=== PATIENT | male | born 1955 | race Hispanic/Latino ===

== ENCOUNTER 2017-10-16 14:25 | Emergency (ER) | payer OTHER ==
--- OUTSIDE RECORDS SUMMARY | 2017-10-16 14:27 | XMS REPORT | Clinical Summary ---
:1955 Author Organization [facility] Address [address] [place] [address] Care Team Providers Name Role Phone Jose Alfredo Prieto MD Primary Care Provider Allergies No Known Allergies Current Medications Prescription Sig. Disp. Refills Start Date End Date Status gabapentin (NEURONTIN) 400 Take 400 mg by 3 12/09/2015 Active MG capsule mouth 2 (two) times a day. METOPROLOL SUCCINATE ORAL Take by mouth. Active ASPIRIN ORAL Take by mouth. Active Active Problems Problem Noted Date Delusional disorder 02/29/2016 Sepsis 02/24/2016 Diabetes mellitus 02/24/2016 Essential hypertension 02/24/2016 Family History Medical History Relation Name Comments Diabetes Mother Diabetes Sister Relation Name Status Comments Mother Sister Social History Tobacco Use Types Packs/Day Years Used Date Never Smoker Alcohol Use Drinks/Week oz/Week Comments Yes occasional Sex Assigned at Date Recorded Not on file Last Filed Vital Signs Not on file Plan of Treatment Health Maintenance Due Date Last Done Comments FOOT EXAM 1963 OPHTHALMOLOGY EXAM 1965 URINE MICROALBUMIN 1963 COLONOSCOPY 2003 SHINGRIX VACCINE (#1) 2003 ZOSTER VACCINE 2013 INFLUENZA VACCINE 01/16/2018 Results Not on fileafter 10/15/2016 Insurance Payer Benefit Plan / Group Subscriber ID Type Phone Address AETNA MEDICARE AETNA MEDICARE HMO/PPO [facility] xxxxxxxx HMO Work: [address] [phone] [place], [place] [address] Home:
--- NOTE | 2017-10-16 15:43 | ER ---
Nurse's Notes [facility] Name: Jose Hoyt Age: 62 yrs Sex: Male : 1955 Arrival Date: 10/16/2017 Time: 14:29 Bed 12 Private MD: David Alfred Diagnosis: Rash and other nonspecific skin eruption Presentation: 10/16 14:44 Presenting complaint: Patient states: I did yard work and I think i got in poison sy. I cant get a hold of Dr. Alfred so I came here. Transition of care: patient was not received from another setting of care. Onset of symptoms was October 11, 2017. Initial Sepsis Screen: Does the patient meet any 2 criteria? No. Patient's initial sepsis screen is negative. Does the patient have a suspected source of infection? No. Patient's initial sepsis screen is negative. Care prior to arrival: None. 14:44 Method Of Arrival: Ambulatory 14:44 Acuity: SANDY 5 Triage Assessment: 14:48 General: Appears in no apparent distress. uncomfortable, Behavior is calm, cooperative, appropriate for age. Pain: Complains of pain in right arm Pain currently is 2 out of 10 on a pain scale. Historical: - Allergies: 14:48 steroids; 14:48 Sulfa (Sulfonamide Antibiotics); - Home Meds: 14:48 aspirin 81 mg Oral TbEC 1 tab once daily [Active]; Vitamin C 1,000 mg Oral tab [Active]; gabapentin 400 mg Oral cap 1 cap 3 times per day [Active]; hydroxychloroquine 200 mg Oral tab 1 tab once daily [Active]; losartan-hydrochlorothiazide 100-25 mg Oral tab 1 tab once daily [Active]; triamterene-hydrochlorothiazid 37.5-25 mg Oral cap 1 cap once daily [Active]; blood pressure medicaiton unknown [Active]; - PMHx: 14:48 Anxiety; Hypertension; - PSHx: 14:48 None; - Immunization history:: Adult Immunizations up to date. - Social history:: Smoking status: Patient/guardian denies using tobacco, Patient/guardian denies using alcohol, street drugs, The patient lives with spouse. - Family history:: not pertinent. Screenin:21 Abuse screen: Denies threats or abuse. Denies injuries from another. Nutritional aj screening: No deficits noted. Tuberculosis screening: No symptoms or risk factors identified. Fall Risk None identified. Assessment: 15:21 General: Appears in no apparent distress. comfortable, Behavior is calm, cooperative, aj appropriate for age. Pain: Denies pain. Neuro: Level of Consciousness is awake, alert, obeys commands, Oriented to person, place, time, situation, Appropriate for age. Respiratory: Airway is patent Respiratory effort is even, unlabored, Respiratory pattern is regular, symmetrical. GI: No signs and/or symptoms were reported involving the gastrointestinal system. Derm: Rash noted that is draining clear fluid, itchy, on right lateral anterior chest, right lateral posterior chest, right antecubital area, dorsal aspect of right forearm and left arm Reports itching. Vital Signs: 14:48 BP 154 / 84; Pulse 76; Resp 15; Temp 98.6(O); Pulse Ox 97% on R/A; Weight 106.59 kg; ch Height 5 ft. 3 in. (160.02 cm); Pain 2/10; 14:48 Body Mass Index 41.63 (106.59 kg, 160.02 cm) ED Course: 14:29 Patient arrived in ED. mr 14:30 Tima David is Private Physician. mr 14:45 Triage completed. 14:48 Arm band placed on left wrist. Patient placed in waiting room. 15:06 Dilcia Mclean MD is Attending Physician. ma2 15:21 Alee Lincoln RN is Primary Nurse. 15:21 Patient has correct armband on for positive identification. aj 15:57 No provider procedures requiring assistance completed. Patient did not have IV access during this emergency room visit. Administered Medications: No medications were administered Outcome: 15:42 Discharge ordered by . ma2 15:57 Discharged to home ambulatory, with family. aj 15:57 Condition: good 15:57 Discharge instructions given to patient, family, Instructed on discharge instructions, follow up and referral plans. medication usage, Demonstrated understanding of instructions, follow-up care, medications, wound care, Prescriptions given X 4. 15:58 Patient left the ED. Signatures: Elizabeth Reyna RN RN ch Myers, Amanda, RN RN aj Rivera, Maria Dilcia Mclean MD MD [facility]
--- NOTE | 2017-10-16 15:43 | EDPHYS ---
Physician Documentation [facility] Name: Jose Hoyt Age: 62 yrs Sex: Male : 1955 Arrival Date: 10/16/2017 Time: 14:29 Bed 12 Private MD: David Alfred ED Physician Dilcia Mclean HPI: 10/16 15:39 This 62 yrs old Male presents to ER via Ambulatory with complaints of Poison ma2 meli. 15:39 The patient's rash thought to be caused by an unknown cause. The rash is located on the ma2 abdomen and right arm. The rash can be described as urticarial, vesicular. Onset: The symptoms/episode began/occurred gradually, 5 day(s) ago. Associated signs and symptoms: Pertinent negatives: None. difficulty breathing, itching, swelling of lips. Severity of symptoms: At their worst the symptoms were moderate. The patient has not experienced similar symptoms in the past. Historical: - Allergies: 14:48 steroids; ch 14:48 Sulfa (Sulfonamide Antibiotics); ch - Home Meds: 14:48 aspirin 81 mg Oral TbEC 1 tab once daily [Active]; Vitamin C 1,000 mg Oral tab ch [Active]; gabapentin 400 mg Oral cap 1 cap 3 times per day [Active]; hydroxychloroquine 200 mg Oral tab 1 tab once daily [Active]; losartan-hydrochlorothiazide 100-25 mg Oral tab 1 tab once daily [Active]; triamterene-hydrochlorothiazid 37.5-25 mg Oral cap 1 cap once daily [Active]; blood pressure medicaiton unknown [Active]; - PMHx: 14:48 Anxiety; Hypertension; ch - PSHx: 14:48 None; ch - Immunization history:: Adult Immunizations up to date. - Social history:: Smoking status: Patient/guardian denies using tobacco, Patient/guardian denies using alcohol, street drugs, The patient lives with spouse. - Family history:: not pertinent. ROS: 15:39 Skin: Positive for rash. ma2 15:39 All other systems are negative. 15:45 Eyes: Negative for injury, pain, redness, and discharge. ma2 Exam: 15:39 Constitutional: This is a well developed, well nourished patient who is awake, alert, ma2 and in no acute distress. Head/Face: Normocephalic, atraumatic. Neck: Trachea midline, no thyromegaly or masses palpated, and no cervical lymphadenopathy. Supple, full range of motion without nuchal rigidity, or vertebral point tenderness. No Meningismus. Chest/axilla: Normal chest wall appearance and motion. Nontender with no deformity. No lesions are appreciated. Cardiovascular: Regular rate and rhythm with a normal S1 and S2. No gallops, murmurs, or rubs. Normal PMI, no JVD. No pulse deficits. Respiratory: Lungs have equal breath sounds bilaterally, clear to auscultation and percussion. No rales, rhonchi or wheezes noted. No increased work of breathing, no retractions or nasal flaring. Abdomen/GI: Soft, non-tender, with normal bowel sounds. No distension or tympany. No guarding or rebound. No evidence of tenderness throughout. 15:39 Skin: rash can be described as bullous, pustular, raised, urticarial, vesicular, on the abdomen and right arm. Vital Signs: 14:48 BP 154 / 84; Pulse 76; Resp 15; Temp 98.6(O); Pulse Ox 97% on R/A; Weight 106.59 kg; ch Height 5 ft. 3 in. (160.02 cm); Pain 2/10; 14:48 Body Mass Index 41.63 (106.59 kg, 160.02 cm) ch MDM: 15:06 Patient medically screened. ma2 15:39 Differential diagnosis: impetigo, varicella, allergic reaction, poison meli. Data ma2 reviewed: vital signs, nurses notes. Test interpretation: by ED physician or midlevel provider:. Counseling: I had a detailed discussion with the patient and/or guardian regarding: the historical points, exam findings, and any diagnostic results supporting the discharge/admit diagnosis, the presence of at least one elevated blood pressure reading (>120/80) during this emergency department visit, the need for outpatient follow up. Administered Medications: No medications were administered Disposition: 10/16/17 15:42 Discharged to Home. Impression: Rash and other nonspecific skin eruption. - Condition is Stable. - Discharge Instructions: Poison Meli, [id number]. - Prescriptions for Benadryl 25 mg Oral Capsule - take 1 capsule by ORAL route every 6 hours As needed; 30 tablet. Clindamycin HCl 300 mg Oral Capsule - take 1 capsule by ORAL route every 6 hours for 10 days; 40 capsule. Tylenol- Codeine #3 300-30 mg Oral Tablet - take 2 tablet by ORAL route every 6 hours As needed; 30 tablet. Hydrocortisone 0.5 % Topical Cream - apply 1 application by TOPICAL route every 12 hours As needed; 30 gram. - Medication Reconciliation Form, Thank You Letter, Antibiotic Education, Prescription Opioid Use form. - Follow up: Private Physician; When: Tomorrow; Reason: Continuance of care. - Problem is new. - Symptoms are unchanged. Signatures: Elizabeth Reyna, RN Alee Dinero ch, RN RN aj Alzahri, Mohammad, MD MD ma2
[2017-10-16 16:51] VITALS: BP 154/84; TEMP 98.6; O2SAT 97
== END 2017-10-16 15:58 | disposition home or self-care (01) ==
LOC: ER 14:25
DX: L23.7 Allergic contact dermatitis due to plants, except food (principal); I10 Essential (primary) hypertension; F41.9 Anxiety disorder, unspecified
CPT/HCPCS: 99282

== ENCOUNTER 2018-05-22 06:18 | Day surgery (SDC) | payer OTHER ==
--- NOTE | 2018-05-21 18:04 | RAD REPORT ---
EXAM DESCRIPTION: Eneida Bean (2 Views)05/21/2018 5:58 pm CLINICAL HISTORY: Preop/hypertension COMPARISON: 2016 FINDINGS: The lungs appear clear of acute infiltrate. The heart is normal size IMPRESSION: No acute abnormalities displayed
[2018-05-21 18:36] LABS: Potassium 3.5 mmol/L (3.5-5.1)
[2018-05-21 18:37] LABS: Absolute Lymphocytes (CBC) 1.6 K/uL (0.7-4.9); Absolute Monocytes 0.5 K/uL (0.1-1.3); Absolute Neutrophil 5.2 K/uL (1.8-8.0); Basophils % 0.5 % (0-1.3); Eosinophils % 1.9 % (0-4.4); Hematocrit 42.6 % (39.6-49.0); Lymphocytes % 21.3 % (15.3-44.8); MCH 30.4 pg (27.0-35.0); MCV 87.7 fL (80-100); MPV 7.9 fL (7.6-11.3); RBC Red Blood Cell Count 4.86 M/uL (4.33-5.43)
--- NOTE | 2018-05-21 22:37 | EKG ---
Test Date: 2018-05-21 Test Time: 17:51:58 Casino Supervisor: SEEMA MEASUREMENT RESULTS: Intervals: Rate: 60 MD: 120 QRSD: 96 QT: 444 QTc: 444 [place]: P: 23 MD: 120 QRS: 23 T: 19 INTERPRETIVE STATEMENTS: Normal sinus rhythm Normal ECG Compared to ECG 05/30/2016 22:19:26 No significant changes Electronically Signed On 05-21-18 22:36:41 W[employer]ATMENT [employer]ANT OPERATOR by Ryan Long
--- OUTSIDE RECORDS SUMMARY | 2018-05-22 06:26 | XMS REPORT | Clinical Summary ---
:1955 Author Organization [facility] Address [address] [place] [address] Care Team Providers Name Role Phone Jose Alfredo Prieto MD Primary Care Provider Allergies No Known Allergies Medications Medication Sig Dispensed Refills Start Date End Date Status gabapentin (NEURONTIN) Take 400 mg by 3 12/09/2015 Active 400 MG capsule mouth 2 (two) times a day. METOPROLOL SUCCINATE Take by mouth. 0 Active ORAL ASPIRIN ORAL Take by mouth. 0 Active Active Problems Problem Noted Date Delusional disorder 02/29/2016 Sepsis 02/24/2016 Diabetes mellitus 02/24/2016 Essential hypertension 02/24/2016 Family History Medical History Relation Name Comments Diabetes Mother Diabetes Sister Relation Name Status Comments Mother Sister Social History Tobacco Use Types Packs/Day Years Used Date Never Smoker Alcohol Use Drinks/Week oz/Week Comments Yes occasional Sex Assigned at Date Recorded Not on file Job Start Date Occupation Industry Not on file Not on file Not on file Travel History Travel Start Travel End No recent travel history available. Last Filed Vital Signs Not on file Plan of Treatment Health Maintenance Due Date Last Done Comments DIABETIC RETINAL EYE EXAM 1955 DIABETIC FOOT EXAM 1963 URINE MICROALBUMIN 1963 COLON CANCER SCREENING 2003 SHINGRIX VACCINE (1 of 2) 2003 ZOSTER VACCINE 2013 PNEUMOCOCCAL POLYSACCHARIDE VACCINE AGE 65 AND OVER 2018 PNEUMOCOCCAL-13 2018 INFLUENZA VACCINE 01/16/2018 Results Not on fileafter 05/21/2017 Insurance Payer Benefit Plan / Group Subscriber ID Type Phone Address AETNA MEDICARE AETNA MEDICARE HMO/PPO [facility] xxxxxxxx HMO [phone] (Work) Advance Directives Patient has advance care planning documents, and code status on file. For more information, please contact:Andi Urbina[address] [place] [id number] Code Status Date Activated Date Inactivated Comments Full Code 02/29/2016 10:08 AM 03/07/2016 6:11 PM Code Status decision reached by: Patient
[2018-05-22] MEDS ORDERED: CEFAZOLIN 1GM (PREMIX IV) 1 GM/50 ML BAG ONE (06:51)
[2018-05-22] MEDS ORDERED: Ringers Lactate 1,000 ML IV ONE (06:51)
[2018-05-22] MEDS ORDERED: PROPOFOL 200 MG/20 ML VIAL IV ONE (07:13)
[2018-05-22] MEDS ORDERED: MIDAZOLAM HCL 2 MG/2 ML INJ ONE (07:14)
[2018-05-22] MEDS ORDERED: LIDOCAINE 1% MPF 5 ML VIAL ONE ×3 (07:14→07:15)
[2018-05-22] MEDS ORDERED: FENTANYL CITR 100 MCG/2 ML ONE (07:14)
[2018-05-22] MEDS ORDERED: ONDANSETRON HCL 40 MG/20 ML VIAL ONE (08:42)
[2018-05-22] MEDS ORDERED: KETOROLAC 30 MG/ML INJ ONE (08:42)
--- NOTE | 2018-05-22 08:50 | P.BOP ---
Preoperative diagnosis: infected back large subcutaneous mass with abscess Postoperative diagnosis: same Primary procedure: Excision infected back large subcutaneous mass 8x8 cm Secondary procedure: with abscess drainage Estimated blood loss: <10cc Specimen: mass and abscess Findings: as above Anesthesia: General Complications: None Transferred to: Recovery Room Condition: Good
[2018-05-22] MEDS: MEPERIDINE HCL 25 MG/0.5 ML ONE ×2 (09:14→09:19)
[2018-05-22] MEDS ORDERED: MEPERIDINE HCL 25 MG/0.5 ML ONE (09:36)
[2018-05-22 10:26] VITALS: TEMP 97
[2018-05-22] MEDS ORDERED: CODEINE 30MG/APAP 300MG TAB ONE (10:29)
[2018-05-22 12:02] VITALS: BP 130/68; O2SAT 98
--- NOTE | 2018-05-22 19:38 | OP ---
Date of Procedure: 05/22/2018 Surgeon: Chico Astorga MD Postoperative Diagnosis: Infected back subcutaneous mass with cellulitis and abscess. Postoperative Diagnosis: Infected back subcutaneous mass with cellulitis and abscess. Procedure: Excision of infected back large deep subcutaneous mass with drainage of an abscess, 8 x 8 cm. Specimens: Masses with pus culture. Anesthesia: General plus local. Indications: This is a case of a 63-year-old patient with a large mass in the back in the last few d ays. It is red, warm, and it is just secreting purulent discharge. The patient came to the office i n the last few hours and needs to be urgently scheduled in surgery for wide excision of the area with drainage of an abscess with benefits, alternatives, and risks, which include, but are not limited to infection, bleeding, damage to adjacent structures, anesthesia complication, nonhealing wound, MN, a nd even . He also understands this may not relieve any symptoms. He might need more than one s urgical intervention. He understood, signed a consent. Description Of Procedure: The patient was brought to operative room placed supine position. Anesthe good was done without complication. The area of concern was marked by me and the patient in the [facility] ng room. When the patient was placed in lateral decubitus position, a time-out was called. The area was prepped and draped in a sterile fashion. The patient has a large cavity coming from the mass itself when going to an abscess. We proceeded to delineate the area and then we did a wide excision over that region that led us into a mass in the deep subcutanous tissue and a deep subcutane ous abscess. So, the mass was excised. The abscess was drained. Cultures were obtained. Hemostasi s was obtained. Then, the area was packed with wet-to-dry dressing. The patient tolerated the proce dure well. The patient was sent to recovery room in stable condition. Disposition: Home. Activity: As tolerated. No heavy lifting. The patient has already home health agency that is going to go to his home to do wet-to-dry dressing daily with saline. Medication include Tylenol No. 3 q.4 hours p.r.n. pain. He is tolerating antibio tics. We are going to do wet-to-dry dressing with saline. JULIÁN/NAVNEET Voice ID: [id number] Report ID: [id number]
== END 2018-05-22 11:15 | disposition home or self-care (01) ==
LOC: OR 06:18
PROVIDERS: ATTEND Surgery
PROC: 0JB70ZZ Excision of Back Subcutaneous Tissue and Fascia, Open Approach (ICD-10-PCS; 2018-05-22)
PROC: 0J970ZZ Drainage of Back Subcutaneous Tissue and Fascia, Open Approach (ICD-10-PCS; principal; 2018-05-22 07:30)
DX: L72.0 Epidermal cyst (principal); L02.212 Cutaneous abscess of back [any part, except buttock and flank]; L03.312 Cellulitis of back [any part except buttock and flank]; I10 Essential (primary) hypertension; Z88.2 Allergy status to sulfonamides; Z88.8 Allergy status to other drugs, medicaments and biological substances; Z80.0 Family history of malignant neoplasm of digestive organs; Z82.49 Family history of ischemic heart disease and other diseases of the circulatory system; Z83.3 Family history of diabetes mellitus
CPT/HCPCS: 10060; 11406; 36415; 71046; 80048; 82962 ×2; 85025; 87070; 87075; 87205; 88304; 93005; J0690; J2175 ×2; J2405; J2704; J3010; J2250

== ENCOUNTER 2018-07-13 00:49 | Observation (INO) | payer OTHER ==
--- OUTSIDE RECORDS SUMMARY | 2018-07-13 00:50 | XMS REPORT | Clinical Summary ---
:1955 Author Organization [facility] Address [address] [place] [address] Care Team Providers Name Role Phone Jose [...] URINE MICROALBUMIN 1963 COLON CANCER SCREENING 2003 SHINGLES VACCINES (1 of 2) 2003 PNEUMOCOCCAL POLYSACCHARIDE VACCINE AGE 65 AND OVER 2018 PNEUMOCOCCAL-13 2018 INFLUENZA VACCINE 01/16/2018 Results Not on fileafter 07/12/2017 Insurance Payer Benefit Plan / Group Subscriber ID Type Phone Address AETNA MEDICARE AETNA MEDICARE HMO/PPO [facility] xxxxxxxx HMO [phone] (Work) Advance Directives Patient has advance care planning documents, and code status on file. For more information, please contact:Andi Jama[address] [place] [address] Code Status Date Activated Date Inactivated Comments Full Code 02/29/2016 10:08 AM 03/07/2016 6:11 PM Code Status decision reached by: Patient
[2018-07-13] MEDS ORDERED: ASPIRIN 81 MG CHEWABLE TABLET ONE (01:23)
[2018-07-13] MEDS ORDERED: NITROGLYCERIN 0.4 MG/TAB SL ONE (01:24)
[2018-07-13] MEDS ORDERED: NA CHLORIDE 0.9% 1,000 ML ONE (01:24)
[2018-07-13 01:39] LABS: Absolute Monocytes 0.6 K/uL (0.1-1.3); Absolute Neutrophil 6.4 K/uL (1.8-8.0); Basophils % 0.7 % (0-1.3); Eosinophils % 1.7 % (0-4.4); Hematocrit 44.2 % (39.6-49.0); MPV 8.2 fL (7.6-11.3); Monocytes % 6.6 % (3.3-12.3); RBC Red Blood Cell Count 5.08 M/uL (4.33-5.43)
[2018-07-13 01:40] LABS: Protime INR 1.01
[2018-07-13 02:14] LABS: Albumin 3.5 g/dL (3.4-5.0); Bilirubin Direct 0.2 mg/dL (0-0.2); Bilirubin Total 0.5 mg/dL (0.2-1.0); Potassium 3.3 mmol/L (3.5-5.1); Troponin (Emerg Dept Use Only) 0.02 ng/mL (0.0-0.045)
--- NOTE | 2018-07-13 02:25 | EDPHYS ---
Physician Documentation [facility] Name: Jose Hoyt Age: 63 yrs Sex: Male : 1955 Arrival Date: 07/13/2018 Time: 00:52 Bed 14 Private MD: David Alfred ED Physician Dangelo Vallejo HPI: 07/13 01:06 This 63 yrs old Male presents to ER via Unassigned with complaints of Chest cp Pain. Historical: - Allergies: 01:00 steroids; cc3 01:00 Sulfa (Sulfonamide Antibiotics); cc3 - Home Meds: 01:00 aspirin 81 mg Oral TbEC 1 tab once daily [Active]; blood pressure medicaiton unknown cc3 [Active]; gabapentin 400 mg Oral cap 1 cap 3 times per day [Active]; hydroxychloroquine 200 mg Oral tab 1 tab once daily [Active]; losartan-hydrochlorothiazide 100-25 mg Oral tab 1 tab once daily [Active]; metformin 500 mg Oral Tb24 1 tab once daily [Active]; metoprolol tartrate 50 mg Oral tab 1 tab 2 times per day [Active]; triamterene-hydrochlorothiazid 37.5-25 mg Oral cap 1 cap once daily [Active]; Vitamin B-6 100 mg Oral tab [Active]; Vitamin C 1,000 mg Oral tab [Active]; Vitamin D Oral 1000 unit daily [Active]; - PMHx: 01:00 Anxiety; Diabetes - NIDDM; Hypertension; neuropathy; cc3 - Immunization history:: Adult Immunizations not up to date. - Social history:: Smoking status: Patient/guardian denies using tobacco, never smoked. - Ebola Screening: : No symptoms or risks identified at this time. ROS: 01:06 Eyes: Negative for injury, pain, redness, and discharge. cp 01:06 Constitutional: Negative for body aches, chills, fever, poor PO intake. 01:06 ENT: Negative for drainage from ear(s), ear pain, sore throat, difficulty swallowing, difficulty handling secretions. 01:06 Cardiovascular: Positive for chest pain, Negative for edema, palpitations. 01:06 Respiratory: Negative for cough, shortness of breath, wheezing. 01:06 Abdomen/GI: Negative for abdominal pain, nausea, vomiting, and diarrhea, constipation. 01:06 Back: Negative for radiated pain. 01:06 : Negative for urinary symptoms. 01:06 Skin: Negative for cellulitis, rash. 01:06 Neuro: Positive for headache, Negative for altered mental status, weakness. 01:06 All other systems are negative. Exam: 01:07 Head/Face: Normocephalic, atraumatic. Eyes: Pupils equal round and reactive to light, cp extra-ocular motions intact. Lids and lashes normal. Conjunctiva and sclera are non-icteric and not injected. Cornea within normal limits. Periorbital areas with no swelling, redness, or edema. ENT: Nares patent. No nasal discharge, no septal abnormalities noted. Tympanic membranes are normal and external auditory canals are clear. Oropharynx with no redness, swelling, or masses, exudates, or evidence of obstruction, uvula midline. Mucous membranes moist. Neck: Trachea midline, no thyromegaly or masses palpated, and no cervical lymphadenopathy. Supple, full range of motion without nuchal rigidity, or vertebral point tenderness. No Meningismus. Chest/axilla: Normal chest wall appearance and motion. Nontender with no deformity. No lesions are appreciated. 01:07 Constitutional: The patient appears in no acute distress, alert, awake, non-diaphoretic, non-toxic, well developed, well nourished, obese. 01:07 Cardiovascular: Rate: normal, Rhythm: regular, Heart sounds: murmur, not appreciated, rub, not appreciated, gallop, not appreciated, Edema: is not appreciated, JVD: is not appreciated. 01:07 Respiratory: the patient does not display signs of respiratory distress, Respirations: normal, no use of accessory muscles, no retractions, no splinting, no tachypnea, labored breathing, is not present, Breath sounds: are clear throughout, no decreased breath sounds, no stridor, no wheezing. 01:07 Abdomen/GI: Inspection: obese Bowel sounds: active, all quadrants, Palpation: abdomen is soft and non-tender, in all quadrants, rebound tenderness, is not appreciated, voluntary guarding, is not appreciated, involuntary guarding, is not appreciated. 01:07 Back: ROM is normal. 01:07 Skin: cellulitis, is not appreciated, no rash present. 01:07 Neuro: Orientation: to person, place \T\ time. Mentation: is normal, Cerebellar function: is grossly normal, Motor: moves all fours, strength is normal, Sensation: is normal. Vital Signs: 01:00 BP 136 / 77 LA; Pulse 75; Resp 20 S; Temp 98.8(O); Pulse Ox 97% on R/A; Weight 111.13 cc3 kg (R); Height 5 ft. 3 in. (160.02 cm) (R); Pain 5/10; 01:30 BP 127 / 66 RA; Pulse 75; Resp 18 S; Pulse Ox 95% on R/A; cc3 01:35 BP 118 / 72 LA; Pulse 67; Resp 18 S; Pulse Ox 95% on R/A; cc3 02:15 BP 118 / 72 RA; Pulse 57; Resp 18 S; Pulse Ox 95% on R/A; cc3 03:06 BP 130 / 64; Pulse 50; Resp 16 S; Pulse Ox 96% on R/A; ds4 04:15 BP 141 / 73; Pulse 53; Resp 16; Pulse Ox 99% on 2 lpm NC; jb4 05:00 BP 116 / 75; Pulse 50; Resp 16; Pulse Ox 98% on 2 lpm NC; jb4 01:00 Body Mass Index 43.40 (111.13 kg, 160.02 cm) cc3 MDM: 00:53 Patient medically screened. cp 01:09 Differential diagnosis: abnormal EKG, acute myocardial infarction, acute pericarditis, cp chest wall pain, cholecystitis, Cholelithiasis costochondritis, esophagitis, gastritis, pulmonary embolus, stable angina, thoracic aortic disection, unstable angina. The patient was given aspirin in the Emergency Department. 02:23 Data reviewed: vital signs, nurses notes, lab test result(s), EKG, radiologic studies, cp plain films. Test interpretation: by ED physician or midlevel provider: ECG, plain radiologic studies. Physician consultation: Charles Mishra MD was called at 02:23, was contacted at 02:23, regarding admission, to the telemetry unit. patient's condition. 07/13 01:05 Order name: Basic Metabolic Panel; Complete Time: 02:21 cp 07/13 02:21 Interpretation: Normal except: K 3.3; GLUC 167; BUN 21; GFR 62. cp 07/13 01:05 Order name: CBC with Diff; Complete Time: 02:11 cp 07/13 02:11 Interpretation: Reviewed. cp 07/13 01:05 Order name: LFT's; Complete Time: 02:21 cp 07/13 02:21 Interpretation: Normal except: ALK 122; A/G 1.0. cp 07/13 01:05 Order name: Magnesium; Complete Time: 02:21 cp 07/13 01:05 Order name: NT PRO-BNP; Complete Time: 02:21 cp 07/13 01:05 Order name: PT-INR; Complete Time: 02:11 cp 07/13 01:05 Order name: Troponin (emerg Dept Use Only); Complete Time: 02:21 cp 07/13 02:22 Interpretation: Within normal limits: TROPED 0.02. cp 07/13 01:05 Order name: XRAY Chest (1 view) cp 07/13 01:05 Order name: EKG; Complete Time: 01:06 cp 07/13 01:05 Order name: Cardiac monitoring; Complete Time: 01:09 cp 07/13 01:05 Order name: EKG - Nurse/Tech; Complete Time: 01:09 cp 07/13 01:05 Order name: IV Saline Lock; Complete Time: 01:39 cp 07/13 01:05 Order name: Labs collected and sent; Complete Time: 01:39 cp 07/13 01:05 Order name: O2 Per Protocol; Complete Time: 01:10 cp 07/13 01:05 Order name: O2 Sat Monitoring; Complete Time: 01:10 cp 07/13 01:10 Order name: Blood Pressure Recheck: bilateral upper extremity; Complete Time: 01:39 cp Administered Medications: 01:15 Drug: Aspirin Chewable Tablet 324 mg Route: PO; cc3 01:54 Follow up: Response: No adverse reaction cc3 01:15 Drug: Nitroglycerin 0.4 mg Route: Sublingual; cc3 01:53 Follow up: Response: No adverse reaction cc3 01:30 Drug: NS 0.9% 500 ml Route: IV; Rate: bolus; Site: left antecubital; cc3 02:00 Follow up: Response: No adverse reaction; IV Status: Completed infusion; IV Intake: cc3 500ml 02:00 Drug: NS 0.9% 1000 ml Route: IV; Rate: 100 ml/hr; Site: left antecubital; cc3 05:06 Follow up: Response: No adverse reaction; IV Status: Infusion continued upon admission jb4 02:27 CANCELLED (Physician Discretion): fentaNYL (PF) 25 mcg IVP once cp Disposition: 03:31 Co-signature as Attending Physician, Dangelo Vallejo MD I agree with the assessment and plan of care. Disposition: 07/13/18 02:24 Hospitalization ordered by Charles Mishra for Observation. Preliminary diagnosis is Chest pain, unspecified. - Bed requested for Telemetry/MedSurg (observation). - Status is Observation. jb4 - Condition is Stable. - Problem is new. - Symptoms have improved. UTI on Admission? No Signatures: Dispatcher [employer] EDMS Sarah Crowe RN RN Gigi Jacob PA PA cp Bryson, James, RN RN jb4 Dagnelo Vallejo MD MD gs Cordel, Charlene cc3 Corrections: (The following items were deleted from the chart) 02:27 02:27 fentaNYL (PF) 25 mcg IVP once ordered. cp cp 04:46 02:24 Hospitalization Ordered by Charles Mishra MD for Observation. Preliminary kl diagnosis is Chest pain, unspecified. Bed requested for Telemetry/MedSurg (observation). Status is Observation. Condition is Stable. Problem is new. Symptoms have improved. UTI on Admission? No. cp 05:27 04:46 07/13/2018 02:24 Hospitalization Ordered by Charles Mishra MD for Observation. jb4 Preliminary diagnosis is Chest pain, unspecified. Bed requested for Telemetry/MedSurg (observation). Status is Observation. Condition is Stable. Problem is new. Symptoms have improved. UTI on Admission? No. kl
--- NOTE | 2018-07-13 02:25 | ER ---
Nurse's Notes [facility] Name: Jose Hoyt Age: 63 yrs Sex: Male : 1955 Arrival Date: 07/13/2018 Time: 00:52 Bed 14 Private MD: David Alfred Diagnosis: Chest pain, unspecified Presentation: 07/13 01:00 Presenting complaint: Patient states: non radiating right sided chest pain that started cc3 at around 2340H tonight. Transition of care: patient was not received from another setting of care. Onset of symptoms was July 12, 2018. Risk Assessment: Do you want to hurt yourself or someone else? Patient reports no desire to harm self or others. Initial Sepsis Screen: Does the patient meet any 2 criteria? No. Patient's initial sepsis screen is negative. Does the patient have a suspected source of infection? No. Patient's initial sepsis screen is negative. Care prior to arrival: None. 01:00 Method Of Arrival: Wheelchair cc3 01:00 Acuity: SANDY 3 cc3 Triage Assessment: 01:00 General: Appears in no apparent distress. uncomfortable, Behavior is calm, cooperative, cc3 appropriate for age. Pain: Complains of pain in right side chest pain Pain currently is 5 out of 10 on a pain scale. Quality of pain is described as aching. EENT: No signs and/or symptoms were reported regarding the EENT system. Neuro: Level of Consciousness is awake, alert, obeys commands, Oriented to person, place, time, situation, Appropriate for age. Cardiovascular: Reports chest pain, since 2340H tonight. Respiratory: Airway is patent Respiratory effort is even, unlabored, Respiratory pattern is regular, symmetrical. GI: Abdomen is round obese. : No signs and/or symptoms were reported regarding the genitourinary system. Derm: No signs and/or symptoms reported regarding the dermatologic system. Musculoskeletal: Circulation, motion, and sensation intact. Range of motion:. Historical: - Allergies: 01:00 steroids; cc3 01:00 Sulfa (Sulfonamide Antibiotics); cc3 - Home Meds: 01:00 aspirin 81 mg Oral TbEC 1 tab once daily [Active]; blood pressure medicaiton unknown cc3 [Active]; gabapentin 400 mg Oral cap 1 cap 3 times per day [Active]; hydroxychloroquine 200 mg Oral tab 1 tab once daily [Active]; losartan-hydrochlorothiazide 100-25 mg Oral tab 1 tab once daily [Active]; metformin 500 mg Oral Tb24 1 tab once daily [Active]; metoprolol tartrate 50 mg Oral tab 1 tab 2 times per day [Active]; triamterene-hydrochlorothiazid 37.5-25 mg Oral cap 1 cap once daily [Active]; Vitamin B-6 100 mg Oral tab [Active]; Vitamin C 1,000 mg Oral tab [Active]; Vitamin D Oral 1000 unit daily [Active]; - PMHx: 01:00 Anxiety; Diabetes - NIDDM; Hypertension; neuropathy; cc3 - Immunization history:: Adult Immunizations not up to date. - Social history:: Smoking status: Patient/guardian denies using tobacco, never smoked. - Ebola Screening: : No symptoms or risks identified at this time. Screenin:00 Abuse screen: Denies threats or abuse. Denies injuries from another. Nutritional cc3 screening: No deficits noted. Tuberculosis screening: No symptoms or risk factors identified. Fall Risk Ambulatory Aid- None/Bed Rest/Nurse Assist (0 pts). Gait- Normal/Bed Rest/Wheelchair (0 pts) Mental Status- Oriented to own ability (0 pts). Assessment: 01:00 Pain: Pain does not radiate. Pain began 2 hours ago. cc3 02:21 Reassessment: Patient appears in no apparent distress at this time. Patient and/or cc3 family updated on plan of care and expected duration. Pain level reassessed. Patient is alert, oriented x 3, equal unlabored respirations, skin warm/dry/pink. 03:25 Reassessment: Patient appears in no apparent distress at this time. Patient and/or jb4 family updated on plan of care and expected duration. Pain level reassessed. Patient is alert, oriented x 3, equal unlabored respirations, skin warm/dry/pink. 03:49 Reassessment: Patient appears in no apparent distress at this time. Patient and/or jb4 family updated on plan of care and expected duration. Pain level reassessed. Pt is resting in bed with eyes closed, is at the bedside. Respirations are even and unlabored. Pt desats while asleep, O2 dropped to 66% on room air. Pt placed on 2L per nasal canula. O% saturations currently 99% on 2L NC. 04:27 Reassessment: Patient appears in no apparent distress at this time. No changes from jb4 previously documented assessment. Patient and/or family updated on plan of care and expected duration. Pain level reassessed. 05:00 Reassessment: Patient appears in no apparent distress at this time. No changes from jb4 previously documented assessment. Patient and/or family updated on plan of care and expected duration. Pain level reassessed. Vital Signs: 01:00 BP 136 / 77 LA; Pulse 75; Resp 20 S; Temp 98.8(O); Pulse Ox 97% on R/A; Weight 111.13 cc3 kg (R); Height 5 ft. 3 in. (160.02 cm) (R); Pain 5/10; 01:30 BP 127 / 66 RA; Pulse 75; Resp 18 S; Pulse Ox 95% on R/A; cc3 01:35 BP 118 / 72 LA; Pulse 67; Resp 18 S; Pulse Ox 95% on R/A; cc3 02:15 BP 118 / 72 RA; Pulse 57; Resp 18 S; Pulse Ox 95% on R/A; cc3 03:06 BP 130 / 64; Pulse 50; Resp 16 S; Pulse Ox 96% on R/A; ds4 04:15 BP 141 / 73; Pulse 53; Resp 16; Pulse Ox 99% on 2 lpm NC; jb4 05:00 BP 116 / 75; Pulse 50; Resp 16; Pulse Ox 98% on 2 lpm NC; jb4 01:00 Body Mass Index 43.40 (111.13 kg, 160.02 cm) cc3 ED Course: 00:52 Patient arrived in ED. es 00:52 David Alfred is Private Physician. es 00:53 [facility] cp 00:53 Dangelo Vallejo MD is Attending Physician. cp 01:00 Patient maintains SpO2 saturation greater than 95% on room air. cc3 01:00 Arm band placed on right wrist. Patient notified of wait time. EKG completed in triage. cc3 Results shown to MD. 01:00 Patient has correct armband on for positive identification. Placed in gown. Bed in low cc3 position. Call light in reach. Side rails up X 1. bus driver/monitor on. Pulse ox on. NIBP on. 01:09 Evangelina Griffin is Primary Nurse. cc3 01:15 Inserted saline lock: 20 gauge in left antecubital area, using aseptic technique. Blood cc3 collected. 01:20 X-ray completed. Portable x-ray completed in exam room. Patient tolerated procedure sg4 well. 01:22 XRAY Chest (1 view) In Process Unspecified. EDMS 01:41 Triage completed. cc3 02:24 Charles Mishra MD is Hospitalizing Provider. cp 02:38 Report given to RADHA Kidd. cc3 05:05 No provider procedures requiring assistance completed. Patient admitted, IV remains in jb4 place. Administered Medications: 01:15 Drug: Aspirin Chewable Tablet 324 mg Route: PO; cc3 01:54 Follow up: Response: No adverse reaction cc3 01:15 Drug: Nitroglycerin 0.4 mg Route: Sublingual; cc3 01:53 Follow up: Response: No adverse reaction cc3 01:30 Drug: NS 0.9% 500 ml Route: IV; Rate: bolus; Site: left antecubital; cc3 02:00 Follow up: Response: No adverse reaction; IV Status: Completed infusion; IV Intake: cc3 500ml 02:00 Drug: NS 0.9% 1000 ml Route: IV; Rate: 100 ml/hr; Site: left antecubital; cc3 05:06 Follow up: Response: No adverse reaction; IV Status: Infusion continued upon admission jb4 02:27 CANCELLED (Physician Discretion): fentaNYL (PF) 25 mcg IVP once cp Intake: 02:00 IV: 500ml; Total: 500ml. cc3 Outcome: 02:24 Decision to Hospitalize by Provider. cp 05:05 Admitted to Tele accompanied by nurse, family with patient, via stretcher, room 403, jb4 with oxygen, with chart, Report called to RADHA Diana 05:05 Condition: stable 05:05 Discharge instructions given to patient, significant other, Instructed on the need for admit, Demonstrated understanding of instructions. 05:27 Patient left the ED. jb4 Signatures: Dispatcher [employer] EDMS Kimberly Cruz Donovan ds4 Gigi Posadas PA PA cp Bryson, James, RN RN jb4 Evangelina Griffin cc3 Olga Hoyt sg4 Corrections: (The following items were deleted from the chart) 01:38 01:00 BP 136 / 77; Pulse 75bpm; Resp 20bpm; Spontaneous; Pulse Ox 97% RA; Temp 98.8F cc3 Oral; 111.13 kg Reported; Height 5 ft. 3 in. Reported; BMI: 43.4; Pain 5/10; cc3 02:20 02:15 BP 118 / 72; Pulse 57bpm; Resp 18bpm; Spontaneous; Pulse Ox 95% RA; cc3 cc3
--- NOTE | 2018-07-13 04:32 | P.HP ---
Certification for Inpatient Patient admitted to: Observation With expected LOS: <2 Midnights Practitioner: I am a practitioner with admitting privileges, knowledge of patient current condition, hospital course, and medical plan of care. Services: Services provided to patient in accordance with Admission requirements found in Title 42 Section 412.3 of the Code of Federal Regulations Patient History Date of Service: 07/13/18 Reason for admission: chest pain History of Present Illness: Mr Hoyt is a 63 years old male with history of HTN, DM II, anxiety, hypothyroidism, who start with chest pain around 23:00 last night. He describe a pressure like pain, substernal, without radiation, lasting for 40 seconds. Intensity 01/25, he denied nausea, vomiting, dizziness, SOB or sweating episodes. He has never had this pain in the past. However, along last night, the pain came back about 4 time, always with the same characteristics. EKG shows SR at 70's bpm without ST-T abnormalities. Initial trop I is negative. Allergies Corticosteroids (Glucocorticoids) Allergy (Intermediate, Verified 05/21/18 17:30 ) Itching/Hives/Rash Sulfa (Sulfonamide Antibiotics) Allergy (Intermediate, Verified 05/21/18 17:30) Itching/Hives/Rash Home medications list reviewed: Yes Home Medications: Hydroxychloroquine [Plaquenil*] 200 mg PO DAILY 11/08/12 Ascorbic Acid [Vitamin C] 1,000 mg PO DAILY 04/02/14 Cholecalciferol (Vitamin D3) [Vitamin D] 1,000 unit PO DAILY 04/02/14 Gabapentin [Neurontin*] 400 mg PO BID 04/02/14 Glucosamine HCl/Chondr Wong A Na [Osteo Bi-Flex Caplet] 1 tab PO DAILY 04/02/14 Loratadine [Claritin*] 10 mg PO DAILY 04/02/14 Atenolol [Tenormin] 50 mg PO DAILY AFTER SUPPER 05/21/18 Levothyroxine [Synthroid] 75 mcg PO [id number] 05/21/18 Losartan/Hydrochlorothiazide [Losartan-Hctz 100-25 mg Tab] 1 each PO DAILY AFTER SUPPER 05/21/18 Potassium Chloride 10 meq PO DAILY 05/21/18 Risperidone [Risperdal] 2 mg PO DAILY 05/21/18 Simvastatin 10 mg PO DAILY 05/21/18 Zinc 1 tab PO BID 05/21/18 Codeine/APAP [Tylenol W/Codeine #3 tab] 1 tab PO Q4HP PRN #30 tab 05/22/18 NaCl 0.9% Irr Bottle [Ns Irrigation Bottle] 1,000 ml IRR DAILY #1 btl 05/22/18 - Past Medical/Surgical History Diabetic: Yes -: HTN -: Diabetes -: Peripheral neuropathy -: obesity -: JHONNY -: back surgery - Family History Mother -: Heart disease, Diabetes, Cancer, Liver disease Notes: mother of liver cancer. Father -: Heart disease - Social History Smoking Status: Never smoker Alcohol use: Yes CD- Drugs: No Caffeine use: Yes Place of Residence: Home Review of Systems 10-point ROS is otherwise unremarkable Physical Examination - Physical Exam General: Alert, In no apparent distress HEENT: Atraumatic, PERRLA, Mucous membr. moist/pink, EOMI, Sclerae nonicteric Neck: Supple, 2+ carotid pulse no bruit, No LAD, Without JVD or thyroid abnormality Respiratory: Clear to auscultation bilaterally, Normal air movement Cardiovascular: Regular rate/rhythm, Normal S1 S2 Gastrointestinal: Normal bowel sounds, No tenderness Musculoskeletal: No tenderness Integumentary: No rashes Neurological: Normal speech, Normal strength at 5/5 x4 extr, Normal tone, Normal affect Lymphatics: No axilla or inguinal lymphadenopathy - Studies Laboratory Data (last 24 hrs) 07/13/18 01:20: PT 11.9, INR 1.01 07/13/18 01:20: WBC 9.3, Hgb 15.4, Hct 44.2, Plt Count 187 07/13/18 01:20: Sodium 141, Potassium 3.3 L, BUN 21 H, Creatinine 1.18, Glucose 167 H, Magnesium 2.0, Total Bilirubin 0.5, AST 20, ALT 29, Alkaline Phosphatase 122 H Assessment and Plan - Problems (Diagnosis) (1) Chest pain Current Visit: Yes Status: Acute Qualifiers: Chest pain type: precordial pain Qualified Code(s): R07.2 - Precordial pain (2) Obesity Current Visit: Yes Status: Acute Qualifiers: Obesity type: due to excess calories Obesity classification: unspecified obesity classification Serious obesity comorbidity presence: unspecified whether serious comorbidity present Qualified Code(s): E66.09 - Other obesity due to excess calories (3) JHONNY on CPAP Current Visit: Yes Status: Acute (4) Diabetes mellitus Onset Date: 04/03/14 Current Visit: No Status: Acute Qualifiers: Diabetes mellitus type: type 2 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 He has several risk factors for CAD, including DM, HTN, obesity. Will order serial cardiac enzymes, EKG, ECHO and cardiology consult. - Advance Directives Does patient have a Living Will: Yes Does patient have a Durable POA for Healthcare: No - Code Status/Comfort Care Code Status: Full Code
[2018-07-13 05:44] VITALS: O2SAT 98
[2018-07-13] MEDS ORDERED: ATORVASTATIN 80 MG TAB PO SCH (05:46)
[2018-07-13] MEDS ORDERED: INSULIN -REGULAR HUMAN 50 UNIT/0.5 ML ML SQ SCH ×2 (06:00→07:30)
[2018-07-13 06:11] VITALS: BMI 42.7
[2018-07-13 06:35] LABS: HDL Cholesterol 39 mg/dL (40-60); LDL Cholesterol, Calculated 47 (<130); Troponin I < 0.02 ng/mL (0.0-0.045)
[2018-07-13] MEDS ORDERED: D50W 25 GM/50 ML SYRINGE IV PRN (07:02)
[2018-07-13] MEDS ORDERED: HYDRALAZINE HCL 20 MG/ML VIAL IV PRN (07:02)
[2018-07-13] MEDS ORDERED: GLUCAGON 1 MG/VIAL IM PRN (07:02)
[2018-07-13] MEDS ORDERED: LACTULOSE 20 GM/30 ML UCUP PO PRN (07:30)
--- NOTE | 2018-07-13 08:20 | RAD REPORT ---
EXAM DESCRIPTION: RAD - Chest Single View - 07/13/2018 1:21 am CLINICAL HISTORY: Chest pain COMPARISON: May 2018 TECHNIQUE: AP portable chest image was obtained 0115 hours . FINDINGS: Normal lung volumes. No acute lung parenchymal process. Lung markings match the prior stud y. Cardiac silhouette upper normal. Vasculature within normal limits for portable imaging. No measura ble pleural effusion and no pneumothorax. No acute bony abnormality seen. No acute aortic findings montemayor spected. IMPRESSION: No acute cardiopulmonary finding. No suspicious change from comparison.
[2018-07-13 08:51] LABS: Thyroid Stimulating Hormone 1.29 uIU/mL (0.360-3.740)
[2018-07-13] MEDS ORDERED: ZINC PO SCH (09:00)
[2018-07-13] MEDS ORDERED: ATENOLOL 50 MG TAB PO SCH (09:00)
[2018-07-13] MEDS ORDERED: THIAMINE HCL 100 MG TABLET PO SCH (09:00)
[2018-07-13] MEDS ORDERED: ASPIRIN EC 81 MG TAB PO SCH (09:00)
[2018-07-13] MEDS ORDERED: FAMOTIDINE 20 MG TAB PO SCH (09:00)
[2018-07-13] MEDS ORDERED: GABAPENTIN 400 MG CAP PO SCH (09:00)
[2018-07-13] MEDS ORDERED: LORATADINE 10 MG TAB PO SCH (09:00)
[2018-07-13] MEDS ORDERED: ENOXAPARIN 40 MG/0.4 ML SQ SCH (09:00)
[2018-07-13] MEDS ORDERED: CYANOCOBALAMIN 1,000 MCG TAB PO SCH (09:00)
[2018-07-13] MEDS ORDERED: PYRIDOXINE (VIT B6) 50 MG TAB PO SCH (10:00)
[2018-07-13] MEDS ORDERED: HYDROXYCHLOROQUINE 200MG TAB PO SCH (10:00)
[2018-07-13] MEDS ORDERED: NIFEDIPINE XL 30 MG TABLET PO SCH (10:00)
[2018-07-13] MEDS: ASCORBIC ACID 500 MG TABLET PO SCH (10:15)
--- NOTE | 2018-07-13 11:36 | EKG ---
Test Date: 2018-07-13 Test Time: 09:03:49 [employer] Manager: PÉREZ MEASUREMENT RESULTS: Intervals: Rate: 64 TN: 144 QRSD: 92 QT: 420 QTc: 433 [place]: P: 70 TN: 144 QRS: 86 T: 23 INTERPRETIVE STATEMENTS: Sinus rhythm with marked sinus arrhythmia Nonspecific T wave abnormality Abnormal ECG Compared to ECG 07/13/2018 01:01:07 T-wave abnormality now present Sinus bradycardia no longer present Myocardial infarct finding no longer present Electronically Signed On 07-13-18 11:35:48 SEWING MACHINE OPERATOR ZIPPER by Lul Hernandez
--- NOTE | 2018-07-13 11:37 | EKG ---
Test Date: 2018-07-13 Test Time: 01:01:07 [employer] Supervisor: ANDREW MEASUREMENT RESULTS: Intervals: Rate: 57 MN: 118 QRSD: 90 QT: 434 QTc: 422 [place]: P: 38 MN: 118 QRS: 17 T: 3 INTERPRETIVE STATEMENTS: Sinus bradycardia with marked sinus arrhythmia Cannot rule out Anterior infarct, age undetermined Abnormal ECG Compared to ECG 05/21/2018 17:51:58 Myocardial infarct finding now present Sinus rhythm no longer present Electronically Signed On 07-13-18 11:35:51 SPRAY DRIER OPERATOR by Lul Hernandez
--- NOTE | 2018-07-13 12:10 | P.DS ---
Admission Date: 07/13/18 Discharge Date: 07/13/18 Primary Care Provider: Dr. Alfred Disposition: ROUTINE DISCHARGE Discharge Condition: GOOD Reason for Admission: chest pain Consultations: Cardiology-Dr. Hernandez Procedures: Medical Problem List: Chest pain, noncardiac Hypertension Diabetes mellitus type 2 Obstructive sleep apnea Chronic pain Depression with anxiety Obesity, BMI 42 Brief History of Present Illness: 63-year-old male presented to the emergency room with chest pain. Initial cardiac enzymes unremarkable. Patient admitted for further evaluation. Hospital Course: Patient presented with chest pain. Patient admitted for further evaluation. Patient with underlying diabetes, hypertension, obstructive sleep apnea. Patient reports having stress test done 2 years ago which was unremarkable. Patient seen and evaluated by Cardiology. Cardiac enzymes unremarkable. Cardiology recommends no intervention at this time. Patient may follow up with cardiology later this week for cardiac stress test him for further evaluation. Patient will continue with aspirin 81 mg daily. Patient with diabetes, hypertension, obstructive sleep apnea, chronic pain, hypothyroidism. Patient will continue with his medications. Patient may have underlying GERD. Patient will be started on Pepcid 20 mg daily. Patient may benefit with GI evaluation as an outpatient. Vital Signs/Physical Exam: Temp Pulse Resp BP Pulse Ox 98.6 F 68 16 151/73 H 97 07/13/18 08:00 07/13/18 10:15 07/13/18 08:00 07/13/18 10:15 07/13/18 08:00 General: Alert, In no apparent distress, Oriented x3, Cooperative HEENT: Atraumatic Neck: Supple Respiratory: Clear to auscultation bilaterally, Normal air movement Cardiovascular: Normal pulses, Regular rate/rhythm Gastrointestinal: Normal bowel sounds, Soft and benign, Non-distended, No tenderness, No masses, No rebound, No guarding Musculoskeletal: No erythema, No tenderness, No warmth Integumentary: No tenderness/swelling, No erythema, No warmth, No cyanosis Neurological: Normal speech, Normal strength at 5/5 x4 extr, Normal tone, Normal affect Laboratory Data at Discharge: WBC 9.3 K/uL (4.3-10.9) 07/13/18 01:20 Hgb 15.4 g/dL (13.6-17.9) 07/13/18 01:20 Hct 44.2 % (39.6-49.0) 07/13/18 01:20 Plt Count 187 K/uL (152-406) 07/13/18 01:20 PT 11.9 SECONDS (9.5-12.5) 07/13/18 01:20 INR 1.01 07/13/18 01:20 Sodium 141 mmol/L (136-145) 07/13/18 01:20 Potassium 3.3 mmol/L (3.5-5.1) L 07/13/18 01:20 BUN 21 mg/dL (7-18) H 07/13/18 01:20 Creatinine 1.18 mg/dL (0.55-1.3) 07/13/18 01:20 Glucose 167 mg/dL (74-106) H 07/13/18 01:20 Magnesium 2.0 mg/dL (1.8-2.4) 07/13/18 01:20 Total Bilirubin 0.5 mg/dL (0.2-1.0) 07/13/18 01:20 AST 20 U/L (15-37) 07/13/18 01:20 ALT 29 U/L (12-78) 07/13/18 01:20 Alkaline Phosphatase 122 U/L (45-117) H 07/13/18 01:20 Troponin I < 0.02 ng/mL (0.0-0.045) 07/13/18 06:00 Triglycerides 79 mg/dL (<150) 07/13/18 06:00 Cholesterol 102 mg/dL (<200) 07/13/18 06:00 HDL Cholesterol 39 mg/dL (40-60) L 07/13/18 06:00 Cholesterol/HDL Ratio 2.62 07/13/18 06:00 Home Medications: Hydroxychloroquine [Plaquenil*] 200 mg PO BID 11/08/12 Ascorbic Acid [Vitamin C] 500 mg PO DAILY 04/02/14 Cholecalciferol (Vitamin D3) [Vitamin D] 1,000 unit PO BEDTIME 04/02/14 Gabapentin [Neurontin*] 400 mg PO BID 04/02/14 Glucosamine HCl/Chondr Wong A Na [Osteo Bi-Flex Caplet] 1 tab PO BEDTIME 04/02/14 Loratadine [Claritin*] 10 mg PO DAILY 04/02/14 Atenolol [Tenormin*] 50 mg PO BID 05/21/18 Levothyroxine [Synthroid*] 75 mcg PO [id number] 05/21/18 Losartan/Hydrochlorothiazide [Losartan-Hctz 100-25 mg Tab] 1 each PO DAILY AFTER SUPPER 05/21/18 Potassium Chloride 10 meq PO DAILY 05/21/18 Risperidone [Risperdal] 2 mg PO BEDTIME 05/21/18 Simvastatin 10 mg PO BEDTIME 05/21/18 Zinc 1 tab PO BID 05/21/18 Aspirin [Aspirin EC 81 MG] 81 mg PO DAILY #90 tablet. 07/13/18 Cyanocobalamin [Vitamin B-12*] 1,000 mcg PO DAILY 07/13/18 Famotidine [Pepcid AC] 20 mg PO BID #60 tablet 07/13/18 Nifedipine [Nifedipine ER] 30 mg PO DAILY 07/13/18 Pyridoxine HCl [Vitamin B-6] 100 mg PO DAILY 07/13/18 Selenium 200 mcg PO BEDTIME 07/13/18 Thiamine HCl [Vitamin B-1*] 100 mg PO DAILY 07/13/18 New Medications: Aspirin [Aspirin EC 81 MG] 81 mg PO DAILY #90 tablet. Famotidine [Pepcid AC] 20 mg PO BID #60 tablet Patient Discharge Instructions: 1. Patient will need to follow up with his PCP within 1 week. 2. Patient admitted for chest pain. Cardiac enzymes unremarkable. Cardiology recommends no intervention at this time. Patient may follow up with cardiology later this week for cardiac stress test him for further evaluation. Patient will continue with aspirin 81 mg daily. 3. Patient with diabetes, hypertension, obstructive sleep apnea, chronic pain, hypothyroidism. Patient will continue with his medications. 4. Patient may have underlying GERD. Patient will be started on Pepcid 20 mg daily. Patient may benefit with GI evaluation as an outpatient. Diet: AHA Activity: Ad adwoa Time spent managing pt's care (in minutes): 55
[2018-07-13 12:12] VITALS: BP 144/76
[2018-07-13 13:08] VITALS: TEMP 98.8
[2018-07-13] MEDS ORDERED: hydroCHLOROthiazide 25 MG TAB PO SCH (17:30)
[2018-07-13] MEDS ORDERED: LOSARTAN POTASSIUM 50 MG TABLET PO SCH (17:30)
[2018-07-13] MEDS ORDERED: HOME MED 1 EA UNK (Simvastatin [Simvastatin] 10 MG) PO SCH (21:00)
[2018-07-13] MEDS ORDERED: CHONDR SU A NA PO SCH (21:00)
[2018-07-13] MEDS ORDERED: VITAMIN D 1000 UNIT TAB PO SCH (21:00)
[2018-07-13] MEDS ORDERED: DOCUSATE NA/SENNA CONC 1 TAB PO SCH (21:00)
[2018-07-13] MEDS ORDERED: RISPERIDONE 1 MG TABLET PO SCH (21:00)
[2018-07-13] MEDS ORDERED: GLUCOSAMINE HCL PO SCH (21:00)
[2018-07-13] MEDS ORDERED: SELENIUM 200 MCG PO SCH (21:00)
[2018-07-14] MEDS ORDERED: LEVOTHYROXINE SOD 0.075 MG TAB PO SCH (06:00)
--- NOTE | 2018-07-14 07:08 | CON ---
Date of Consultation: 07/13/[address] Amezquita' service on 07/13/2018. I saw the patient on 07/13/2018. Reason For Consultation: Chest pain. History Of Present Illness: Mr. Hoyt is a 63-year-old [place]-Kitt[place] male without any previous car diac history. He has a history of hypertension, diabetes, dyslipidemia, anxiety, and neuropathy. He normally sees Dr. Angel. He was in the hospital in May 2018 and had an incision and drainage of an abscess on his back by Dr. Astorga and has done well. He comes in with sharp stabbing chest pain that lasts seconds, unrelated to exertion, food, body position, or time of the day. Denies any palpitation. Denies any PND, orthopnea, pedal edema. He denied any syncope. By the time I saw him, he already had a negative cardiac workup as far as EKGs, x-rays, CPKs, troponin, and MBs. His potas sium was 3.3 and glucose was 167. Allergies: HE IS ALLERGIC TO SULFA AND STEROIDS. Review of Systems: Negative. Social History: Negative. Family History: Positive for diabetes and hypertension and coronary artery disease. Medications: At home include Zocor, Tenormin, nifedipine, Neurontin, Hyzaar, Plaquenil, potassium, a nd Synthroid. Physical Examination: General: Mr. Hoyt was slightly anxious, but no acute distress. Vital Signs: Stable. He was afebrile. HEENT: Negative. Neck: Supple without any bruit. Chest: Clear. Cardiac: Exam revealed a regular rhythm and rate without any murmurs, gallops, or rubs. Abdomen: Benign. Extremities: Revealed no clubbing, cyanosis, or edema. Diagnostic Data: Unremarkable except for the potassium and the glucose. Impression And Plan: 1.Atypical chest pain, most likely pleuritic or musculoskeletal. 2.History of hypertension. 3.History of dyslipidemia. 4.Anxiety. 5.Neuropathy. 6.Status post abscess incision and drainage recently. 7.Degenerative joint disease, on Plaquenil. 8.Hypothyroidism, on Synthroid. 9.Hypokalemia, that is being corrected. I am very comfortable with Mr. Hoyt going home and have an outpatient followup with me and with Dr. Alfred in [place]. He had a stress test approximately 3 years ago, which was normal. He had an ech ocardiogram as well in the past that was normal. I think we doing another stress test as an outpatie nt may be reasonable. He will call my office to schedule an appointment. KAVITHA Voice ID: [id number] Report ID: [id number]
== END 2018-07-13 13:45 | disposition home or self-care (01) ==
LOC: ER 00:49 → ERHOLD 04:15 → 4TH 05:03
PROVIDERS: ADMIT Internal Medicine; ATTEND Internal Medicine
DX: R07.9 Chest pain, unspecified (principal); I10 Essential (primary) hypertension; E11.9 Type 2 diabetes mellitus without complications; G47.33 Obstructive sleep apnea (adult) (pediatric); G89.29 Other chronic pain; F41.8 Other specified anxiety disorders; E66.9 Obesity, unspecified; Z68.41 Body mass index [BMI] 40.0-44.9, adult; E03.9 Hypothyroidism, unspecified; Z88.2 Allergy status to sulfonamides
CPT/HCPCS: 36415; 71045; 80048; 80061; 80076; 82962 ×2; 83036; 83735; 83880; 84439; 84443; 84484 ×2; 85025; 85610; 93005 ×2; 96360; 96361; 99285; G0378 ×2; J1650; J7030

== ENCOUNTER 2018-07-14 07:32 | Emergency (ER) | payer OTHER ==
--- OUTSIDE RECORDS SUMMARY | 2018-07-14 07:34 | XMS REPORT | Clinical Summary ---
:1955 Author Organization [facility] Address [address] [place] [address] Care Team Providers Name Role Phone Jose [...] INFLUENZA VACCINE 01/16/2018 Results Not on fileafter 07/13/2017 Insurance Payer Benefit Plan / Group Subscriber ID Type Phone Address AETNA MEDICARE AETNA MEDICARE HMO/PPO [facility] xxxxxxxx HMO [phone] [id number] (Work) Advance Directives Patient has advance care planning documents, and code status on file. For more information, please contact:Andi Jama[address] [place] [address] Code Status Date Activated Date Inactivated Comments Full Code 02/29/2016 10:08 AM 03/07/2016 6:11 PM Code Status decision reached by: Patient
[2018-07-14] MEDS ORDERED: LIDOCAINE VISCOUS 2% SOLN 15 ML UDC ONE (08:13)
[2018-07-14] MEDS ORDERED: MAGNE/ALUM HYDROXD 30 ML UCUP ONE (08:13)
[2018-07-14 08:31] LABS: Absolute Lymphocytes (CBC) 1.6 K/uL (0.7-4.9); Absolute Monocytes 0.6 K/uL (0.1-1.3); Absolute Neutrophil 6.1 K/uL (1.8-8.0); Basophils % 0.5 % (0-1.3); Eosinophils % 1.7 % (0-4.4); Hematocrit 45.2 % (39.6-49.0); Lymphocytes % 18.5 % (15.3-44.8); MPV 8.3 fL (7.6-11.3); Monocytes % 6.7 % (3.3-12.3); RBC Red Blood Cell Count 5.16 M/uL (4.33-5.43)
[2018-07-14 08:46] LABS: BUN Blood Urea Nitrogen 16 mg/dL (7-18); Bicarbonate 28 mmol/L (21-32); Glucose Level 110 mg/dL (74-106); NT PRO-BNP 170 pg/mL (<125); Potassium 3.3 mmol/L (3.5-5.1); Sodium Level 142 mmol/L (136-145); Troponin (Emerg Dept Use Only) < 0.02 ng/mL (0.0-0.045)
--- NOTE | 2018-07-14 09:20 | ER ---
Nurse's Notes [facility] Name: Jose Hoyt Age: 63 yrs Sex: Male : 1955 Arrival Date: 07/14/2018 Time: 07:33 Bed 20 Private MD: David Alfred Diagnosis: Chest pain, unspecified Presentation: 07/14 07:47 Presenting complaint: Patient states: chest pain that started on Sunday, described as em sharp pressure, mild SOB, denies N/V, was admitted to the hospital on Sunday and cleared by cardiology and discharged yesterday, reports only EKG and labs were done. Transition of care: patient was not received from another setting of care. Onset of symptoms was July 12, 2018. Risk Assessment: Do you want to hurt yourself or someone else? Patient reports no desire to harm self or others. Initial Sepsis Screen: Does the patient meet any 2 criteria? No. Patient's initial sepsis screen is negative. Does the patient have a suspected source of infection? No. Patient's initial sepsis screen is negative. Care prior to arrival: None. 07:47 Method Of Arrival: Wheelchair em 07:49 Acuity: SANDY 3 hb Triage Assessment: 07:52 General: Appears in no apparent distress. comfortable, Behavior is calm, cooperative. em Pain: Complains of pain in mid-sternal area. Cardiovascular: Reports chest pain, shortness of breath, Denies diaphoresis, nausea, syncope, vomiting, Patient's skin is warm and dry. Rhythm is sinus bradycardia. Historical: - Allergies: 07:52 steroids; em 07:52 Sulfa (Sulfonamide Antibiotics); em - Home Meds: 07:52 aspirin 81 mg Oral TbEC 1 tab once daily [Active]; blood pressure medicaiton unknown em [Active]; gabapentin 400 mg Oral cap 1 cap 3 times per day [Active]; hydroxychloroquine 200 mg Oral tab 1 tab once daily [Active]; losartan-hydrochlorothiazide 100-25 mg Oral tab 1 tab once daily [Active]; metformin 500 mg Oral Tb24 1 tab once daily [Active]; metoprolol tartrate 50 mg Oral tab 1 tab 2 times per day [Active]; triamterene-hydrochlorothiazid 37.5-25 mg Oral cap 1 cap once daily [Active]; Vitamin B-6 100 mg Oral tab [Active]; Vitamin C 1,000 mg Oral tab [Active]; Vitamin D Oral 1000 unit daily [Active]; - PMHx: 07:52 Anxiety; Hypertension; neuropathy; em - Immunization history:: Last tetanus immunization: up to date Flu vaccine is not up to date. - Social history:: Smoking status: Patient/guardian denies using tobacco. - Family history:: not pertinent. - Ebola Screening: : Patient negative for fever greater than or equal to 101.5 degrees Fahrenheit, and additional compatible Ebola Virus Disease symptoms Patient denies exposure to infectious person Patient denies travel to an Ebola-affected area in the 21 days before illness onset No symptoms or risks identified at this time. - Hospitalizations: : No recent hospitalization is reported. Screenin:49 Abuse screen: Denies threats or abuse. Denies injuries from another. Nutritional hb screening: No deficits noted. Tuberculosis screening: No symptoms or risk factors identified. Fall Risk None identified. Assessment: 07:44 General: Appears in no apparent distress. comfortable, Behavior is calm, cooperative. em General: Denies fever. Pain: Complains of pain in mid-sternal area Pain does not radiate. Pain currently is 5 out of 10 on a pain scale. Quality of pain is described as pressure, sharp, Pain began 2-3 days ago. Is continuous. Neuro: Level of Consciousness is awake, alert, obeys commands, Oriented to person, place, time, situation. Cardiovascular: Reports chest pain, shortness of breath, Denies diaphoresis, nausea, vomiting, Heart tones S1 S2 present Capillary refill < 3 seconds Patient's skin is warm and dry. Rhythm is sinus bradycardia. Respiratory: Reports shortness of breath pain with respiration Airway is patent Respiratory effort is even, unlabored, Respiratory pattern is regular, symmetrical, Breath sounds are clear bilaterally. Denies cough, pain with cough. GI: Abdomen is obese, Patient currently denies nausea, vomiting. Derm: Skin is intact, is healthy with good turgor, Skin is pink, warm \T\ dry. Musculoskeletal: Range of motion: intact in all extremities. 08:00 Reassessment: I agree with previous assessment. hb 08:37 Reassessment: Patient appears in no apparent distress at this time. Patient and/or em family updated on plan of care and expected duration. Pain level reassessed. Patient is alert, oriented x 3, equal unlabored respirations, skin warm/dry/pink. rates pain 3/10, substernal area, provider notified Patient states feeling better. Vital Signs: 07:52 BP 119 / 55; Pulse 57; Resp 18; Temp 98.2; Pulse Ox 100% on R/A; Weight 115.21 kg; em Height 5 ft. 4 in. (162.56 cm); Pain 5/10; 08:26 BP 129 / 63; Pulse 52; Resp 15; Pulse Ox 99% on R/A; em 07:52 Body Mass Index 43.60 (115.21 kg, 162.56 cm) em ED Course: 07:33 Patient arrived in ED. mr 07:33 David Alfred is Private Physician. mr 07:37 Jose Lopez MD is Attending Physician. rn 07:42 Cristobal Ruiz LVN is Primary Nurse. em 07:49 Triage completed. hb 07:49 Arm band placed on. hb 07:52 Patient has correct armband on for positive identification. Bed in low position. Call em light in reach. Adult w/ patient. gambling monitor on. Pulse ox on. NIBP on. 08:01 EKG done, by ED staff, reviewed by Jose Lopez MD. Patient maintains SpO2 saturation em greater than 95% on room air. 08:04 X-ray completed. Portable x-ray completed in exam room. Patient tolerated procedure la2 well. 08:05 XRAY Chest (1 view) In Process Unspecified. EDMS 08:07 Initial lab(s) drawn, by me, sent to lab. Inserted saline lock: 20 gauge in right em antecubital area, using aseptic technique. Blood collected. 09:40 No provider procedures requiring assistance completed. IV discontinued, intact, em bleeding controlled, No redness/swelling at site. Pressure dressing applied. Administered Medications: 08:08 Drug: GI Cocktail without - (Maalox Suspension 30 ml, Lidocaine Liquid 2 % 15 em ml) Route: PO; 08:27 Follow up: Response: No adverse reaction; Pain is unchanged, physician notified em Outcome: 09:19 Discharge ordered by MD. rn 09:41 Discharged to home ambulatory, with family. em 09:41 Condition: good 09:41 Discharge instructions given to patient, family, Instructed on discharge instructions, follow up and referral plans. Demonstrated understanding of instructions, follow-up care. 09:41 Patient left the ED. em Signatures: Dispatcher [employer] EDLuci Cervantes mr Joseph, Cristobal, PIPE OR STEAM FITTER FURNACE INSTALLER PIPE OR STEAM FITTER FURNACE INSTALLER em Jose Lopez MD MD rn Baxter, Heather, RN RN hb Ardoin, Leslie la2 Corrections: (The following items were deleted from the chart) 08:15 07:47 Presenting complaint: Patient states: chest pain that started on Sunday, em described as sharp pressure, + mild SOB, denies N/V, was admitted to the hospital on Sunday and cleared by cardiology and discharged yesterday, reports only EKG and labs were done em
--- NOTE | 2018-07-14 09:21 | EDPHYS ---
Physician Documentation [facility] Name: Jose Hoyt Age: 63 yrs Sex: Male : 1955 Arrival Date: 07/14/2018 Time: 07:33 Bed 20 Private MD: David Alfred ED Physician Jose Lopez HPI: 07/14 07:47 This 63 yrs old Male presents to ER via Unassigned with complaints of Chest rn Pain. 07:47 The patient or guardian reports chest pain that is located primarily in the substernal rn area. Onset: 3 day(s) ago. The pain does not radiate. Associated signs and symptoms: Pertinent positives: shortness of breath, Pertinent negatives: abdominal pain, cough, diaphoresis, lower extremity swelling, lightheadedness, nausea, near syncope, palpitations, recent travel, syncope, vomiting. The chest pain is described as sharp, stabbing. Duration: The patient or guardian reports multiple episodes, that are intermittent, the episodes last approximately 20 minute(s). Modifying factors: The symptoms are alleviated by nothing. the symptoms are aggravated by deep breath. Severity of pain: At its worst the pain was moderate in the emergency department the pain has improved. The patient has experienced similar episodes in the past. Reports just admitted to hospital, discharged yesterday, no stress test done, states attempted stress test years ago but could not complete treadmill test. Reports intermittent chest pain, substernal, sharp, non-radiating, worse with inspiration. Told ecg and bloodwork normal, sent home to f/u with pcp. . Historical: - Allergies: 07:52 steroids; em 07:52 Sulfa (Sulfonamide Antibiotics); em - Home Meds: 07:52 aspirin 81 mg Oral TbEC 1 tab once daily [Active]; blood pressure medicaiton unknown em [Active]; gabapentin 400 mg Oral cap 1 cap 3 times per day [Active]; hydroxychloroquine 200 mg Oral tab 1 tab once daily [Active]; losartan-hydrochlorothiazide 100-25 mg Oral tab 1 tab once daily [Active]; metformin 500 mg Oral Tb24 1 tab once daily [Active]; metoprolol tartrate 50 mg Oral tab 1 tab 2 times per day [Active]; triamterene-hydrochlorothiazid 37.5-25 mg Oral cap 1 cap once daily [Active]; Vitamin B-6 100 mg Oral tab [Active]; Vitamin C 1,000 mg Oral tab [Active]; Vitamin D Oral 1000 unit daily [Active]; - PMHx: 07:52 Anxiety; Hypertension; neuropathy; em - Immunization history:: Last tetanus immunization: up to date Flu vaccine is not up to date. - Social history:: Smoking status: Patient/guardian denies using tobacco. - Family history:: not pertinent. - Ebola Screening: : Patient negative for fever greater than or equal to 101.5 degrees Fahrenheit, and additional compatible Ebola Virus Disease symptoms Patient denies exposure to infectious person Patient denies travel to an Ebola-affected area in the 21 days before illness onset No symptoms or risks identified at this time. - Hospitalizations: : No recent hospitalization is reported. ROS: 07:47 Constitutional: Negative for fever, chills, and weight loss, Eyes: Negative for injury, rn pain, redness, and discharge, Neck: Negative for injury, pain, and swelling, Cardiovascular: Negative for palpitations, and edema, Respiratory: Negative for cough, wheezing Abdomen/GI: Negative for abdominal pain, nausea, vomiting, diarrhea, and constipation, MS/Extremity: Negative for injury and deformity, Skin: Negative for injury, rash, and discoloration, Neuro: Negative for headache, weakness, numbness, tingling, and seizure. Exam: 07:47 Constitutional: This is a well developed, well nourished patient who is awake, alert, rn and in no acute distress. Head/Face: Normocephalic, atraumatic. Eyes: Pupils equal round and reactive to light, extra-ocular motions intact. Lids and lashes normal. Conjunctiva and sclera are non-icteric and not injected. Cornea within normal limits. Periorbital areas with no swelling, redness, or edema. Cardiovascular: Regular rate and rhythm. No pulse deficits. Respiratory: Lungs have equal breath sounds bilaterally, clear to auscultation. No increased work of breathing, no retractions or nasal flaring. Abdomen/GI: Soft, non-tender Skin: Warm, dry with normal turgor. Normal color with no rashes, no lesions, and no evidence of cellulitis. MS/ Extremity: Pulses equal, no cyanosis. Neurovascular intact. Full, normal range of motion. Equal circumference. Neuro: Awake and alert, GCS 15, oriented to person, place, time, and situation. Cranial nerves II-XII grossly intact. Motor strength 5/5 in all extremities. Sensory grossly intact. Vital Signs: 07:52 BP 119 / 55; Pulse 57; Resp 18; Temp 98.2; Pulse Ox 100% on R/A; Weight 115.21 kg; em Height 5 ft. 4 in. (162.56 cm); Pain 5/10; 08:26 BP 129 / 63; Pulse 52; Resp 15; Pulse Ox 99% on R/A; em 07:52 Body Mass Index 43.60 (115.21 kg, 162.56 cm) em MDM: 07:37 Patient medically screened. rn 09:18 Differential diagnosis: acute myocardial infarction, acute pericarditis, anxiety, rn coronary artery disease costochondritis, esophagitis, gastritis, gastroesophageal reflux disease (GERD), pericarditis, pleurisy, pneumothorax, pulmonary embolus. Data reviewed: vital signs, nurses notes, lab test result(s), EKG, radiologic studies, plain films. Counseling: I had a detailed discussion with the patient and/or guardian regarding: the historical points, exam findings, and any diagnostic results supporting the discharge/admit diagnosis, lab results, radiology results, the need for outpatient follow up, to return to the emergency department if symptoms worsen or persist or if there are any questions or concerns that arise at home. Response to treatment: the patient's symptoms have mildly improved after treatment. Special discussion: Based on the patient's history, exam, and Dx evaluation, there is no indication for emergent intervention or inpatient Tx. It is understood by the patient/guardian that if the Sx's persist or worsen they need to return immediately for re-evaluation. ED course: Offered patient re-admission to hospital since stress test not done, patient wants to go home, will f/u with pcp/cardiology tomorrow, explained what to look for/return precautions and understands, will go home and f/u. . 09:20 ED course: Pt evaluated by cardiology and hospitalist service, told most likely GERD, rn given prescription for antacid that he hasn't filled, recommended antacid, aspirin, and cardiology f/u. Improved with GI cocktail here. . 07/14 07:46 Order name: Basic Metabolic Panel; Complete Time: 08:49 rn 07/14 07:46 Order name: CBC with Diff; Complete Time: 08:49 rn 07/14 07:46 Order name: NT PRO-BNP; Complete Time: 08:49 rn 07/14 07:46 Order name: Troponin (emerg Dept Use Only); Complete Time: 08:49 rn 07/14 07:46 Order name: XRAY Chest (1 view) rn 07/14 07:46 Order name: D-Dimer; Complete Time: 08:49 rn 07/14 07:46 Order name: EKG; Complete Time: 07:47 rn 07/14 07:46 Order name: Cardiac monitoring; Complete Time: 08:01 rn 07/14 07:46 Order name: EKG - Nurse/Tech; Complete Time: 08: rn 07/14 07:46 Order name: IV Saline Lock; Complete Time: 08: rn 07/14 07:46 Order name: Labs collected and sent; Complete Time: 08:01 rn 07/14 07:46 Order name: O2 Per Protocol; Complete Time: 08: rn 07/14 07:46 Order name: O2 Sat Monitoring; Complete Time: 08:01 rn Administered Medications: 08:08 Drug: GI Cocktail without - (Maalox Suspension 30 ml, Lidocaine Liquid 2 % 15 em ml) Route: PO; 08:27 Follow up: Response: No adverse reaction; Pain is unchanged, physician notified em Disposition: 07/14/18 09:19 Discharged to Home. Impression: Chest pain, unspecified. - Condition is Stable. - Discharge Instructions: Nonspecific Chest Pain. - Medication Reconciliation Form, Thank You Letter, Antibiotic Education, Prescription Opioid Use form. - Follow up: Private Physician; When: As needed; Reason: Recheck today's complaints, Re-evaluation by your physician. - Problem is new. - Symptoms have improved. Signatures: Dispatcher [employer] EDMS Cristobal Ruiz, CENTRAL STERILE TECH CENTRAL STERILE TECH em Jose Lopez MD MD rn lactation consultant: (The following items were deleted from the chart) 07:50 07:47 Constitutional: Negative for fever, chills, and weight loss, Eyes: Negative for rn injury, pain, redness, and discharge, Neck: Negative for injury, pain, and swelling, Cardiovascular: Negative for palpitations, and edema, Respiratory: Negative for shortness of breath, cough, wheezing Abdomen/GI: Negative for abdominal pain, nausea, vomiting, diarrhea, and constipation, MS/Extremity: Negative for injury and deformity, Skin: Negative for injury, rash, and discoloration, Neuro: Negative for headache, weakness, numbness, tingling, and seizure, rn 09:41 09:19 07/14/2018 09:19 Discharged to Home. Impression: Chest pain, unspecified. em Condition is Stable. Forms are Medication Reconciliation Form, Thank You Letter, Antibiotic Education, Prescription Opioid Use. Follow up: Private Physician; When: As needed; Reason: Recheck today's complaints, Re-evaluation by your physician. Problem is new. Symptoms have improved. rn
[2018-07-14 09:46] VITALS: TEMP 98.2
[2018-07-14 09:47] VITALS: BP 129/63; O2SAT 99
--- NOTE | 2018-07-14 11:02 | RAD REPORT ---
EXAM DESCRIPTION: [place] Single View07/14/2018 8:05 am CLINICAL HISTORY: Chest pain COMPARISON: July 13 FINDINGS: The lungs appear clear of acute infiltrate. The heart is normal size IMPRESSION: No acute abnormalities displayed
--- NOTE | 2018-07-15 07:58 | EKG ---
Test Date: 2018-07-14 Test Time: 07:56:39 Operating Systems Programmer: JAIMEE MEASUREMENT RESULTS: Intervals: Rate: 56 NV: 116 QRSD: 92 QT: 450 QTc: 434 [place]: P: 26 NV: 116 QRS: 26 T: 19 INTERPRETIVE STATEMENTS: Sinus bradycardia Otherwise normal ECG Compared to ECG 07/13/2018 09:05:35 Sinus rhythm no longer present Sinus arrhythmia no longer present T-wave abnormality no longer present Electronically Signed On 07-15-18 07:54:33 WRAPPING MACHINE TENDER by Lul Hernandez
--- NOTE | 2018-07-15 20:54 | EKG ---
Test Date: 2018-07-13 Test Time: 09:05:35 Sales Attendant: PÉREZ MEASUREMENT RESULTS: Intervals: Rate: 61 ND: 142 QRSD: 92 QT: 434 QTc: 436 [place]: P: 68 ND: 142 QRS: 87 T: 9 INTERPRETIVE STATEMENTS: Normal sinus rhythm with sinus arrhythmia Nonspecific T wave abnormality Abnormal ECG Compared to ECG 07/13/2018 09:03:49 No significant changes Electronically Signed On 07-15-18 20:48:35 FURNACE MECHANIC by Lul Hernandez
== END 2018-07-14 09:41 | disposition home or self-care (01) ==
LOC: ER 07:32
DX: R07.9 Chest pain, unspecified (principal); I10 Essential (primary) hypertension; F41.9 Anxiety disorder, unspecified; Z79.82 Long term (current) use of aspirin; Z88.2 Allergy status to sulfonamides; Z88.8 Allergy status to other drugs, medicaments and biological substances
CPT/HCPCS: 36415; 71045; 80048; 83880; 84484; 85025; 85379; 93005; 99285

== ENCOUNTER 2020-11-12 03:21 | Emergency (ER) | payer SELFPAY ==
--- OUTSIDE RECORDS SUMMARY | 2020-11-12 03:23 | XMS REPORT | Continuity of Care Document ---
:1955 [address] [facility] t Address 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 Family History Family Member Diagnosis Comments Start Date Stop Date Source Natural mother Diabetes [facility] Natural sister Diabetes [facility] Social History Social Habit Start Date Stop Date Quantity Comments Source Alcohol intake 2016-02-28 2016-02-28 Current drinker of Mamadou Jama 00:00:00 00:00:00 alcohol (finding) Alcohol Comment 2016-02-24 2016-02-24 occasional [place] ethodist 00:00:00 00:00:00 Sex Ass[birth year] [facility] ethodist 00:00:00 00:00:00 Smoking Status Start Date Stop Date Source Never smoker [place] [facility] t Medications Ordered Filled Start Stop Current Ordering Indication Dosage Frequency Signature Comments Components Source Medication Medication Date Date Medication? Clinician (SIG) Name Name METOPROLOL Yes Take by [place] SUCCINATE 9-20 mouth. [facility] ORAL 16:11: st 26 ASPIRIN Yes Take by Andi ORAL 9-20 mouth. Methodi 16:11: st 26 gabapentin Yes 400mg Q.5D Take 400 [place] (NEURONTIN) 6-23 mg by Methodi 400 MG 00:00: mouth 2 st capsule 00 (two) times a day. Procedures This patient has no known procedures. Plan of Care Planned Activity Planned Date Details Comments Source Future Scheduled 2021-01-16 INFLUENZA VACCINE Ariane kinney Confucianist Test 00:00:00 [code = INFLUENZA VACCINE] Future Scheduled 2018 65+ PNEUMOCOCCAL Andi Confucianist Test 00:00:00 VACCINE (1 of 1 - PPSV23) [code = 65+ PNEUMOCOCCAL VACCINE (1 of 1 - PPSV23)] Future Scheduled 2003 COLONOSCOPY SCREENING Ho cassia Confucianist Test 00:00:00 [code = COLONOSCOPY SCREENING] Future Scheduled 2003 SHINGLES VACCINES (#1) H santos Confucianist Test 00:00:00 [code = SHINGLES VACCINES (#1)] Future Scheduled 1965 COVID-19 VACCINE (1) Anafinn holder Confucianist Test 00:00:00 [code = COVID-19 VACCINE (1)] Encounters Start End Encounter Admission Attending Care Care Encounter Source Date/Time Date/Time Type Type Clinicians Facility Department ID 2020-05-21 2020-05-21 Hospital Radiology [facility] [id number] 12:15:00 23:59:00 Encounter [place] [id number] [place] [id number] [place] [id number] Results This patient has no known results.
--- NOTE | 2020-11-12 05:45 | ER ---
Nurse's Notes [facility] Name: Jose Hoyt Age: 65 yrs Sex: Male : 1955 Arrival Date: 11/12/2020 Time: 03:31 Bed 19 Private MD: Diagnosis: Presentation: 11/12 03:33 Chief complaint: Patient states: he woke up bleeding from his scrotum and he was really bb scarred and upset. Coronavirus screen: At this time, the client does not indicate any symptoms associated with coronavirus-19. Ebola Screen: No symptoms or risks identified at this time. Initial Sepsis Screen: Does the patient meet any 2 criteria? No. Patient's initial sepsis screen is negative. Does the patient have a suspected source of infection? No. Patient's initial sepsis screen is negative. Risk Assessment: Do you want to hurt yourself or someone else? Patient reports no desire to harm self or others. Onset of symptoms was November 12, 2020. 03:33 Method Of Arrival: Ambulatory 03:33 Acuity: SANDY 3 bb Historical: - Allergies: 03:35 steroids; bb 03:35 Sulfa (Sulfonamide Antibiotics); bb - Immunization history:: Adult Immunizations up to date. - Social history:: Smoking status: Patient denies any tobacco usage or history of. Patient/guardian denies using alcohol, street drugs. Screenin:39 Abuse screen: Denies threats or abuse. Denies injuries from another. Nutritional ad5 screening: No deficits noted. Tuberculosis screening: No symptoms or risk factors identified. Fall Risk None identified. Assessment: 04:06 General: Appears in no apparent distress. Behavior is cooperative, appropriate for age, ad5 anxious. Pain: Denies pain. Neuro: No deficits noted. Level of Consciousness is awake, alert, obeys commands, Oriented to person, place, time, situation, Appropriate for age Family Physician are equal bilaterally Moves all extremities. Gait is steady, Speech is normal, Intact. Cardiovascular: No deficits noted. Denies chest pain, palpitations, shortness of breath, Heart tones present Capillary refill < 3 seconds JVD is absent Patient's skin is warm and dry. Pulses are all present. Rhythm is regular. Respiratory: No deficits noted. Airway is patent Trachea midline Respiratory effort is even, unlabored, Respiratory pattern is regular, symmetrical. GI: No deficits noted. Abdomen is round Bowel sounds present X 4 quads. GI: Reports Pt reports "dark red" blood from perineal area that began this pm. Pt denies injury. Last BM yesterday as "normal". Denies urinary s/s or other c/o. : No deficits noted. EENT: No deficits noted. Derm: No deficits noted. Musculoskeletal: No deficits noted. 05:00 Reassessment: Patient appears in no apparent distress at this time. No changes from ad5 previously documented assessment. Patient and/or family updated on plan of care and expected duration. Pain level reassessed. Patient is alert, oriented x 3, equal unlabored respirations, skin warm/dry/pink. 05:42 Reassessment: pt left the ED states "Two hours and I haven't seen a doctor". bb Vital Signs: 03:33 BP 157 / 105; Pulse 80; Resp 18 S; Temp 98.7(O); Pulse Ox 99% on R/A; Weight 110.22 kg bb (R); Height 5 ft. 3 in. (160.02 cm) (R); Pain 0/10; 05:00 BP 138 / 83; Pulse 76; Resp 17 S; Pulse Ox 98% on R/A; ad5 03:33 Body Mass Index 43.05 (110.22 kg, 160.02 cm) bb ED Course: 03:31 Patient arrived in ED. ad5 03:33 Stiven Fernandes is Primary Nurse. ad5 03:35 Triage completed. bb 03:35 Arm band placed on Patient placed in an exam room, on a stretcher, on pulse oximetry. bb 03:39 Patient has correct armband on for positive identification. Placed in gown. Bed in low ad5 position. Call light in reach. Side rails up X 1. patient monitor on. Pulse ox on. NIBP on. Door closed. Noise minimized. Warm blanket given. 04:02 Irving Guillen MD is Attending Physician. [facility] 05:45 No provider procedures requiring assistance completed. Patient did not have IV access ad5 during this emergency room visit. Administered Medications: No medications were administered Outcome: 05:44 Patient left the ED. bb 05:45 Eloped from patient exam room, before seeing physician Time discovered patient gone: ad5 November 12, 2020 at 05:45 05:45 Condition: stable Signatures: Jyothi Allen, RADHA RN bb Irving Guillen MD MD [id number] Stiven Fernandes ad5
[2020-11-12 05:49] VITALS: BP 157/105; TEMP 98.7; O2SAT 99
== END 2020-11-12 05:44 | disposition left against medical advice (07) ==
LOC: ER 03:21
DX: Z53.21 Procedure and treatment not carried out due to patient leaving prior to being seen by health care provider (principal)
CPT/HCPCS: 99284

== ENCOUNTER 2022-08-29 10:50 | Day surgery (SDC) | payer OTHER ==
[2022-08-17 16:28] LABS: Absolute Lymphocytes (CBC) 1.5 K/uL (0.7-4.9); Hematocrit 42.2 % (39.6-49.0); Lymphocytes % 16.8 % (15.3-44.8); MCV 87.1 fL (80-100); MPV 7.5 fL (7.6-11.3); RBC Red Blood Cell Count 4.85 M/uL (4.33-5.43)
[2022-08-17 16:30] LABS: Protime INR 1.02
[2022-08-17 16:42] LABS: Potassium 3.5 mmol/L (3.5-5.1)
--- NOTE | 2022-08-17 19:19 | RAD REPORT ---
EXAM DESCRIPTION: [facility] Pa And Lat (2 Views)08/17/2022 4:42 pm CLINICAL HISTORY: pre op pending circumcision COMPARISON: Chest Single View dated 07/14/2018; Chest Single View dated 07/13/2018; Chest Pa And Lat ( 2 Views) dated 05/21/2018; Chest Single View dated 05/30/2016 TECHNIQUE: PA and lateral views of the chest. FINDINGS: The lungs are clear.Mild hyperinflation. No pneumothorax or effusion. The cardiomediastina l contours are unremarkable. IMPRESSION: No acute cardiopulmonary process.
--- NOTE | 2022-08-18 14:31 | EKG ---
Test Date: 2022-08-17 Test Time: 15:51:41 Esl Instructional Assistant: ISIDORO MEASUREMENT RESULTS: Intervals: Rate: 59 AR: 128 QRSD: 86 QT: 406 QTc: 401 [place]: P: 31 AR: 128 QRS: 57 T: 15 INTERPRETIVE STATEMENTS: Sinus bradycardia Nonspecific T wave abnormality Abnormal ECG Compared to ECG 07/14/2018 07:56:39 T-wave abnormality now present Electronically Signed On 08-18-22 14:29:07 MEDICAL ASSISTING PROGRAM DIRECTOR by Gilbert Abrams
[2022-08-29] MEDS ORDERED: HYDRALAZINE HCL 20 MG/ML VIAL ONE (11:31)
[2022-08-29] MEDS ORDERED: Ringers Lactate 1,000 ML IV ONE (11:31)
[2022-08-29] MEDS ORDERED: propofoL 200 MG/20 ML VIAL IV ONE ×2 (12:31→15:19)
[2022-08-29] MEDS ORDERED: FENTANYL CITR 100 MCG/2 ML ONE (12:32)
[2022-08-29] MEDS ORDERED: MIDAZOLAM HCL 2 MG/2 ML INJ ONE ×2 (12:32→16:41)
[2022-08-29] MEDS ORDERED: LIDOCAINE 2% MPF 5 ML VIAL ONE (12:32)
[2022-08-29] MEDS ORDERED: BUPIVACAINE 0.25% PF 10 ML VIAL ONE ×2 (13:09→14:32)
[2022-08-29] MEDS: CEFAZOLIN SODIUM 2 GM/VIAL ONE ×3 (14:32→15:00)
[2022-08-29] MEDS ORDERED: LIDOCAINE 1% MPF 30 ML VIAL ONE (14:40)
[2022-08-29] MEDS: BUPIVACAINE 0.25% PF 30 ML VIAL ONE ×2 (14:56→15:00)
[2022-08-29] MEDS: LIDOCAINE 1% MPF 30 ML VIAL ONE ×2 (14:56→15:00)
[2022-08-29] MEDS: BACITRACIN OINTMENT 14 GM TUBE TOP ONE ×2 (15:14→15:43)
[2022-08-29] MEDS: LABETALOL 20 MG/4ML SYRINGE IV ONE ×2 (16:03→16:23)
[2022-08-29] MEDS ORDERED: CODEINE 30MG/APAP 300MG TAB PO PRN (16:09)
[2022-08-29] MEDS: MORPHINE 4 MG/ML SYR ONE ×2 (16:16→16:21)
[2022-08-29 16:56] VITALS: BP 170/59; TEMP 97.8; O2SAT 95
--- NOTE | 2022-08-29 19:58 | OP ---
Surgeon: THOR GUAJARDO Preoperative Diagnoses: 1.Paraphimosis. 2.History of recent syncope. Postoperative Diagnoses: 1.Paraphimosis. 2.History of recent syncope. Principal Procedures: 1.Sleeve circumcision. 2.Penile and frenular block anesthetic. Indication For Procedure: Mr. Hoyt presented to the Urology Clinic with complaints of the foreskin being too tight when he has an erection consistent with paraphimosis and the findings of a paraphimo tic band on exam. He wished to have the circumcision completed noting this had previously been attem pted by another urologist without success. Of note, he had a recent syncopal episode within the last 2 weeks, but unfortunately did not seek evaluation medically after that episode occurred, which resu lted in him falling and injuring himself. As a result, he was not a candidate for any significant an esthesia, general or otherwise. We thus agreed that if the case could be completed with a successful penile block and some light sedation, we would proceed this way. Procedure In Detail: The patient was consented in the preoperative holding area before being transfe rred to the operative suite where he was given a touch of sedation. His genitalia were shaved, prepp ed with Betadine and draped in standard fashion. I then employed a penile block using a 1:1 mixture of 0.25% Marcaine and 1% lidocaine. I used a 25-gauge needle to perform a subcutaneous injection in the infrapubic midline. I then utilized an 18-gauge needle inserted via the midline infrapubically a nd injected approximately 20 cc of the 1:1 mixture of Marcaine and lidocaine. I then injected an add itional 10 cc in the region of the neurovascular bundles on both the left and the right side. The re maining approximately 3 cc was then injected in the frenular region at the junction of the scrotal an d the penile median raphae to complete the block. Once this was performed, he was then completely dr aped, and a test of the block was performed using Adson forceps in the frenular region and also on th e glans penis, and he was completely anesthetized. As a result, the case continued with the patient just under mild sedation and still slightly communicative. I used a marking pen to haseeb an area with in the shaft skin at the junction of the garza of the glans and then retracted the foreskin and haseeb ed a preputial margin approximately 1 to 1.5 cm distal to the garza of the glans. The intervening s kin was then incised down through the dartos layers and then I incised the intervening skin in the do rsal midline before excising it from the Benedict's fascia using electrocautery. That skin was sent for pathologic analysis as foreskin. I then performed a careful search for bleeding and used Adson force ps to perform pinpoint cautery of all bleeding vessels. Once completely hemostatic, irrigation was a pplied and then additional hemostasis was achieved where necessary. I then placed quadrant sutures o f 3-0 chromic and reconstructed the tissue in the intervening regions with a running horizontal mattr ess. In the end, the cosmetic result was excellent, and I applied a Coban and a Margarita as a gentle pr essure dressing. Bacitracin was applied to the incision as well as to the glans before the Margarita and Coban were applied. He tolerated the procedure well and without any sense of pain or complication. He was then awakened and transferred to a stretcher before being transferred to the recovery room in good condition. Complications: None. Discharge Disposition: He should follow up in the Urology Clinic in about 3-4 weeks interval assessm ent. BERNADINE/NAVNEET Voice ID: [id number] Report ID: [id number]
== END 2022-08-29 17:37 | disposition home or self-care (01) ==
LOC: PRE 10:50 → OR 17:37
PROVIDERS: ATTEND Urology
PROC: 0VTTXZZ Resection of Prepuce, External Approach (ICD-10-PCS; principal; 2022-08-29 12:30)
DX: N47.2 Paraphimosis (principal)
CPT/HCPCS: 93005; 87088; 85025; 87086; 80048; 36415; 85610; 71046; 54150; J0360; J2704 ×2; J2001 ×2; J2250 ×2; J3010; J7120; 88304

== ENCOUNTER 2023-01-16 23:27 | Observation (INO) | payer OTHER ==
--- OUTSIDE RECORDS SUMMARY | 2023-01-16 23:32 | XMS REPORT | Continuity of Care Document ---
:1955 Author Organization [facility] t Address [address] [place] [address] [address] [place] [address] Care Team Providers Name Role Phone Jose Alfredo Prieto MD Primary Care Physician [phone] GUSTABO MARCH Attending Clinician Unavailable GUSTABO MARCH Attending Clinician Unavailable Nikunj Orozco RN Attending Clinician Unavailable Radiology Attending Clinician Unavailable RADIOLOGY Attending Clinician Unavailable GUSTABO MARCH Admitting Clinician Unavailable GUSTABO MARCH Admitting Clinician Unavailable Payers Payer Name Policy Type Policy Number Effective Date Expiration Date S ource AET[employer] MEDICARE [id number] 2021 [place] [facility] [place] AETNA MEDICARE 53 [id number] [facility] P[facility] - [facility] Problems Condition Condition Condition Status Onset Resolution Last Treating Co mments Source Name Details Category Date Date Treatment Clinician Date 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 02-28 00:00: Hospita 00 l Sepsis Sepsis Disease Active Methodi 02-23 00:00: Hospita 00 l Diabetes Diabetes Disease Active Metho di mellitus mellitus 02-23 00:00: Hospita 00 l Essential Essential Disease Active Met hodi hypertensi hypertensi 02-23 on on 00:00: Hospita 00 l [id number] Phimosis Problem Comm on Spirit - [facility] [id number] Family Problem Common history of Spirit prostate - [facility] [id number] BPH loc w Problem Com mon urin Spirit obs/LUTS - [facility] Allergies, Adverse Reactions, Alerts Allergy Allergy Status Severity Reaction(s) Onset Inactive Treating Comm ents Source Name Type Date Date Clinician NO KNOWN Drug Active Univers ALLERGIE Class ity of [facility] Family History Family Member Diagnosis Comments Start Date Stop Date Source Natural mother Diabetes [facility] Natural sister Diabetes [facility] Social History Social Habit Start Date Stop Date Quantity Comments Source History of Tobacco [facility] - Use [facility] Sexual orientation Method ist [facility] Gender identity [facility] Exposure to 2022-04-15 2022-04-25 Not sure [facility] SARS-CoV-2 (event) 00:00:00 12:03:00 Tobacco use and 2021-08-23 2021-08-23 Smokeless tobacco [facility] exposure 00:00:00 00:00:00 non-user History of Social 2016-11-29 2016-11-[address] function 00:00:00 00:00:00 Hospital Alcohol intake 2016-02-28 2016-02-28 Current drinker [facility] 00:00:00 00:00:00 of alcohol Hospital (finding) Alcohol Comment 2016-02-24 2016-02-24 occasional [facility] 00:00:00 00:00:00 Hospital Sex Ass[birth year] At [birth year] [facility] 00:00:00 00:00:00 Hospital Smoking Status Start Date Stop Date Source Unknown if ever smoked [facility] Never Smoker [facility] Medications Ordered Filled Start Stop Current Ordering Indication Dosage Frequency Signature Comments Components Source Medication Medication Date Date Medication? Clinician (SIG) Name Name Flomax 0.4 Flomax 0.4 2022-0 2023- No 1{capsu QD Flomax 0.4 MG MG 1-25 08-23 le} MG 00:00: 00:00 00 :00 famotidine 2021-0 Yes Take by [facility] (Pepcid) 20 3-08 mouth. Health MG tablet 09:15: 25 famotidine 0 Yes Take by [facility] (Pepcid) 20 3-08 mouth. Health MG tablet 09:15: 25 famotidine 0 Yes Take by [facility] (Pepcid) 20 3-08 mouth. Health MG tablet 09:15: 25 famotidine Yes Take by [facility] (Pepcid) 20 3-08 mouth. Health MG tablet 09:15: 25 famotidine 0 Yes Take by UT (Pepcid) 20 3-08 mouth. Health MG tablet 09:15: 25 famotidine 0 Yes Take by UT (Pepcid) 20 3-08 mouth. Health MG tablet 09:15: 25 famotidine 0 Yes Take by [facility] (Pepcid) 20 3-08 mouth. Health MG tablet 09:15: 25 levothyroxi 2021-0 Yes levothyrox UT ne 3-08 ine 88 mcg Health (Synthroid, 09:14: tablet Levoxyl) 88 51 MCG tablet potassium 0 Yes Klor-Con UT chloride CR 3-08 10 mEq Health (KLOR-CON) 09:14: tablet,ext 10 MEQ ER 51 ended tablet release NIFEdipine 0 Yes nifedipine U T CC (Adalat 308 ER 30 mg Healt h CC) 30 MG 09:14: tablet,ext 24 hr 51 ended tablet release losartan 0 Yes losartan [facility] (Cozaar) 50 3-08 50 mg Health MG tablet 09:14: tablet 51 pantoprazol 0 Yes pantoprazo UT e 3-08 le 40 mg Health (ProtoNix) 09:14: tablet,del 40 MG EC 51 ayed tablet release simvastatin Yes simvastati UT (Zocor) 10 3-08 n 10 mg Health MG tablet 09:14: tablet 51 aspirin 2021-0 Yes Take by UT 162.5 MG 3-08 mouth. Health split 09:14: tablet 51 gabapentin 2021-0 Yes gabapentin U T (Neurontin) 3-08 400 mg Health 400 MG 09:14: capsule capsule 51 atenolol 2021-0 Yes atenolol UT (Tenormin) 3-08 25 mg Health 25 MG 09:14: tablet tablet 51 hydroxychlo 2021-0 Yes hydroxychl UT roquine 3-08 oroquine Health (Plaquenil) 09:14: 200 mg 200 MG 51 tablet tablet levothyroxi 2021-0 Yes levothyrox UT ne 3-08 ine 88 mcg Health (Synthroid, 09:14: tablet Levoxyl) 88 51 MCG tablet potassium 0 Yes Klor-Con UT chloride CR 3-08 10 mEq Health (KLOR-CON) 09:14: tablet,ext 10 MEQ ER 51 ended tablet release NIFEdipine 2021-0 Yes nifedipine U T CC (Adalat 3-08 ER 30 mg Healt h CC) 30 MG 09:14: tablet,ext 24 hr 51 ended tablet release losartan 2021-0 Yes losartan UT (Cozaar) 50 3-08 50 mg Health MG tablet 09:14: tablet 51 pantoprazol 2021-0 Yes pantoprazo UT e 3-08 le 40 mg Health (ProtoNix) 09:14: tablet,del 40 MG EC 51 ayed tablet release simvastatin 2021-0 Yes simvastati UT (Zocor) 10 3-08 n 10 mg Health MG tablet 09:14: tablet 51 aspirin 2021-0 Yes Take by UT 162.5 MG 3-08 mouth. Health split 09:14: tablet 51 gabapentin 2021-0 Yes gabapentin U T (Neurontin) 3-08 400 mg Health 400 MG 09:14: capsule capsule 51 atenolol 2021-0 Yes atenolol [facility] (Tenormin) 3-08 25 mg Health 25 MG 09:14: tablet tablet 51 hydroxychlo 2021-0 Yes hydroxychl UT roquine 3-08 oroquine Health (Plaquenil) 09:14: 200 mg 200 MG 51 tablet tablet levothyroxi 2021-0 Yes levothyrox UT ne 3-08 ine 88 mcg Health (Synthroid, 09:14: tablet Levoxyl) 88 51 MCG tablet potassium 2021-0 Yes Klor-Con UT chloride CR 3-08 10 mEq Health (KLOR-CON) 09:14: tablet,ext 10 MEQ ER 51 ended tablet release NIFEdipine 2021-0 Yes nifedipine U T CC (Adalat 3-08 ER 30 mg Healt h CC) 30 MG 09:14: tablet,ext 24 hr 51 ended tablet release losartan 2021-0 Yes losartan UT (Cozaar) 50 3-08 50 mg Health MG tablet 09:14: tablet 51 pantoprazol 2021-0 Yes pantoprazo UT e 3-08 le 40 mg Health (ProtoNix) 09:14: tablet,del 40 MG EC 51 ayed tablet release simvastatin 2021-0 Yes simvastati UT (Zocor) 10 3-08 n 10 mg Health MG tablet 09:14: tablet 51 aspirin 2021-0 Yes Take by UT 162.5 MG 3-08 mouth. Health split 09:14: tablet 51 gabapentin 2021-0 Yes gabapentin U T (Neurontin) 3-08 400 mg Health 400 MG 09:14: capsule capsule 51 atenolol 2021-0 Yes atenolol UT (Tenormin) 3-08 25 mg Health 25 MG 09:14: tablet tablet 51 hydroxychlo 2021-0 Yes hydroxychl UT roquine 3-08 oroquine Health (Plaquenil) 09:14: 200 mg 200 MG 51 tablet tablet levothyroxi 2021-0 Yes levothyrox UT ne 3-08 ine 88 mcg Health (Synthroid, 09:14: tablet Levoxyl) 88 51 MCG tablet potassium 2021-0 Yes Klor-Con UT chloride CR 3-08 10 mEq Health (KLOR-CON) 09:14: tablet,ext 10 MEQ ER 51 ended tablet release NIFEdipine 2-0 Yes nifedipine U T CC (Adalat 3-08 ER 30 mg Healt h CC) 30 MG 09:14: tablet,ext 24 hr 51 ended tablet release losartan 2-0 Yes losartan UT (Cozaar) 50 3-08 50 mg Health MG tablet 09:14: tablet 51 pantoprazol 2021-0 Yes pantoprazo UT e 3-08 le 40 mg Health (ProtoNix) 09:14: tablet,del 40 MG EC 51 ayed tablet release simvastatin 2022-0 Yes simvastati UT (Zocor) 10 3-08 n 10 mg Health MG tablet 09:14: tablet 51 aspirin 2021-0 Yes Take by UT 162.5 MG 3-08 mouth. Health split 09:14: tablet 51 gabapentin 2021-0 Yes gabapentin U T (Neurontin) 3-08 400 mg Health 400 MG 09:14: capsule capsule 51 atenolol 2021-0 Yes atenolol UT (Tenormin) 3-08 25 mg Health 25 MG 09:14: tablet tablet 51 hydroxychlo 2021-0 Yes hydroxychl UT roquine 3-08 oroquine Health (Plaquenil) 09:14: 200 mg 200 MG 51 tablet tablet levothyroxi 0 Yes levothyrox UT ne 3-08 ine 88 mcg Health (Synthroid, 09:14: tablet Levoxyl) 88 51 MCG tablet potassium Yes Klor-Con UT chloride CR 3-08 10 mEq Health (KLOR-CON) 09:14: tablet,ext 10 MEQ ER 51 ended tablet release NIFEdipine Yes nifedipine U T CC (Adalat 3-08 ER 30 mg Healt h CC) 30 MG 09:14: tablet,ext 24 hr 51 ended tablet release losartan 0 Yes losartan UT (Cozaar) 50 3-08 50 mg Health MG tablet 09:14: tablet 51 pantoprazol 0 Yes pantoprazo UT e 3-08 le 40 mg Health (ProtoNix) 09:14: tablet,del 40 MG EC 51 ayed tablet release simvastatin Yes simvastati UT (Zocor) 10 3-08 n 10 mg Health MG tablet 09:14: tablet 51 aspirin 2021-0 Yes Take by UT 162.5 MG 3-08 mouth. Health split 09:14: tablet 51 gabapentin 2021-0 Yes gabapentin U T (Neurontin) 3-08 400 mg Health 400 MG 09:14: capsule capsule 51 atenolol 2021-0 Yes atenolol UT (Tenormin) 3-08 25 mg Health 25 MG 09:14: tablet tablet 51 hydroxychlo 2021-0 Yes hydroxychl UT roquine 3-08 oroquine Health (Plaquenil) 09:14: 200 mg 200 MG 51 tablet tablet levothyroxi 2021-0 Yes levothyrox UT ne 3-08 ine 88 mcg Health (Synthroid, 09:14: tablet Levoxyl) 88 51 MCG tablet potassium 2021-0 Yes Klor-Con UT chloride CR 3-08 10 mEq Health (KLOR-CON) 09:14: tablet,ext 10 MEQ ER 51 ended tablet release NIFEdipine 2021-0 Yes nifedipine U T CC (Adalat 3-08 ER 30 mg Healt h CC) 30 MG 09:14: tablet,ext 24 hr 51 ended tablet release losartan 2021-0 Yes losartan UT (Cozaar) 50 3-08 50 mg Health MG tablet 09:14: tablet 51 pantoprazol 2021-0 Yes pantoprazo UT e 3-08 le 40 mg Health (ProtoNix) 09:14: tablet,del 40 MG EC 51 ayed tablet release simvastatin 0 Yes simvastati UT (Zocor) 10 3-08 n 10 mg Health MG tablet 09:14: tablet 51 aspirin 2021-0 Yes Take by UT 162.5 MG 3-08 mouth. Health split 09:14: tablet 51 gabapentin 2021-0 Yes gabapentin U T (Neurontin) 3-08 400 mg Health 400 MG 09:14: capsule capsule 51 atenolol 2021-0 Yes atenolol UT (Tenormin) 3-08 25 mg Health 25 MG 09:14: tablet tablet 51 hydroxychlo 2021-0 Yes hydroxychl UT roquine 3-08 oroquine Health (Plaquenil) 09:14: 200 mg 200 MG 51 tablet tablet levothyroxi 2021-0 Yes levothyrox UT ne 3-08 ine 88 mcg Health (Synthroid, 09:14: tablet Levoxyl) 88 51 MCG tablet potassium 2021-0 Yes Klor-Con UT chloride CR 3-08 10 mEq Health (KLOR-CON) 09:14: tablet,ext 10 MEQ ER 51 ended tablet release NIFEdipine 2021-0 Yes nifedipine U T CC (Adalat 3-08 ER 30 mg Healt h CC) 30 MG 09:14: tablet,ext 24 hr 51 ended tablet release losartan 2021-0 Yes losartan UT (Cozaar) 50 3-08 50 mg Health MG tablet 09:14: tablet 51 pantoprazol 2021-0 Yes pantoprazo UT e 3-08 le 40 mg Health (ProtoNix) 09:14: tablet,del 40 MG EC 51 ayed tablet release simvastatin Yes simvastati UT (Zocor) 10 3-08 n 10 mg Health MG tablet 09:14: tablet 51 aspirin 2021-0 Yes Take by UT 162.5 MG 3-08 mouth. Health split 09:14: tablet 51 gabapentin 0 Yes gabapentin U T (Neurontin) 3-08 400 mg Health 400 MG 09:14: capsule capsule 51 atenolol 0 Yes atenolol UT (Tenormin) 3-08 25 mg Health 25 MG 09:14: tablet tablet 51 hydroxychlo Yes hydroxychl UT roquine 3-08 oroquine Health (Plaquenil) 09:14: 200 mg 200 MG 51 tablet tablet METOPROLOL 2015-0 Yes Take by Meth enrique SUCCINATE 9-[address] ORAL 16:11: Hospita 26 l ASPIRIN 2016-0 Yes Take by Methodi ORAL 9-[address] 16:11: Hospita 26 l METOPROLOL 2016-0 Yes Take by Meth enrique SUCCINATE 9-[address] ORAL 16:11: Hospita 26 l ASPIRIN 2016-0 Yes Take by Methodi ORAL 9-[address] 16:11: Hospita 26 l METOPROLOL 2016-0 Yes Take by Meth enrique SUCCINATE 9-[address] ORAL 16:11: Hospita 26 l ASPIRIN 2016-0 Yes Take by Methodi ORAL 9-[address] 16:11: Hospita 26 l METOPROLOL 2016-0 Yes Take by Meth enrique SUCCINATE 9-[address] ORAL 16:11: Hospita 26 l ASPIRIN 2016-0 Yes Take by Methodi ORAL 9-[address] 16:11: Hospita 26 l METOPROLOL 2016-0 Yes Take by Meth enrique SUCCINATE 9-[address] ORAL 16:11: Hospita 26 l ASPIRIN 2016-0 Yes Take by Methodi ORAL 9-[address] 16:11: Hospita 26 l METOPROLOL 2016-0 Yes Take by Meth enrique SUCCINATE 9-[address] ORAL 16:11: Hospita 26 l ASPIRIN 2016-0 Yes Take by Methodi ORAL 9-[address] 16:11: Hospita 26 l METOPROLOL 2016-0 Yes Take by Meth enrique SUCCINATE 9-[address] ORAL 16:11: Hospita 26 l ASPIRIN 2016-0 Yes Take by Methodi ORAL 9-[address] 16:11: Hospita 26 l METOPROLOL 2016-0 Yes Take by Meth enrique SUCCINATE 9-[address] ORAL 16:11: Hospita 26 l ASPIRIN 2016-0 Yes Take by Methodi ORAL 9-[address] 16:11: Hospita 26 l METOPROLOL 2016-0 Yes Take by Meth enrique SUCCINATE 9-[address] ORAL 16:11: Hospita 26 l ASPIRIN 2016-0 Yes Take by Methodi ORAL 9-[address] 16:11: Hospita 26 l gabapentin 2016-0 Yes 400mg Q.5D Take 400 Me thodi (NEURONTIN) 6-[address] 400 MG 00:00: mouth 2 Hospita capsule 00 (two) l times a day. gabapentin 2016-0 Yes 400mg Q.5D Take 400 Me th[facility] (NEURONTIN) 6-[address] 400 MG 00:00: mouth 2 Hospita capsule 00 (two) l times a day. gabapentin 2016-0 Yes 400mg Q.5D Take 400 Me thodi (NEURONTIN) 6-[address] 400 MG 00:00: mouth 2 Hospita capsule 00 (two) l times a day. gabapentin 2016-0 Yes 400mg Q.5D Take 400 Me thodi (NEURONTIN) 6-[address] 400 MG 00:00: mouth 2 Hospita capsule 00 (two) l times a day. gabapentin 2016-0 Yes 400mg Q.5D Take 400 Me thodi (NEURONTIN) 6-[address] 400 MG 00:00: mouth 2 Hospita capsule 00 (two) l times a day. gabapentin 2016-0 Yes 400mg Q.5D Take 400 Me thodi (NEURONTIN) 6-[address] 400 MG 00:00: mouth 2 Hospita capsule 00 (two) l times a day. gabapentin 2016-0 Yes 400mg Q.5D Take 400 Me thodi (NEURONTIN) 6-[address] 400 MG 00:00: mouth 2 Hospita capsule 00 (two) l times a day. gabapentin 2016-0 Yes 400mg Q.5D Take 400 Me thodi (NEURONTIN) 6-[address] 400 MG 00:00: mouth 2 Hospita capsule 00 (two) l times a day. gabapentin 2016-0 Yes 400mg Q.5D Take 400 Me thodi (NEURONTIN) 6-[address] 400 MG 00:00: mouth 2 Hospita capsule 00 (two) l times a day. Vital Signs Vital Name Observation Time Observation Value Comments Source height 2022-07-12 15:30:00 64 [in_i] [facility] weight 2022-07-12 15:30:00 237.2 [lb_av] [facility] temperature 2022-07-12 15:30:00 98.6 [degF] [facility] bmi 2022-07-12 15:30:00 40.71 kg/m2 [facility] oximetry 2022-07-12 15:30:00 97 % [facility] respiratory rate 2022-07-12 15:30:00 18 /min [facility] blood pressure 2022-07-12 15:30:00 216 mm[Hg] [facility] - systolic [facility] blood pressure 2022-07-12 15:30:00 98 mm[Hg] [facility] diastolic [facility] Systolic blood 2022-04-25 18:59:00 191 mm[Hg] [facility] Diastolic blood 2022-04-25 18:59:00 105 mm[Hg] [facility] Heart rate 2022-04-25 18:59:00 98 /min [facility] Systolic blood 2022-04-11 19:37:00 186 mm[Hg] [facility] Diastolic blood 2022-04-11 19:37:00 97 mm[Hg] [facility] Heart rate 2022-04-11 19:37:00 86 /min [facility] Body temperature 2022-04-11 19:33:00 36.22 [facility] height 2022-04-11 19:33:00 160 cm [facility] Procedures Procedure Date / Time Performed Performing Clinician Sourc e XR CHEST 2 VW 2020-05-21 18:32:15 David [facility] Plan of Care Planned Activity Planned Date Details Comments Source Future Scheduled 2022-12-25 [facility] 22:34:02 malignant neoplasm of colon (procedure) [code = 998002028] Future Scheduled 2022-12-25 [facility] 22:34:02 malignant neoplasm of colon (procedure) [code = 352045638] Future Scheduled 2022-12-25 [facility] 22:34:02 malignant neoplasm of colon (procedure) [code = 066371321] Future Scheduled 2022-12-25 COVID-19 VACCINE (#1) [facility] Test 22:34:02 [code = COVID-19 VACCINE (#1)] Future Scheduled 2022-12-25 [facility] 22:34:02 malignant neoplasm of colon (procedure) [code = 903023682] Future Scheduled 2022-12-25 [facility] Test 22:34:02 malignant neoplasm of colon (procedure) [code = 929440782] Future Scheduled 2022-12-25 SHINGLES VACCINES (1 [facility] Test 22:34:02 of 2) [code = SHINGLES VACCINES (1 of 2)] Future Scheduled 2022-12-25 65+ PNEUMOCOCCAL [facility] Hospital Test 22:34:02 VACCINE (1 - PCV) [code = 65+ PNEUMOCOCCAL VACCINE (1 - PCV)] Future Scheduled 2022-12-25 INFLUENZA VACCINE Method [facility] Test 22:34:02 [code = INFLUENZA VACCINE] Future Scheduled 2022-07-02 COVID-19 VACCINE (#1) [facility] Hospital Test 12:43:13 [code = COVID-19 VACCINE (#1)] Future Scheduled 2022-07-02 COLONOSCOPY SCREENING [facility] Hospital Test 12:43:13 [code = COLONOSCOPY SCREENING] Future Scheduled 2022-07-02 SHINGLES VACCINES (1 [facility] Test 12:43:13 of 2) [code = SHINGLES VACCINES (1 of 2)] Future Scheduled 2022-07-02 65+ PNEUMOCOCCAL [facility] Hospital Test 12:43:13 VACCINE (1 - PCV) [code = 65+ PNEUMOCOCCAL VACCINE (1 - PCV)] Future Scheduled 2022-07-02 INFLUENZA VACCINE Method is Hospital Test 12:43:13 [code = INFLUENZA VACCINE] Future Scheduled 2022-07-02 COVID-19 VACCINE (#1) [facility] Test 12:43:13 [code = COVID-19 VACCINE (#1)] Future Scheduled 2022-07-02 COLONOSCOPY SCREENING [facility] Test 12:43:13 [code = COLONOSCOPY SCREENING] Future Scheduled 2022-07-02 SHINGLES VACCINES (1 [facility] Test 12:43:13 of 2) [code = SHINGLES VACCINES (1 of 2)] Future Scheduled 2022-07-02 65+ PNEUMOCOCCAL [facility] Test 12:43:13 VACCINE (1 - PCV) [code = 65+ PNEUMOCOCCAL VACCINE (1 - PCV)] Future Scheduled 2022-07-02 INFLUENZA VACCINE Method ist Hospital Test 12:43:13 [code = INFLUENZA VACCINE] Future Scheduled 2022-06-22 [facility] 13:11:51 [code = COVID-19 VACCINE (#1)] Future Scheduled 2022-06-22 COLONOSCOPY SCREENING [facility] Hospital Test 13:11:51 [code = COLONOSCOPY SCREENING] Future Scheduled 2022-06-22 SHINGLES VACCINES (1 [facility] Test 13:11:51 of 2) [code = SHINGLES VACCINES (1 of 2)] Future Scheduled 2022-06-22 65+ PNEUMOCOCCAL [facility] Hospital Test 13:11:51 VACCINE (1 - PCV) [code = 65+ PNEUMOCOCCAL VACCINE (1 - PCV)] Future Scheduled 2022-06-22 INFLUENZA VACCINE Method ist Hospital Test 13:11:51 [code = INFLUENZA VACCINE] Future Scheduled 2022-06-01 COVID-19 [facility]ACCINE (#[facility] Test 03:44:23 [code = COVID-19 VACCINE (#1)] Future Scheduled 2022-06-01 COLONOSCOPY SCREENING [facility] Test 03:44:23 [code = COLONOSCOPY SCREENING] Future Scheduled 2022-06-01 SHINGLES VACCINES (1 [facility] Test 03:44:23 of 2) [code = SHINGLES VACCINES (1 of 2)] Future Scheduled 2022-06-01 65+ PNEUMOCOCCAL [facility] Test 03:44:23 VACCINE (1 - PCV) [code = 65+ PNEUMOCOCCAL VACCINE (1 - PCV)] Future Scheduled 2022-06-01 INFLUENZA VACCINE Method ist Hospital Test 03:44:23 [code = INFLUENZA VACCINE] Future Scheduled 2022-05-16 HEPATITIS B VACCINES Met [facility] Test 12:40:21 (1 of 3 - 3-dose series) [code = HEPATITIS B VACCINES (1 of 3 - 3-dose series)] Future Scheduled 2022-05-16 COVID-19 VACCINE (#1) [facility] Test 12:40:21 [code = COVID-19 VACCINE (#1)] Future Scheduled 2022-05-16 COLONOSCOPY SCREENING [facility] Test 12:40:21 [code = COLONOSCOPY SCREENING] Future Scheduled 2022-05-16 SHINGLES VACCINES (1 Met [facility] Test 12:40:21 of 2) [code = SHINGLES VACCINES (1 of 2)] Future Scheduled 2022-05-16 65+ [facility] 12:[facility]:21 VACCINE (1 - PCV) [code = 65+ PNEUMOCOCCAL VACCINE (1 - PCV)] Future Scheduled 2022-05-16 INFLUENZA VACCINE Method [facility] Hospital Test 12:40:21 [code = INFLUENZA VACCINE] Future Scheduled 2022-05-16 HEPATITIS B VACCINES Met [facility] Test 12:40:21 (1 of 3 - 3-dose series) [code = HEPATITIS B VACCINES (1 of 3 - 3-dose series)] Future Scheduled 2022-05-16 COVID-19 VACCINE (#1) [facility] Test 12:40:21 [code = COVID-19 VACCINE (#1)] Future Scheduled 2022-05-16 COLONOSCOPY SCREENING [facility] Test 12:40:21 [code = COLONOSCOPY SCREENING] Future Scheduled 2022-05-16 SHINGLES VACCINES (1 [facility] Test 12:40:21 of 2) [code = SHINGLES VACCINES (1 of 2)] Future Scheduled 2022-05-16 65+ PNEUMOCOCCAL Methodi [facility] Test 12:40:21 VACCINE (1 - PCV) [code = 65+ PNEUMOCOCCAL VACCINE (1 - PCV)] Future Scheduled 2022-05-16 INFLUENZA VACCINE Method [facility] Test 12:40:21 [code = INFLUENZA VACCINE] Future Scheduled 2022-02-15 HEPATITIS B VACCINES Met [facility] Test 22:23:02 (1 of 3 - 3-dose series) [code = HEPATITIS B VACCINES (1 of 3 - 3-dose series)] Future Scheduled 2022-02-15 COVID-19 VACCINE (#1) [facility] Test 22:23:02 [code = COVID-19 VACCINE (#1)] Future Scheduled 2022-02-15 COLONOSCOPY SCREENING [facility] Test 22:23:02 [code = COLONOSCOPY SCREENING] Future Scheduled 2022-02-15 SHINGLES VACCINES (1 Met [facility] Test 22:23:02 of 2) [code = SHINGLES VACCINES (1 of 2)] Future Scheduled 2022-02-15 65+ PNEUMOCOCCAL Methodi [facility] Test 22:23:02 VACCINE (1 - PCV) [code = 65+ PNEUMOCOCCAL VACCINE (1 - PCV)] Future Scheduled 2022-02-15 INFLUENZA VACCINE Method [facility] Test 22:23:02 [code = INFLUENZA VACCINE] Future Scheduled 2022-02-15 HEPATITIS B VACCINES Met [facility] Test 22:23:02 (1 of 3 - 3-dose series) [code = HEPATITIS B VACCINES (1 of 3 - 3-dose series)] Future Scheduled 2022-02-15 COVID-19 VACCINE (#1) [facility] Test 22:23:02 [code = COVID-19 VACCINE (#1)] Future Scheduled 2022-02-15 COLONOSCOPY SCREENING [facility] Test 22:23:02 [code = COLONOSCOPY SCREENING] Future Scheduled 2022-02-15 SHINGLES VACCINES (1 Met [facility] Test 22:23:02 of 2) [code = SHINGLES VACCINES (1 of 2)] Future Scheduled 2022-02-15 65+ PNEUMOCOCCAL Methodi [facility] Test 22:23:02 VACCINE (1 - PCV) [code = 65+ PNEUMOCOCCAL VACCINE (1 - PCV)] Future Scheduled 2022-02-15 INFLUENZA VACCINE Method [facility] Test 22:23:02 [code = INFLUENZA VACCINE] Encounters Start End Encounter Admission Attending Care Care Encounter Source Date/Time Date/Time Type Type Clinicians Facility Department ID 2022-12-14 Outpatient [facility] [id number] [place] 01:57:31 [id number] [facility] 2022-07-12 Outpatient [facility] [id number] [place] 14:39:02 [id number] [facility] 2022-07-10 Outpatient [facility] [id number] Common 13:23:02 [id number] [facility] 2022-07-06 Outpatient [facility] [id number] Common 15:54:02 [facility] 2022-06-06 Outpatient [facility] [id number] Common 14:38:03 [facility] 2022-05-16 Outpatient [facility] [id number] [place] 16:53:26 [id number] [facility] 2022-04-26 Outpatient [facility] [id number] [place] 14:57:[id number] [place] [address] 2022-04-21 Outpatient [facility] [id number] [place] 16:28:[id number] [place] [address] 2022-04-20 Outpatient STLMLC STLC [id number] Common 15:28:02 [facility] 2022-04-13 Outpatient [facility] [id number] [place] 22:41:[id number] [place] [address] 2022-04-06 Outpatient [facility] [id number] [place] 12:07:[id number] [place] [address] 2022-07-12 2022-07-12 [address] [facility] [id number] mmon 00:00:00 00:00:00 VISIT [facility] LEVEL 4 [facility] 2022-05-26 2022-05-26 [facility] [address] [facility] 05:31:00 11:45:00 [place] 2022-05-26 2022-05-26 Outpatient ANCA, [facility] [id number] [place] 07:45:00 07:45:00 [facility] 2022-04-25 2022-04-25 Office Anca, [facility] [id number] [place] 12:00:00 13:59:27 Visit [place] [id number] Anson SANCHEZ 2 [id number] 2022-04-11 2022-04-11 Office Anca, [facility] [id number] [place] 14:20:00 15:43:47 Visit [place] [facility] [id number] [facility] [place] [facility] 2 [id number] [id number] 2021-12-21 2021-12-21 Outpatient ANCA, [facility] [address] [facility] 13:48:00 23:59:00 [place] 2021-12-21 2021-12-21 Telephone Anca, [facility] [id number] [place] 00:00:00 00:00:00 [place] [facility] [id number] [facility] [place] 2 [id number] [id number] 2021-12-06 2021-12-06 Telephone Anca, [facility] [id number] [place] 00:00:00 00:00:00 [place] [facility] [id number] He alth [place] 2 [id number] [id number] 5 2021-10-10 2021-10-10 Telephone Anca, [facility] [id number] [place] 00:00:00 00:00:00 [place] [facility] [id number] He alth [place] 2 [id number] [id number] 2021-10-05 2021-10-05 Telephone Anca, [facility] [id number] [place] 00:00:00 00:00:00 [place] [facility] [id number] He alth [place] 2 [id number] [id number] 2021-09-02 2021-09-02 Telephone Anca, [facility] [id number] [place] 00:00:00 00:00:00 [place] [facility] [id number] He alth [place] 2 [id number] [id number] 2021-08-26 2021-08-26 Telephone Anca, [facility] [id number] [place] 00:00:00 00:00:00 [place] [facility] [id number] Anson SANCHEZ 2 [id number] [id number] 2021-08-24 2021-08-24 Telephone Anca [facility] [id number] [place] 00:00:00 00:00:00 [place] [facility] [id number] Anson alth Juanita SANCHEZ 2 9.2.7.2.686 [id number] 2021-08-23 2021-08-23 Office [facility] [id number] [place] 08:45:00 09:58:51 Visit [place] [facility] [id number] Anson SANCHEZ 2 [id number] [id number] 2021-08-22 2021-08-22 Telephone Nikunj Orozco [facility] 1.2.84 0.114 [id number] [place] 00:00:00 00:00:00 Nikunj Orozco 350.1.13.58 [facility] 9.2.7.2.686 [place] [id number] 2021-08-10 2021-08-10 [facility] [id number] [place] 00:00:00 00:00:00 [place] [facility] [id number] Anson SANCHEZ 2 [id number] [id number] 2020-05-21 2020-05-21 Hospital Radiology [facility] [id number] 12:15:00 23:59:00 Encounter [place] 350.1.13.10 [place] 4.2.7.2.686 [place] [id number] 2020-05-21 2020-05-21 [facility] Radiology [facility] [id number] [facility] 12:15:00 23:59:00 Encounter [place] 350.1.13.10 ity of [place] 4.2.7.2.686 [facility] [id number] [address] 2020-05-21 2020-05-21 Outpatient [facility] [id number] Univers 00:00:00 00:00:[address] [facility] Results Test Description Test Time Test Comments Results Result Sourc e Comments XR CHEST 2 VW No evidence of acute U niversity of 4 cardiopulmonary [place] [facility] 18:40:00 disease.2 VIEWS OF Branch THE CHEST HISTORY: Chest pain, unspecified type COMPARISON: 06/08/2017 TECHNIQUE: PA and lateral views of the chest. FINDINGS: The lungs are clear. There is no focal consolidation, pleural effusion orpneumothorax. The cardiomediastinal silhouette is within normal limits. ?No acute bonyabnormalities are seen. [facility] Results Inft User - 05/21/2020 12:41 PM CST2 VIEWS OF THE CHESTHISTORY: Chest pain, unspecified type COMPARISON: 06/08/2017TECHNIQUE: PA and lateral views of the chest.FINDINGS:The lungs are clear. There is no focal consolidation, pleural effusion orpneumothorax.The cardiomediastinal silhouette is within normal limits. No acute bonyabnormalities are seen.IMPRESSIONNo evidence of acute cardiopulmonary disease.
[2023-01-17] MEDS ORDERED: MORPHINE 4 MG/ML SYR ONE (00:31)
[2023-01-17] MEDS ORDERED: MECLIZINE HCL 12.5 MG TAB ONE (00:32)
[2023-01-17] MEDS ORDERED: ONDANSETRON 4 MG/2 ML VIAL ONE (00:32)
[2023-01-17 00:39] LABS: Protime INR 1.06
[2023-01-17 00:41] LABS: Absolute Lymphocytes (CBC) 1.3 K/uL (0.7-4.9); Hematocrit 39.2 % (39.6-49.0); MCV 86.9 fL (80-100); MPV 7.5 fL (7.6-11.3); RBC Red Blood Cell Count 4.51 M/uL (4.33-5.43)
[2023-01-17 00:50] LABS: Albumin 3.5 g/dL (3.4-5.0); Bilirubin Direct 0.2 mg/dL (0-0.2); Bilirubin Indirect, Calculated 0.4 mg/dL (0.2-0.8); Bilirubin Total 0.6 mg/dL (0.2-1.0); Magnesium 2.1 mg/dL (1.6-2.4); Potassium 3.5 mEq/L (3.5-5.1); Troponin High Sensitivity 21.5 pg/mL (<58.9)
--- NOTE | 2023-01-17 02:18 | EDPHYS ---
Physician Documentation [facility] Name: Jose Hoyt Age: 68 yrs Sex: Male : 1955 Arrival Date: 01/16/2023 Time: 23:27 Bed 2 Private MD: ED Physician Curtis Hayes HPI: 01/16 23:37 This 68 yrs old Male presents to ER via Unassigned with complaints of Chest sp4 Pain. Historical: - Allergies: 23:41 No Known Allergies; cm10 - PMHx: 23:41 Anxiety; Diabetes - NIDDM; resolved; Hypertension; neuropathy; cm10 - PSHx: 23:41 penile sx; cm10 - Immunization history:: Adult Immunizations unknown. - Social history:: Smoking status: Patient denies any tobacco usage or history of. ROS: 01/17 01:56 Constitutional: Negative for fever, chills, and weight loss, positive generalized sp4 weakness and chest pain Cardiovascular: Negative for palpitations, and edema, positive for chest pain All other systems are negative. Exam: 01:56 Constitutional: This is a well developed, well nourished patient who is awake, alert, sp4 and in no acute distress. Head/Face: Normocephalic, atraumatic. Eyes: Pupils equal round and reactive to light, extra-ocular motions intact. Lids and lashes normal. Conjunctiva and sclera are not injected. Cornea within normal limits. Periorbital areas with no swelling, redness, or edema. ENT: Nares patent. No nasal discharge, no septal abnormalities noted. Tympanic membranes are normal and external auditory canals are clear. Oropharynx with no redness, swelling, or masses, exudates, or evidence of obstruction, uvula midline. Mucous membranes moist. Neck: Trachea midline, no thyromegaly or masses palpated, and no cervical lymphadenopathy. Supple, full range of motion without nuchal rigidity, or vertebral point tenderness. Chest/axilla: Normal chest wall appearance and motion. Nontender with no deformity. No lesions are appreciated. Cardiovascular: Regular rate and rhythm with a normal S1 and S2. No gallops, murmurs, or rubs. Normal PMI, no JVD. No pulse deficits. Respiratory: Lungs have equal breath sounds bilaterally, clear to auscultation and percussion. No rales, rhonchi or wheezes noted. No increased work of breathing, no retractions or nasal flaring. Abdomen/GI: Soft, non-tender, with normal bowel sounds. No distension or tympany. No guarding or rebound. No evidence of tenderness throughout. Back: No spinal tenderness. No costovertebral tenderness. Skin: Warm, dry with normal turgor. Normal color with no rashes, no lesions, and no evidence of cellulitis. MS/ Extremity: Pulses equal, no cyanosis. Neurovascular intact. Full, normal range of motion. Neuro: Awake and alert, GCS 15, oriented to person, place, time, and situation. Cranial nerves II-XII grossly intact. Motor strength 5/5 in all extremities. Sensory grossly intact. Psych: Awake, alert, with orientation to person, place and time. Behavior, mood, and affect are within normal limits 01:56 ECG was reviewed by the Attending Physician. 2359 EKG time, there is normal sinus rhythm at the rate of 61, no ST elevation or depression. No ectopy. Inverted T waves lead III and aVF Vital Signs: 01/16 23:39 BP 120 / 68; Pulse 94; Resp 18; Temp 98.1; Pulse Ox 100% ; Weight 107.95 kg; Height 5 cm10 ft. 8 in. ; Pain 8/10; 01/17 00:00 BP 122 / 70; Pulse 60; Resp 17 S; Pulse Ox 96% on 2 lpm NC; jw7 01:00 BP 124 / 70; Pulse 54; Resp 16 S; Pulse Ox 97% on 2 lpm NC; jw7 02:00 BP 125 / 74; Pulse 71; Resp 19 S; Pulse Ox 100% on 2 lpm NC; jw7 03:03 BP 127 / 73; Pulse 55; Resp 12 S; Pulse Ox 98% on 2 lpm NC; jw7 04:00 BP 134 / 76; Pulse 53; Resp 15 S; Pulse Ox 99% on 2 lpm NC; jw7 01/16 23:39 Body Mass Index 36.19 (107.95 kg, 172.72 cm) cm10 01/16 23:39 Pain Scale: Adult cm10 MDM: 01/16 23:39 Patient medically screened. sp4 01/17 01:44 ED course: CT head: No acute intracranial hemorrhage identified. No mass, mass effect, sp4 shift of the midline, abnormal extra-axial fluid collection or CT evidence of acute ischemic change identified. The ventricular system and sulcal spaces are mildly enlarged compatible with mild cerebral atrophy. Scattered areas of hypodensity throughout the supratentorial white matter are nonspecific and may be related to chronic small vessel ischemic change. The visualized paranasal sinuses and mastoid air cells are well aerated. No skull fracture identified. Visualized orbits and globes are unremarkable. Atherosclerotic calcification of the intracranial internal carotid arteries. Cervical CT: Alignment of the cervical spine is maintained without evidence of subluxation. The atlantoaxial, atlantodental, and occipitoatlantal intervals are preserved. No fracture identified. Vertebral body height preserved. Prevertebral soft tissues are unremarkable. Mild multilevel loss of intervertebral disc height with endplate spondylosis, facet arthropathy, and uncovertebral spurring. Visualized skull base is intact. No fracture of the visualized facial bones. Visualized mastoid air cells and paranasal sinuses are well aerated. Visualized thyroid is unremarkable. No cervical lymphadenopathy. No pneumothorax in the visualized lung apices. Atherosclerotic vascular calcification. IMPRESSION: 1. No acute intracranial abnormality. 2. No acute fracture or subluxation of the cervical spine. 3. Multilevel degenerative change of the cervical spine. . ED course: EXAM DESCRIPTION: Chest Single View CLINICAL HISTORY: CHEST PAIN COMPARISON: None. FINDINGS: Single frontal radiograph view of the chest. Cardiomediastinal silhouette: Atherosclerotic calcification of thoracic aorta. Cardiomegaly. Lungs: No consolidation, pneumothorax, or pleural effusion. Bones: Degenerative change of the spine and shoulders. Upper abdomen: No abnormality identified. IMPRESSION: 1. No acute pulmonary process identified. 2. Cardiomegaly. . 01:58 HEART Score: History: Moderately Suspicious (1), ECG: Non specific repolarization sp4 disturbance / LBTB / PM (1), Age: > or = 65 years (2), Risk Factors: > or = 3 Risk factors for atherosclerotic disease (2), Troponin: < or = 1 x Normal Limit (0), Total Score = 6. Data reviewed: vital signs, nurses notes, old medical records, lab test result(s), EKG, radiologic studies, CT scan, plain films. 02:12 Differential diagnosis: acute myocardial infarction, acute pericarditis, anxiety, sp4 coronary artery disease chest wall pain, congestive heart failure cholecystitis. The patient was given aspirin in the Emergency Department. Consideration of Admission/Observation Patient was admitted/placed on observation. Escalation of care including admission/observation considered. Management of patient was discussed with the following: Hospitalist: Discussed with admitting team. ED course: Creatinine 1.31. CBC is normal. LFTs normal troponin is normal proBNP 89.. ED course: Patient continues to complain about mild chest pain also dizziness associated with vertigo. We will pursue admission for observation for troponin trend and additional testing as necessary.. 01/16 23:38 Order name: Basic Metabolic Panel; Complete Time: 01:43 sp4 01/16 23:38 Order name: CBC with Diff; Complete Time: :43 sp4 01/16 23:38 Order name: LFT's; Complete Time: :43 sp4 01/16 23:38 Order name: Magnesium; Complete Time: :43 sp4 01/16 23:38 Order name: NT PRO-BNP; Complete Time: 01:43 sp4 01/16 23:38 Order name: PT-INR; Complete Time: :43 sp4 01/16 23:38 Order name: Troponin HS; Complete Time: 01:43 sp4 01/17 02:08 Order name: Troponin High Sensitivity; Complete Time: 03:51 sp4 02 02:08 Order name: SARS RAPID; Complete Time: 03:51 sp4 01/17 02:08 Order name: TSH; Complete Time: 03:51 sp4 02 02:08 Order name: T4 Free; Complete Time: 03:51 sp4 01/16 23:38 Order name: XRAY Chest (1 view) sp4 01/16 23:38 Order name: CT Head C Spine sp4 01/16 23:38 Order name: EKG; Complete Time: 23:38 sp4 01/16 23:38 Order name: Cardiac monitoring; Complete Time: 23:42 sp4 01/16 23:38 Order name: EKG - Nurse/Tech; Complete Time: 00:17 sp4 01/16 23:38 Order name: IV Saline Lock; Complete Time: 00:17 sp4 01/16 23:38 Order name: Labs collected and sent; Complete Time: 00:17 sp4 01/16 23:38 Order name: O2 Per Protocol; Complete Time: 23:42 sp4 01/16 23:38 Order name: O2 Sat Monitoring; Complete Time: 23:42 sp4 EC:56 Rate is 61 beats/min. Rhythm is regular, Sinus Rhythm. QRS [place] is Normal. NH interval sp4 is normal. QRS interval is normal. QT interval is normal. T waves are Inverted in leads III, aVF. T waves are Flattened in lead V6. Clinical impression: No evidence of ischemia. Interpreted by me. Administered Medications: 00:52 Drug: Ondansetron IVP 4 mg Route: IVP; Site: left antecubital; jw7 02:22 Follow up: Response: No adverse reaction jw7 00:52 Drug: morphine IVP or IV 4 mg Route: IVP; Infused Over: 4 mins; Site: left antecubital; jw7 02:22 Follow up: Response: No adverse reaction jw7 00:52 Drug: Meclizine PO 25 mg Route: PO; jw7 02:23 Follow up: Response: No adverse reaction jw7 02:39 Drug: Aspirin PO Chewable Tablet 324 mg Route: PO; jw7 03:35 Follow up: Response: No adverse reaction jw7 Disposition Summary: 01/17/23 02:17 Hospitalization Ordered Hospitalization Status: Observation sp4 Provider: Hunter Baez sp4 Condition: Stable sp4 Problem: new sp4 Symptoms: are unchanged sp4 Bed/Room Type: Standard sp4 Location: Telemetry/MedSurg (observation)(01/17/23 04:05) cg Room Assignment: [facility](01/17/23 04:05) cg Diagnosis - Angina pectoris, unspecified sp4 - Dizziness and giddiness sp4 Forms: - Medication Reconciliation Form sp4 - SBAR form sp4 Signatures: Dispatcher [employer] Giuliana Venegas RN RN Kacie Mendoza RN RN jw7 Curtis Hayes MD MD sp4 Padma Astorga RN RN cm10 Corrections: (The following items were deleted from the chart) 03:23 02:17 Telemetry/MedSurg (observation) sp4 cg 03:23 02:17 sp4 cg 04:05 03:23 [facility] ER HOLD cg cg 04:05 03:23 ERHOLD- cg cg
--- NOTE | 2023-01-17 02:18 | ER ---
Nurse's Notes [facility] Name: Jose Hoyt Age: 68 yrs Sex: Male : 1955 Arrival Date: 01/16/2023 Time: 23:27 Bed 2 Private MD: Diagnosis: Angina pectoris, unspecified;Dizziness and giddiness Presentation: 01/16 23:39 Chief complaint: Patient states: generalized weakness, dizziness and "seeing floaters" cm10 onset today at 1800. Pt also reports chest pain "that comes and goes". Coronavirus screen: Vaccine status: Patient reports receiving the 2nd dose of the covid vaccine. Ebola Screen: Patient denies travel to an Ebola-affected area in the 21 days before illness onset. No symptoms or risks identified at this time. Initial Sepsis Screen: Does the patient meet any 2 criteria? No. Patient's initial sepsis screen is negative. Does the patient have a suspected source of infection? No. Patient's initial sepsis screen is negative. Risk Assessment: Do you want to hurt yourself or someone else? Patient reports no desire to harm self or others. Onset of symptoms was January 16, 2023. 23:39 Method Of Arrival: Wheelchair cm10 23:39 Acuity: SANDY 2 cm10 Historical: - Allergies: 23:41 No Known Allergies; cm10 - PMHx: 23:41 Anxiety; Diabetes - NIDDM; resolved; Hypertension; neuropathy; cm10 - PSHx: 23:41 penile sx; cm10 - Immunization history:: Adult Immunizations unknown. - Social history:: Smoking status: Patient denies any tobacco usage or history of. Screenin/02 02:58 [facility] ED Fall Risk Assessment (Adult) History of falling in the last 3 months, jw7 including since admission No falls in past 3 months (0 pts) Confusion or Disorientation No (0 pts) Intoxicated or Sedated No (0 pts) Impaired Gait No (0 pts) Mobility Assist Device Used No (0 pt) Altered Elimination No (0 pt) Score/Fall Risk Level 0 - 2 = Low Risk Oriented to surroundings, Maintained a safe environment, Educated pt \\T\\ family on fall prevention, incl call for assistance when getting out of bed. Abuse screen: Denies threats or abuse. Nutritional screening: No deficits noted. Tuberculosis screening: No symptoms or risk factors identified. Assessment: 00:26 General: Appears in no apparent distress. uncomfortable, Behavior is calm, cooperative. as6 Pain: Complains of pain in neck Pain does not radiate. Pain currently is 8 out of 10 on a pain scale. Quality of pain is described as sharp, Pain began years ago. Neuro: Level of Consciousness is awake, alert, obeys commands, Oriented to person, place, time, situation. Cardiovascular: Heart tones S1 S2 present Capillary refill < 3 seconds Patient's skin is warm and dry. Respiratory: Airway is patent Trachea midline Respiratory effort is even, unlabored, Respiratory pattern is regular, symmetrical, Breath sounds are clear bilaterally. 01:39 Reassessment: Patient appears in no apparent distress at this time. Patient and/or jw7 family updated on plan of care and expected duration. Pain level reassessed. Patient is alert, oriented x 3, equal unlabored respirations, skin warm/dry/pink. Patient states feeling better. Patient states symptoms have improved. 02:40 Reassessment: Patient appears in no apparent distress at this time. Patient and/or jw7 family updated on plan of care and expected duration. Pain level reassessed. Patient is alert, oriented x 3, equal unlabored respirations, skin warm/dry/pink. Patient denies pain at this time. Patient states feeling better. Patient states symptoms have improved. 04:35 General: attempted to call report, nurse not available . Vital Signs: 01/16 23:39 BP 120 / 68; Pulse 94; Resp 18; Temp 98.1; Pulse Ox 100% ; Weight 107.95 kg; Height 5 cm10 ft. 8 in. ; Pain 8/10; 01/17 00:00 BP 122 / 70; Pulse 60; Resp 17 S; Pulse Ox 96% on 2 lpm NC; 7 01:00 BP 124 / 70; Pulse 54; Resp 16 S; Pulse Ox 97% on 2 lpm NC; 7 02:00 BP 125 / 74; Pulse 71; Resp 19 S; Pulse Ox 100% on 2 lpm NC; 7 03:03 BP 127 / 73; Pulse 55; Resp 12 S; Pulse Ox 98% on 2 lpm NC; 7 04:00 BP 134 / 76; Pulse 53; Resp 15 S; Pulse Ox 99% on 2 lpm NC; 7 01/16 23:39 Body Mass Index 36.19 (107.95 kg, 172.72 cm) cm10 01/16 23:39 Pain Scale: Adult cm10 ED Course: 01/16 23:28 Patient arrived in ED. jj6 23:37 Curtis Hayes MD is Attending Physician. sp4 23:41 Triage completed. cm10 23:42 Arm band placed on Patient placed in an exam room, on a stretcher, on cardiac sonographer, cm10 on pulse oximetry. 23:49 Naif Hood, RN is Primary Nurse. as6 01/17 00:17 Initial lab(s) drawn, by me, sent to lab. EKG done, by ED staff, reviewed by Curtis Hayes MD. Inserted saline lock: 20 gauge in left antecubital area, using aseptic technique. Blood collected. Patient maintains SpO2 saturation greater than 95% on room air. 00:17 Basic Metabolic Panel Sent. as6 00:17 CBC with Diff Sent. as6 00:18 LFT's Sent. as6 00:18 Magnesium Sent. as6 00:18 NT PRO-BNP Sent. as6 00:18 PT-INR Sent. as6 00:18 Troponin HS Sent. as6 00:21 XRAY Chest (1 view) In Process Unspecified. EDMS 00:41 CT Head C Spine In Process Unspecified. EDMS 02:16 Dilcia Mcgrath MD is Hospitalizing Provider. sp4 02:17 Hospitalizing Provider role handed off by Dilcia Mcgrath MD sp4 02:17 Hunter Baez MD is Hospitalizing Provider. sp4 02:39 Lab(s) recollected, by me, sent to lab. COVID swab sent to lab. jw7 03:00 No provider procedures requiring assistance completed. jw7 03:01 Patient has correct armband on for positive identification. Bed in low position. Call jw7 light in reach. Side rails up X2. Client placed on continuous cardiac and pulse oximetry monitoring. NIBP monitoring applied. 03:35 SARS RAPID Sent. jw7 03:35 Troponin High Sensitivity Sent. jw7 03:35 TSH Sent. jw7 03:35 T4 Free Sent. jw7 04:47 Provided Education on: need for admit. jw7 04:47 Patient admitted, IV remains in place. jw7 Administered Medications: 00:52 Drug: Ondansetron IVP 4 mg Route: IVP; Site: left antecubital; jw7 02:22 Follow up: Response: No adverse reaction jw7 00:52 Drug: morphine IVP or IV 4 mg Route: IVP; Infused Over: 4 mins; Site: left antecubital; jw7 02:22 Follow up: Response: No adverse reaction jw7 00:52 Drug: Meclizine PO 25 mg Route: PO; jw7 02:23 Follow up: Response: No adverse reaction jw7 02:39 Drug: Aspirin PO Chewable Tablet 324 mg Route: PO; jw7 03:35 Follow up: Response: No adverse reaction jw7 Medication: 03:01 VIS not applicable for this client. jw7 Outcome: 02:17 Decision to Hospitalize by Provider. sp4 03:00 Condition: stable jw7 04:46 Admitted to Med/surg accompanied by tech, via stretcher, room 422, Report called to марина Elaine RN 04:46 Instructed on the need for admit. 05:26 Patient left the ED. lg3 Signatures: Dispatcher [employer] EDMS Kae Shah, RN RN lg3 Renata Lopez jj6 Naif Hood RN RADHA as6 Kacie Manrique RN RN jw7 Curtis Hayes MD MD sp4 Padma Astorga RN RN cm10 Corrections: (The following items were deleted from the chart) 02:58 00:00 BP 122 / 70; Pulse 60bpm; Resp 17bpm; Spontaneous; Pulse Ox 96% RA; as6 7 02:58 01:00 BP 124 / 70; Pulse 54bpm; Resp 16bpm; Spontaneous; Pulse Ox 97% RA; jw7 jw7 02:58 02:00 BP 125 / 74; Pulse 71bpm; Resp 19bpm; Spontaneous; Pulse Ox 100% RA; jw7 jw7 03:06 03:03 BP 127 / 73; Pulse 52bpm; Resp 12bpm; Spontaneous; Pulse Ox 98% 2 lpm Nasal jw7 Cannula; jw7
[2023-01-17] MEDS ORDERED: ASPIRIN 81 MG CHEWABLE TABLET ONE (02:29)
--- NOTE | 2023-01-17 03:28 | P.HP ---
Certification for Inpatient Patient admitted to: Observation With expected LOS: <2 Midnights Patient will require the following post-hospital care: None Practitioner: I am a practitioner with admitting privileges, knowledge of patient current condition, hospital course, and medical plan of care. Services: Services provided to patient in accordance with Admission requirements found in Title 42 Section 412.3 of the Code of Federal Regulations <Tolu Mobley - Last Filed: 01/17/23 03:26> Patient History Date of Service: 01/17/23 Reason for admission: Chest pain History of Present Illness: 68-year-old male with history of hypertension, hyperlipidemia presents the emergency department chief complaint of chest pain, he reports the pain began while he was resting at home on the couch, pain was described as stabbing-like, nonradiating associated with general weakness. His pain has resolved at this time his labs are significant for initial high-sensitivity troponin 21.5 creatinine 1.31 GFR 59 glucose 132 chest x-ray negative for acute findings, EKG without STEMI criteria present, ED provider wishes to admit under observation for ACS rule out. - Past Medical/Surgical History Diabetic: No -: HTN -: Peripheral neuropathy -: obesity -: JHONNY -: hypercholesterolemia -: back surgery -: back cyst removal -: right knee sx Psychosocial/ Personal History: Patient lives at home, alone and is retired. - Family History Mother -: Heart disease, Diabetes, Cancer, Liver disease Notes: mother of liver cancer. Father -: Heart disease, Cancer Notes: Colon CA - Social History Smoking Status: Never smoker Alcohol use: No CD- Drugs: No Caffeine use: No Place of Residence: Home <Tolu Mobley - Last Filed: 01/17/23 03:26> Date of Service: 01/17/23 <Hunter Baez - Last Filed: 01/17/23 16:25> Allergies No Known Allergies Allergy (Verified 08/29/22 11:47) Home Medications: RX: Hydroxychloroquine [Plaquenil*] 200 mg PO BID 11/08/12 RX: Ascorbic Acid [Vitamin C] 500 mg PO DAILY 04/02/14 RX: Cholecalciferol (Vitamin D3) [Vitamin D] 1,000 unit PO BEDTIME 04/02/14 RX: Gabapentin [Neurontin*] 400 mg PO BID 04/02/14 RX: Glucosamine/Chondr Wong A Sod [Osteo Bi-Flex Caplet] 1 tab PO BEDTIME 04/02/14 RX: Loratadine [Claritin*] 10 mg PO DAILY 04/02/14 RX: Losartan/Hydrochlorothiazide [Losartan-Hctz 100-25 mg Tab] 1 each PO DAILY AFTER SUPPER 05/21/18 RX: Potassium Chloride 10 meq PO DAILY 05/21/18 RX: Simvastatin 10 mg PO BEDTIME 05/21/18 RX: Zinc 1 tab PO BID 05/21/18 RX: atenoloL [Tenormin*] 50 mg PO BID 05/21/18 RX: Aspirin [Aspirin EC 81 MG] 81 mg PO DAILY #90 tablet. 07/13/18 RX: Cyanocobalamin [Vitamin B-12*] 1,000 mcg PO DAILY 07/13/18 RX: Famotidine [Pepcid AC] 20 mg PO BID #60 tablet 07/13/18 RX: NIFEdipine [Nifedipine ER] 30 mg PO DAILY 07/13/18 RX: Pyridoxine HCl (Vitamin B6) [Vitamin B-6] 100 mg PO DAILY 07/13/18 RX: Selenium 200 mcg PO BEDTIME 07/13/18 RX: Thiamine HCl [Vitamin B-1*] 100 mg PO DAILY 07/13/18 RX: Levothyroxine [Synthroid*] 88 mcg PO DAILY 08/17/22 RX: Pantoprazole [Protonix Tab*] 40 mg PO DAILY 08/17/22 RX: Tamsulosin HCl [Flomax] 0.4 mg PO DAILY 08/17/22 RX: Codeine/APAP [Tylenol #3*] 1 tab PO Q6H PRN #15 tab 08/29/22 Review of Systems 10-point ROS is otherwise unremarkable Cardiovascular: Chest Pain <Tolu Mobley Pool - Last Filed: 01/17/23 03:26> Physical Examination - Physical Exam General: Alert, In no apparent distress, Oriented x3 HEENT: Atraumatic, PERRLA, Mucous membr. moist/pink, EOMI, Sclerae nonicteric Neck: Supple, 2+ carotid pulse no bruit, No LAD, Without JVD or thyroid abnormality Respiratory: Clear to auscultation bilaterally, Normal air movement Cardiovascular: Regular rate/rhythm, Normal S1 S2 Capillary refill: <2 Seconds Gastrointestinal: Normal bowel sounds, No tenderness Musculoskeletal: No tenderness Integumentary: No rashes Neurological: Normal speech, Normal strength at 5/5 x4 extr, Normal tone, Normal affect - Studies Laboratory Data (last 24 hrs) 01/17/23 01/17/23 01/17/23 00:09 00:09 00:09 WBC 9.60 Hgb 13.6 Hct 39.2 L Plt Count 172 PT 11.7 INR 1.06 Sodium 139 Potassium 3.5 BUN 22 H Creatinine 1.31 H Glucose 132 H Magnesium 2.1 Total Bilirubin 0.6 AST 13 L ALT 19 Alkaline Phosphatase 107 <Tolu Mobley - Last Filed: 01/17/23 03:26> - Studies Laboratory Data (last 24 hrs) 01/17/23 01/17/23 01/17/23 00:09 00:09 00:09 WBC 9.60 Hgb 13.6 Hct 39.2 L Plt Count 172 PT 11.7 INR 1.06 Sodium 139 Potassium 3.5 BUN 22 H Creatinine 1.31 H Glucose 132 H Magnesium 2.1 Total Bilirubin 0.6 AST 13 L ALT 19 Alkaline Phosphatase 107 <Hunter Baez - Last Filed: 01/17/23 16:25> Assessment and Plan - Plan Assessment: Chest pain rule out ACS Hypertension Hyperlipidemia Plan: Chest pain rule out ACS Trend troponins, monitor on telemetry, cardiology consult. Aspirin, statin ordered. Pain resolved at this time, last had stress test approximately 6 months ago, has never had a heart catheterization. Hypertension Hyperlipidemia Continue home medications. DVT PPX: Lovenox Code status: Full Discharge Plan: Home Plan to discharge in: 24 Hours - Advance Directives Does patient have a Living Will: No Does patient have a Durable POA for Healthcare: No - Code Status/Comfort Care Code Status Assessed: Yes (Full code) Critical Care: No Time Spent Managing Pts Care (In Minutes): 55 <Tolu Mobley - Last Filed: 01/17/23 03:26> Physician Review: Patient Assessed, Agree with Above Assessment and Plan <Hunter Baez - Last Filed: 01/17/23 16:25>
[2023-01-17 03:36] LABS: Thyroid Stimulating Hormone 1.61 uIU/mL (0.358-3.740); Troponin High Sensitivity 19.9 pg/mL (<58.9)
[2023-01-17 03:39] LABS: SARS-CoV-2 Antigen Rapid Res Negative (Negative)
[2023-01-17] MEDS ORDERED: ONDANSETRON 4 MG/2 ML VIAL IV PRN (04:51)
[2023-01-17 05:55] VITALS: BMI 36.1
[2023-01-17] MEDS ORDERED: POTASSIUM CL SA 10 MEQ TAB PO ONE (09:00)
[2023-01-17] MEDS: ASPIRIN EC 81 MG TAB PO SCH (09:00)
[2023-01-17] MEDS: ENOXAPARIN 40 MG/0.4 ML SQ SCH (09:30)
--- NOTE | 2023-01-17 14:15 | ECHO ---
HEIGHT: 5 ft 8 in WEIGHT: 238 lb 0 oz DATE OF STUDY: 01/17/[address]: Hunter Baez MD 2-DIMENSIONAL: YES M.MODE: YES DOPPLER: YES COLOR FLOW: YES TDS: PORTABLE: YES DEFINITY: BUBBLE STUDY: DIAGNOSIS: CHEST PAIN, HALLUCINATIONS CARDIAC HISTORY: CATHERIZATION: NO SURGERY: NO PROSTHETIC VALVE: NO PACEMAKER: NO MEASUREMENTS (cm) DIASTOLIC (NORMALS) SYSTOLIC (NORMALS) IVSd 1.1 (0.6-1.2) LA Diam 2.8 (1.9-4.0) LVEF 55-60% LVIDd 4.3 (3.5-5.7) LVIDs 3.2 (2.0-3.5) %FS 26% LVPWd 1.4 (0.6-1.2) Ao Diam 2.8 (2.0-3.7) 2 DIMENSIONAL ASSESSMENT: RIGHT ATRIUM: NORMAL LEFT ATRIUM: NORMAL RIGHT VENTRICLE: NORMAL LEFT VENTRICLE: NORMAL TRICUSPID VALVE: NORMAL MITRAL VALVE: NORMAL PULMONIC VALVE: NORMAL AORTIC VALVE: MILD AORTIC INSUFFICIENCY PERICARDIAL EFFUSION: NONE AORTIC ROOT: NORMAL LEFT VENTRICULAR WALL MOTION: NORMAL DOPPLER/COLOR FLOW: MILD AORTIC INSUFFICIENCY COMMENTS: 1. NORMAL LEFT VENTRICULAR EJECTION FRACTION 55-60% 2. NORMAL WALL MOTION 3. MILD AORTIC INSUFFICIENCY TECHNOLOGIST: KODY MAHER
--- NOTE | 2023-01-17 14:47 | RAD REPORT ---
EXAM DESCRIPTION: RAD - Chest Single View - 01/17/2023 12:19 am CLINICAL HISTORY: CHEST PAIN COMPARISON: None. FINDINGS: Single frontal radiograph view of the chest. Cardiomediastinal silhouette: Atherosclerotic calcification of thoracic aorta. Cardiomegaly. Lungs: No consolidation, pneumothorax, or pleural effusion. Bones: Degenerative change of the spine and shoulders. Upper abdomen: No abnormality identified. IMPRESSION: 1. No acute pulmonary process identified. 2. Cardiomegaly. Electronically signed by: Ag Dyer 01/17/2023 12:45 AM CDT Due to temporary technical issues with the PACS/Fluency reporting system, reports are being signed by the in house radiologists without review as a courtesy to insure prompt reporting. The interpreting radiologist is fully responsible for the content of the report.
--- NOTE | 2023-01-17 15:00 | RAD REPORT ---
EXAM DESCRIPTION: CT - Head C Spine Mpr Wo Con - 01/17/2023 6:29 am CLINICAL HISTORY: Vertigo, neck pain COMPARISON: 09/11/2022 TECHNIQUE: Axial CT of the head obtained from the skull apex to the skull base without contrast. Axi al CT images of the cervical spine obtained from the skull base through the thoracic inlet. Sagittal and coronal reformatted images available. This exam was performed according to our departmental dose- optimization program, which includes automated exposure control, adjustment of the mA and/or kV accor ding to patient size and/or use of iterative reconstruction technique. FINDINGS: CT head: No acute intracranial hemorrhage identified. No mass, mass effect, shift of the midline, abnormal ext ra-axial fluid collection or CT evidence of acute ischemic change identified. The ventricular system and sulcal spaces are mildly enlarged compatible with mild cerebral atrophy. Scattered areas of hyp odensity throughout the supratentorial white matter are nonspecific and may be related to chronic sma ll vessel ischemic change. The visualized paranasal sinuses and mastoid air cells are well aerated. No skull fracture identifi ed. Visualized orbits and globes are unremarkable. Atherosclerotic calcification of the intracranial internal carotid arteries. Cervical CT: Alignment of the cervical spine is maintained without evidence of subluxation. The atlantoaxial, at lantodental, and occipitoatlantal intervals are preserved. No fracture identified. Vertebral body h eight preserved. Prevertebral soft tissues are unremarkable. Mild multilevel loss of intervertebral disc height with endplate spondylosis, facet arthropathy, and uncovertebral spurring. Visualized skull base is intact. No fracture of the visualized facial bones. Visualized mastoid air c ells and paranasal sinuses are well aerated. Visualized thyroid is unremarkable. No cervical lymphadenopathy. No pneumothorax in the visualized lung apices. Atherosclerotic vascular calcification. IMPRESSION: 1. No acute intracranial abnormality. 2. No acute fracture or subluxation of the cervical spine. 3. Multilevel degenerative change of the cervical spine. Electronically signed by: Ag Dyer 01/17/2023 12:56 AM CDT Due to temporary technical issues with the PACS/Fluency reporting system, reports are being signed by the in house radiologists without review as a courtesy to insure prompt reporting. The interpreting radiologist is fully responsible for the content of the report.
--- NOTE | 2023-01-17 17:32 | EKG ---
Test Date: 2023-01-16 Test Time: 23:59:39 Information Systems Security Developer: PHILLIP MEASUREMENT RESULTS: Intervals: Rate: 61 LA: 124 QRSD: 98 QT: 406 QTc: 408 [place]: P: 29 LA: 124 QRS: 38 T: -12 INTERPRETIVE STATEMENTS: Normal sinus rhythm T wave abnormality, consider inferior ischemia Abnormal ECG Compared to ECG 08/17/2022 15:51:41 Possible ischemia now present Sinus bradycardia no longer present T-wave abnormality still present Electronically Signed On 01-17-23 17:30:57 CDT by Gilbert Abrams
[2023-01-17] MEDS ORDERED: HYDRALAZINE HCL 20 MG/ML VIAL IV ONE ×2 (17:49→17:56)
[2023-01-17] MEDS ORDERED: ATORVASTATIN 40 MG TAB PO SCH (21:00)
[2023-01-18 00:05] VITALS: O2SAT 97
[2023-01-18 04:47] LABS: Potassium 3.7 mEq/L (3.5-5.1)
[2023-01-18] MEDS ORDERED: HYDRALAZINE HCL 20 MG/ML VIAL IV ONE (06:25)
[2023-01-18] MEDS: ASPIRIN EC 81 MG TAB PO SCH (08:28)
[2023-01-18] MEDS: ENOXAPARIN 40 MG/0.4 ML SQ SCH (08:30)
--- NOTE | 2023-01-18 08:44 | P.DS ---
Admission Date: 01/17/23 Discharge Date: 01/18/23 Disposition: ROUTINE DISCHARGE Discharge Condition: GOOD Reason for Admission: Chest pain Consultations: 1. Cardiology 2. Psychiatry Hospital Course: DIAGNOSES: # Chest Pain - likely noncardiac # Hypertensive Urgency # Hyperlipidemia HOSPITAL COURSE: Mr. Jose oHyt is a 68 year old male with a past medical history significant for hypertension and hyperlipidemia who was admitted to the [facility] on 01/17/2023 for chest pain. He was admitted to the Medicine service. Upon further evaluation, his EKG was without STEMI criteria. His chest x-ray revealed, "1. No acute pulmonary process identified. 2. Cardiomegaly." His troponin trend was 21.5 -> 19.9 -> 20.0 -> 20.6. His transthoracic echocardiogram revealed, "1. normal left ventricular ejection fraction 55-60% 2. normal wall motion 3. mild aortic insufficiency." Cardiology was consulted and he was evaluated by Dr. Abrams. Since his troponin trend was flat and his chest pain had completely resolved, Dr. Abrams cleared him for discharge with outpatient follow-up. However, Dr. Abrams endorsed concern that he had been having hallucinations as an outpatient. He did not have any hallucinations while hospitalized. To further evaluate, Psychiatry was consulted. He was seen by Dr. Guidry this morning, who recommended no medication changes and outpatient follow-up. I saw him following his Psychiatric consult, and his blood pressure was quite elevated. He said that talking about his past divorce upset him, which seems to be the reason for his elevated blood pressures. He was monitored, and his blood pressure gradually decreased. He was calm at discharge and denied any hallucinations. He denied any suicidal or homicidal ideation, intention, or plan. On 01/18/2023, he was seen on morning rounds and deemed medically stable for discharge. He was discharged with instructions to schedule follow-up appointments with his PCP (Dr. Alfred), with Cardiology (Dr. Abrams), and with Psychiatry (Dr. Guidry). He was given the opportunity to ask questions and reported no further questions. Furthermore, all questions were answered to the best of my ability. A copy of this discharge summary will be sent to the above providers to facilitate continuity of care. Today, I personally spent 25 minutes on his case, of which greater than 50% of the time was spent in patient education, counseling, and coordination of care as described above. Vital Signs/Physical Exam: Temp Pulse Resp BP Pulse Ox 98.7 F 59 16 168/85 H 95 01/18/23 12:00 01/18/23 12:00 01/18/23 12:00 01/18/23 12:00 01/18/23 12:00 General: Alert, In no apparent distress, Oriented x3 HEENT: Atraumatic, Mucous membr. moist/pink, Sclerae nonicteric Neck: JVD not distended Respiratory: Clear to auscultation bilaterally, Normal air movement Cardiovascular: No edema, Regular rate/rhythm, Normal S1 S2, No gallops, No rubs, No murmurs Gastrointestinal: Normal bowel sounds, Soft and benign, Non-distended, No tenderness, No rebound, No guarding Musculoskeletal: No clubbing Integumentary: No rashes Neurological: Normal speech, Normal affect Laboratory Data at Discharge: WBC 9.60 thou/uL (4.3-10.9) 01/17/23 00:09 Hgb 13.6 g/dL (13.6-17.9) 01/17/23 00:09 Hct 39.2 % (39.6-49.0) L 01/17/23 00:09 Plt Count 172 thou/uL (152-406) 01/17/23 00:09 PT 11.7 SECONDS (9.5-12.5) 01/17/23 00:09 INR 1.06 01/17/23 00:09 Sodium 139 mEq/L (136-145) 01/18/23 03:30 Potassium 3.7 mEq/L (3.5-5.1) 01/18/23 03:30 BUN 20 mg/dL (7-18) H 01/18/23 03:30 Creatinine 1.11 mg/dL (0.70-1.30) 01/18/23 03:30 Glucose 114 mg/dL (74-106) H 01/18/23 03:30 Magnesium 2.1 mg/dL (1.6-2.4) 01/17/23 00:09 Total Bilirubin 0.6 mg/dL (0.2-1.0) 01/17/23 00:09 AST 13 U/L (15-37) L 01/17/23 00:09 ALT 19 U/L (16-61) 01/17/23 00:09 Alkaline Phosphatase 107 U/L (45-117) 01/17/23 00:09 Triglycerides 72 mg/dL (<150) 01/17/23 05:04 Cholesterol 114 mg/dL (<200) 01/17/23 05:04 HDL Cholesterol 48 mg/dL (40-60) 01/17/23 05:04 Cholesterol/HDL Ratio 2.38 01/17/23 05:04 Home Medications: Hydroxychloroquine [Plaquenil*] 200 mg PO BID 11/08/12 Ascorbic Acid [Vitamin C] 500 mg PO DAILY 04/02/14 Cholecalciferol (Vitamin D3) [Vitamin D] 1,000 unit PO BEDTIME 04/02/14 Gabapentin [Neurontin*] 400 mg PO BID 04/02/14 Glucosamine/Chondr Wong A Sod [Osteo Bi-Flex Caplet] 1 tab PO BEDTIME 04/02/14 Loratadine [Claritin*] 10 mg PO DAILY 04/02/14 Losartan/Hydrochlorothiazide [Losartan-Hctz 100-25 mg Tab] 1 each PO DAILY AFTER SUPPER 05/21/18 Potassium Chloride 10 meq PO DAILY 05/21/18 Simvastatin 10 mg PO BEDTIME 05/21/18 Zinc 1 tab PO BID 05/21/18 atenoloL [Tenormin*] 50 mg PO BID 05/21/18 Aspirin [Aspirin EC 81 MG] 81 mg PO DAILY #90 tablet. 07/13/18 Cyanocobalamin [Vitamin B-12*] 1,000 mcg PO DAILY 07/13/18 Famotidine [Pepcid AC] 20 mg PO BID #60 tablet 07/13/18 NIFEdipine [Nifedipine ER] 30 mg PO DAILY 07/13/18 Pyridoxine HCl (Vitamin B6) [Vitamin B-6] 100 mg PO DAILY 07/13/18 Selenium 200 mcg PO BEDTIME 07/13/18 Thiamine HCl [Vitamin B-1*] 100 mg PO DAILY 07/13/18 Levothyroxine [Synthroid*] 88 mcg PO DAILY 08/17/22 Pantoprazole [Protonix Tab*] 40 mg PO DAILY 08/17/22 Tamsulosin HCl [Flomax] 0.4 mg PO DAILY 08/17/22 Codeine/APAP [Tylenol #3*] 1 tab PO Q6H PRN #15 tab 08/29/22 Physician Discharge Instructions: 1. Please call and schedule a follow-up appointment with your PCP (Dr. Alfred) in 3-5 days 2. Please call and schedule a follow-up appointment with Cardiology (Dr. Abrams) in 5-7 days - He will schedule you for a stress test in his office 3. Please call and schedule a follow-up appointment with Psychiatry (Dr. Guidry) in 5-7 days Diet: AHA Activity: Ad adwoa Followup: David Alfred MD [Primary Care Provider] - Gilbert Abrams MD [ACTIVE - CAN ADMIT] - Buck Guidry [ACTIVE - CAN ADMIT] - Time spent managing pt's care (in minutes): 25
[2023-01-18] MEDS ORDERED: AMLODIPINE 5 MG TAB PO SCH (09:00)
[2023-01-18] MEDS ORDERED: POTASSIUM CL SA 10 MEQ TAB PO ONE (09:00)
[2023-01-18] MEDS ORDERED: atenoloL 50 MG TAB PO SCH (09:00)
[2023-01-18] MEDS ORDERED: TAMSULOSIN 0.4 MG SR CAP PO SCH (09:00)
[2023-01-18 12:05] VITALS: BP 168/85; TEMP 98.7
[2023-01-18] MEDS ORDERED: LOSARTAN/HCTZ 50-12.5 PO SCH (17:30)
== END 2023-01-18 12:09 | disposition home or self-care (01) ==
LOC: ER 23:27 → ERHOLD 01-17 03:50 → 4TH 01-17 05:03
PROVIDERS: ADMIT Internal Medicine; ATTEND Internal Medicine
DX: R07.9 Chest pain, unspecified (principal); I16.0 Hypertensive urgency; E78.5 Hyperlipidemia, unspecified; R53.1 Weakness; Z80.0 Family history of malignant neoplasm of digestive organs; Z82.49 Family history of ischemic heart disease and other diseases of the circulatory system; E66.9 Obesity, unspecified; Z68.36 Body mass index [BMI] 36.0-36.9, adult; Z20.822 Contact with and (suspected) exposure to COVID-19
CPT/HCPCS: 36415; 70450; 71045; 72125; 80048; 80061; 80076; 83735; 83880; 84439; 84443; 84484; 85025; 85610; 87811; 93005; 93306; 96374; 96375; 99285; J0360; J1650; J2405; J8597

== ENCOUNTER 2023-02-02 22:16 | Inpatient (IN) | payer OTHER ==
[2023-02-02 22:43] LABS: Absolute Lymphocytes (CBC) 1.5 K/uL (0.7-4.9); Hematocrit 37.9 % (39.6-49.0); Lymphocytes % 18.4 % (15.3-44.8); MCV 87.2 fL (80-100); MPV 7.7 fL (7.6-11.3); Platelets 155 thou/uL (152-406); RBC Red Blood Cell Count 4.35 M/uL (4.33-5.43)
[2023-02-02] MEDS ORDERED: HYDRALAZINE HCL 20 MG/ML VIAL ONE (23:19)
--- OUTSIDE RECORDS SUMMARY | 2023-02-02 23:21 | XMS REPORT | Continuity of Care Document ---
:1955 Author Organization [facility] t Address [address] [facility] [address] [place] [address] Care Team Providers Name Role Phone Jose Alfredo Prieto MD Primary Care Physician [phone] GUSTABO MARCH Attending Clinician Unavailable GUSTABO MARCH Attending Clinician Unavailable Nikunj Orozco RN Attending Clinician Unavailable Radiology Attending Clinician Unavailable RADIOLOGY Attending Clinician Unavailable GUSTABO MARCH Admitting Clinician Unavailable GUSTABO MARCH Admitting Clinician Unavailable Payers Payer Name Policy Type Policy Number Effective Date Expiration Date S ource [employer] MEDICARE [id number] 2021 2021 [facility] 00:00:00 00:00:00 AET[employer] MEDICARE 53 [id number] Common S pirit PPO - [facility] Problems Condition Condition Condition Status Onset [...] 02-23 on on 00:00: Hospita 00 l [id number] Phimosis Problem Comm on Spirit - [facility] [id number] Family Problem Common history of Spirit prostate - [facility] [id number] BPH loc w Problem Com mon urin Spirit obs/LUTS - [facility] Allergies, Adverse Reactions, Alerts Allergy Allergy Status Severity Reaction(s) Onset Inactive Treating Comm ents Source Name Type Date Date Clinician NO KNOWN Drug Active Univers ALLERGIE Class ity of [facility] Family History Family Member Diagnosis Comments Start Date Stop Date Source Natural mother Diabetes [facility] Natural sister Diabetes [facility] Social History Social Habit Start Date Stop Date Quantity Comments Source [facility] Gender identity [facility] History of Tobacco [facility] - Use [facility] Exposure to 2022-04-15 2022-04-25 Not sure [facility] SARS-CoV-2 (event) 00:00:00 12:03:00 Tobacco use and 2021-08-23 2021-08-23 Smokeless tobacco [facility] exposure 00:00:00 00:00:00 non-user History of Social 2016-11-29 2016-11-[address] function 00:00:00 00:00:00 Hospital Alcohol intake 2016-02-28 2016-02-28 Current drinker [facility] 00:00:00 00:00:00 of alcohol Hospital (finding) Alcohol Comment 2016-02-24 2016-02-24 occasional [facility] 00:[facility] 00:[facility]:00 Hospital Sex Assigned At [birth year] [facility] 00:00:[facility]:00 Hospital Smoking Status Start Date Stop Date Source Unknown if ever smoked [facility] Never Smoker [facility] Medications Ordered Filled Start Stop Current [...] 00 (two) l times a day. gabapentin 0 Yes 400mg Q.5D Take 400 Me [facility] (NEURONTIN) 6-[address] 400 MG 00:00: mouth 2 Hospita capsule 00 (two) l times a day. gabapentin 2015-0 Yes 400mg Q.5D Take 400 [facility] (NEURONTIN) 6-[address] 400 MG 00:00: mouth 2 Hospita capsule 00 (two) l times a day. gabapentin 2015-0 Yes 400mg Q.5D Take 400 Me [facility] (NEURONTIN) 6-[address] 400 MG 00:00: mouth 2 Hospita capsule 00 (two) l times a day. Vital Signs Vital Name Observation Time Observation Value Comments Source height 2022-07-12 15:30:00 64 [in_i] [facility] weight 2022-07-12 15:30:00 237.2 [lb_av] [facility] temperature 2022-07-12 15:30:00 98.6 [degF] [facility] bmi 2022-07-12 15:30:00 40.71 kg/m2 [facility] oximetry 2022-07-12 15:30:00 97 % [facility] respiratory rate 2022-07-12 15:30:00 18 /min Comm on [facility] blood pressure 2022-07-12 15:30:00 216 mm[Hg] [facility] systolic [facility] blood pressure 2022-07-12 15:30:00 98 mm[Hg] [facility] - diastolic [facility] Systolic blood 2022-04-25 18:59:00 191 mm[Hg] [...] CHEST 2 VW 2020-05-21 18:32:15 [facility] Plan of Care Planned Activity Planned Date Details Comments Source Future Scheduled 2023-01-18 [facility] Test 01:50:11 malignant neoplasm of colon (procedure) [code = 194760295] Future Scheduled 2023-01-18 [facility] Test 01:50:11 malignant neoplasm of colon (procedure) [code = 312566730] Future Scheduled 2023-01-18 [facility] Test 01:50:11 malignant neoplasm of colon (procedure) [code = 525604044] Future Scheduled 2023-01-18 COVID-19 VACCINE (#1) [facility] Test 01:50:11 [code = COVID-19 VACCINE (#1)] Future Scheduled 2023-01-18 [facility] Test 01:50:11 malignant neoplasm of colon (procedure) [code = 147634386] Future Scheduled 2023-01-18 [facility] Test 01:50:11 malignant neoplasm of colon (procedure) [code = 801272546] Future Scheduled 2023-01-18 SHINGLES VACCINES (1 [facility] Test 01:50:11 of 2) [code = SHINGLES VACCINES (1 of 2)] Future Scheduled 2023-01-18 65+ [facility]OCOCCAL [facility] Test 01:50:11 VACCINE (1 - PCV) [code = 65+ PNEUMOCOCCAL VACCINE (1 - PCV)] Future Scheduled 2023-01-18 INFLUENZA VACCINE [facility] Test 01:50:11 [code = INFLUENZA VACCINE] Future Scheduled 2022-12-25 COVID-19 VACCINE (#1) [facility] Test 22:34:02 [code = COVID-19 VACCINE (#1)] Future Scheduled 2022-12-25 [facility] Test 22:34:02 malignant neoplasm of colon (procedure) [code = 586731387] Future Scheduled 2022-12-25 [facility] Test 22:34:02 malignant neoplasm of colon (procedure) [code = 951781175] Future Scheduled 2022-12-25 SHINGLES VACCINES (1 Met [facility] Test 22:34:02 of 2) [code = SHINGLES VACCINES (1 of 2)] Future Scheduled 2022-12-25 65+ [facility]OCOCCAL [facility] Test 22:34:02 VACCINE (1 - PCV) [code = 65+ PNEUMOCOCCAL VACCINE (1 - PCV)] Future Scheduled 2022-12-25 INFLUENZA VACCINE [facility] Test 22:34:02 [code = INFLUENZA VACCINE] Future Scheduled 2022-12-25 [facility] Test 22:34:02 malignant neoplasm of colon (procedure) [code = 223015920] Future Scheduled 2022-12-25 [facility] Test 22:34:02 malignant neoplasm of colon (procedure) [code = 557929812] Future Scheduled 2022-12-25 [facility] Test 22:34:02 malignant neoplasm of colon (procedure) [code = 258709070] Future Scheduled 2022-07-02 COVID-19 VACCINE (#1) [facility] Test 12:43:13 [code = COVID-19 VACCINE (#1)] Future Scheduled 2022-07-02 COLONOSCOPY SCREENING [facility] Test 12:43:13 [code = COLONOSCOPY SCREENING] Future Scheduled 2022-07-02 SHINGLES VACCINES (1 Met [facility] Test 12:43:13 of 2) [code = SHINGLES VACCINES (1 of 2)] Future Scheduled 2022-07-02 65+ P[facility]UMOCOCCAL [facility] Test 12:43:13 VACCINE (1 - PCV) [code = 65+ PNEUMOCOCCAL VACCINE (1 - PCV)] Future Scheduled 2022-07-02 INFLUENZA VACCINE [facility] Test 12:43:13 [code = INFLUENZA VACCINE] Future Scheduled 2022-07-02 COVID-19 VACCINE (#1) [facility] Test 12:43:13 [code = COVID-19 VACCINE (#1)] Future Scheduled 2022-07-02 COLONOSCOPY SCREENING [facility] Test 12:43:13 [code = COLONOSCOPY SCREENING] Future Scheduled 2022-07-02 SHINGLES VACCINES (1 Met [facility] Test 12:43:13 of 2) [code = SHINGLES VACCINES (1 of 2)] Future Scheduled 2022-07-02 65+ P[facility]UMOCOCCAL [facility] Test 12:43:13 VACCINE (1 - PCV) [code = 65+ PNEUMOCOCCAL VACCINE (1 - PCV)] Future Scheduled 2022-07-02 INFLUENZA VACCINE [facility] Test 12:43:13 [code = INFLUENZA VACCINE] Future Scheduled 2022-06-22 COVID-19 VACCINE (#1) [facility] Test 13:11:51 [code = COVID-19 VACCINE (#1)] Future Scheduled 2022-06-22 COLONOSCOPY SCREENING [facility] Test 13:11:51 [code = COLONOSCOPY SCREENING] Future Scheduled 2022-06-22 SHINGLES VACCINES (1 Met [facility] Test 13:11:51 of 2) [code = SHINGLES VACCINES (1 of 2)] Future Scheduled 2022-06-22 65+ P[facility]UMOCOCCAL [facility] Test 13:11:51 VACCINE (1 - PCV) [code = 65+ PNEUMOCOCCAL VACCINE (1 - PCV)] Future Scheduled 2022-06-22 INFLUENZA VACCINE [facility] Test 13:11:51 [code = INFLUENZA VACCINE] Future Scheduled 2022-06-01 COVID-19 VACCINE (#1) [facility] Test 03:44:23 [code = COVID-19 VACCINE (#1)] Future Scheduled 2022-06-01 COLONOSCOPY SCREENING [facility] Test 03:44:23 [code = COLONOSCOPY SCREENING] Future Scheduled 2022-06-01 SHINGLES VACCINES (1 Met [facility] Test 03:44:23 of 2) [code = SHINGLES VACCINES (1 of 2)] Future Scheduled 2022-06-01 65+ P[facility]UMOCOCCAL [facility] Test 03:44:23 VACCINE (1 - PCV) [code = 65+ PNEUMOCOCCAL VACCINE (1 - PCV)] Future Scheduled 2022-06-01 INFLUENZA VACCINE [facility] Test 03:44:23 [code = INFLUENZA VACCINE] Future Scheduled 2022-05-16 HEPATITIS B VACCINES Met [facility] Test 12:40:21 (1 of 3 - 3-dose series) [code = HEPATITIS B VACCINES (1 of 3 - 3-dose series)] Future Scheduled 2022-05-16 COVID-19 VACCINE (#1) [facility] Hospital Test 12:40:21 [code = COVID-19 VACCINE (#1)] Future Scheduled 2022-05-16 COLONOSCOPY SCREENING [facility] Test 12:40:21 [code = COLONOSCOPY SCREENING] Future Scheduled 2022-05-16 SHINGLES VACCINES (1 Met [facility] Test 12:40:21 of 2) [code = SHINGLES VACCINES (1 of 2)] Future Scheduled 2022-05-16 65+ P[facility]UMOCOCCAL [facility] Test 12:40:21 VACCINE (1 - PCV) [code = 65+ PNEUMOCOCCAL VACCINE (1 - PCV)] Future Scheduled 2022-05-16 INFLUENZA VACCINE Method [facility] Test 12:40:21 [code = INFLUENZA VACCINE] Future Scheduled 2022-05-16 HEPATITIS B VACCINES Met [facility] Test 12:40:21 (1 of 3 - 3-dose series) [code = HEPATITIS B VACCINES (1 of 3 - 3-dose series)] Future Scheduled 2022-05-16 COVID-19 VACCINE (#1) [facility] Test 12:40:21 [code = COVID-19 VACCINE (#1)] Future Scheduled 2022-05-16 COLONOSCOPY SCREENING [facility] Test 12:40:21 [code = COLONOSCOPY SCREENING] Future Scheduled 2022-05-16 SHINGLES VACCINES (1 Met [facility] Test 12:40:21 of 2) [code = SHINGLES VACCINES (1 of 2)] Future Scheduled 2022-05-16 65+ [facility]OCOCCAL [facility] Test 12:40:21 VACCINE (1 - PCV) [code = 65+ PNEUMOCOCCAL VACCINE (1 - PCV)] Future Scheduled 2022-05-16 INFLUENZA VACCINE Method [facility] Test 12:40:21 [code = INFLUENZA VACCINE] Future Scheduled 2022-02-15 HEPATITIS B VACCINES Met [facility] Test 22:23:02 (1 of 3 - 3-dose series) [code = HEPATITIS B VACCINES (1 of 3 - 3-dose series)] Future Scheduled 2022-02-15 COVID-19 VACCINE (#1) [facility] Test 22:23:02 [code = COVID-19 VACCINE (#1)] Future Scheduled 2022-02-15 COLONOSCOPY SCREENING [facility] Test 22:23:02 [code = COLONOSCOPY SCREENING] Future Scheduled 2022-02-15 SHINGLES VACCINES (1 Met [facility] Test 22:23:02 of 2) [code = SHINGLES VACCINES (1 of 2)] Future Scheduled 2022-02-15 65+ PNEUMOCOCCAL Methodi [facility] Test 22:23:02 VACCINE (1 - PCV) [code = 65+ PNEUMOCOCCAL VACCINE (1 - PCV)] Future Scheduled 2022-02-15 INFLUENZA VACCINE Method [facility] Test 22:23:02 [code = INFLUENZA VACCINE] Future Scheduled 2022-02-15 HEPATITIS B VACCINES Met [facility] Test 22:23:02 (1 of 3 - 3-dose series) [code = HEPATITIS B VACCINES (1 of 3 - 3-dose series)] Future Scheduled 2022-02-15 COVID-19 VACCINE (#1) [facility] Test 22:23:02 [code = COVID-19 VACCINE (#1)] Future Scheduled 2022-02-15 COLONOSCOPY SCREENING [facility] Test 22:23:02 [code = COLONOSCOPY SCREENING] Future Scheduled 2022-02-15 SHINGLES VACCINES (1 Met [facility] Test 22:23:02 of 2) [code = SHINGLES VACCINES (1 of 2)] Future Scheduled 2022-02-15 65+ PNEUMOCOCCAL Methodi [facility] Test 22:23:02 VACCINE (1 - PCV) [code = 65+ PNEUMOCOCCAL VACCINE (1 - PCV)] Future Scheduled 2022-02-15 INFLUENZA VACCINE Method [facility] Test 22:23:02 [code = INFLUENZA VACCINE] Encounters Start End Encounter Admission Attending Care Care Encounter Source Date/Time Date/Time Type Type Clinicians Facility Department ID 2022-12-14 Outpatient [facility] [id number] [place] 01:57:31 [id number] [facility] 2022-07-12 Outpatient [facility] [id number] Common 14:39:02 [id number] [facility] 2022-07-10 Outpatient [facility] [id number] Common 13:23:02 [facility] 2022-07-06 Outpatient [facility] [id number] Common 15:54:02 [id number] [facility] 2022-06-06 Outpatient [facility] [id number] Common 14:38:03 [facility] 2022-05-16 Outpatient [facility] [id number] [place] 16:53:26 [id number] [facility] 2022-04-26 Outpatient [facility] [id number] [place] 14:57:53 [id number] [facility] 2022-04-21 Outpatient [facility] [id number] [place] 16:28:44 [id number] [facility] 2022-04-20 Outpatient [facility] [id number] Common 15:28:02 [facility] 2022-04-13 Outpatient [facility] [id number] [place] 22:41:31 [id number] [facility] 2022-04-06 Outpatient [facility] [id number] [place] 12:07:40 [facility] 2022-07-12 2022-07-12 OFFICE [facility] [id number] Co mmon 00:00:00 00:00:00 [facility] L[facility] - [facility] 2022-05-26 2022-05-26 Inpatient ANCA, [facility] [id number] [facility] 05:31:00 11:45:00 [facility] 2022-05-26 2022-05-26 Outpatient ANCA, [facility] [id number] [place] 07:45:00 07:45:00 [facility] 2022-04-25 2022-04-25 Office Anca, [facility] [id number] [place] 12:00:00 13:59:27 Visit [facility] [id number] [place] SANCHEZ 2 9.2.7.2.686 [id number] 5 2022-04-11 2022-04-11 Office Anca, [facility] [id number] [place] 14:20:00 15:43:47 Visit [facility] [id number] Anson SANCHEZ 2 9.2.7.2.686 [id number] 2021-12-21 2021-12-21 Outpatient ANCA, [facility] [id number] [facility] 13:48:00 23:59:00 [facility]EN ARM 2021-12-21 2021-12-21 Telephone Anca, [facility] [id number] [place] 00:00:00 00:00:00 [place] [facility] [id number] [address] 9.2.7.2.686 [id number] 5 2021-12-06 2021-12-06 Telephone Anca, [facility] [id number] [place] 00:00:00 00:00:00 [place] [facility] 350.1.13.58 He alth [place] [address] 9.2.7.2.686 [id number] 2021-10-10 2021-10-10 Telephone Anca, [facility] [id number] UT 00:00:00 00:00:00 [place] [facility] 350.1.13.58 He alth [place] [address] 9.2.7.2.686 [id number] 5 2021-10-05 2021-10-05 Telephone Anca, [facility] [id number] [place] 00:00:00 00:00:00 [place] [facility] 350.1.13.58 He alth [place] [address] 9.2.7.2.686 [id number] 2021-09-02 2021-09-02 Telephone Anca, [facility] [id number] [place] 00:00:00 00:00:00 [place] [facility] 350.1.13.58 He alth [place] [address] 9.2.7.2.686 [id number] 2021-08-26 2021-08-26 Telephone Anca, [facility] [id number] [place] 00:00:00 00:00:00 [place] [facility] 350.1.13.58 He alth [place] [address] 9.2.7.2.686 [id number] 2021-08-24 2021-08-24 Telephone Anca, [facility] [id number] [place] 00:00:00 00:00:00 [place] [facility] 350.1.13.58 Anson alth Juanita SANCHEZ 2 9.2.7.2.686 [id number] 5 2021-08-23 2021-08-23 Office Anca [facility] [id number] [place] 08:45:00 09:58:51 Visit [facility] 350.1.13.58 Anson alth Juanita SANCHEZ 2 9.2.7.2.686 [id number] 2021-08-22 2021-08-22 Telephone Nina Orozcoeleuterio [facility] 1.2.84 [id number] [place] 00:00:00 00:00:00 Nikunj Orozco 350.1.13.58 [facility] 9.2.7.2.686 [place] [id number] 2021-08-10 2021-08-10 Telephone Anca [facility] [id number] [place] 00:00:00 00:00:00 [place] [facility] 350.1.13.58 Anson alth Juanita SANCHEZ 2 9.2.7.2.686 [id number] 2020-05-21 2020-05-21 Hospital Radiology [facility] [id number] [facility] 12:15:00 23:59:00 Encounter [place] 350.1.13.10 ity [facility] 4.2.7.2.686 [facility] [id number] [facility] [address] 2020-05-21 2020-05-21 [facility] Radiology [facility] [id number] [id number] 12:15:00 23:59:00 Encounter [place] 350.1.13.10 [place] 4.2.7.2.686 [place] [id number] 2020-05-21 2020-05-21 Outpatient R RADIOLOGY [facility] [id number] [facility] 00:00:00 00:00:[address] [facility] Branch Results Test Description Test Time Test Comments Results Result Sourc e Comments XR CHEST 2 VW No evidence of acute U [facility] of 4 cardiopulmonary [place] [facility] 18:40:00 disease.2 VIEWS OF Branch THE CHEST HISTORY: Chest pain, unspecified type COMPARISON: 06/08/2017 TECHNIQUE: PA and lateral views of the chest. FINDINGS: The lungs are clear. There is no focal consolidation, pleural effusion orpneumothorax. The cardiomediastinal silhouette is within normal limits. ?No acute bonyabnormalities are seen. [facility], Radiant Results Inft User - 05/21/2020 12:41 PM CST2 VIEWS OF THE CHESTHISTORY: Chest pain, unspecified type COMPARISON: 06/08/2017TECHNIQUE: PA and lateral views of the chest.FINDINGS:The lungs are clear. There is no focal consolidation, pleural effusion orpneumothorax.The cardiomediastinal silhouette is within normal limits. No acute bonyabnormalities are seen.IMPRESSIONNo evidence of acute cardiopulmonary disease.
[2023-02-02 23:25] LABS: Albumin 3.4 g/dL (3.4-5.0); Bilirubin Total 0.5 mg/dL (0.2-1.0); Potassium 3.6 mEq/L (3.5-5.1); Protein, Total 6.4 g/dL (6.4-8.2); Troponin High Sensitivity 21.9 pg/mL (<58.9)
--- NOTE | 2023-02-03 01:53 | ER ---
Nurse's Notes [facility] Name: Jose Hoyt Age: 68 yrs Sex: Male : 1955 Arrival Date: 02/02/2023 Time: 22:16 Bed 5 Private MD: Diagnosis: Syncope;Visual hallucinations;Episodic lightheadedness Presentation: 02/02 22:22 Chief complaint: Patient states: dizziness and hallucinations. Pt states that he fell cm10 earlier and unknown if he hurt himself. Pt states that the dizziness began at 2100. Coronavirus screen: Vaccine status: Patient reports receiving the 2nd dose of the covid vaccine. Ebola Screen: Patient denies travel to an Ebola-affected area in the 21 days before illness onset. No symptoms or risks identified at this time. Initial Sepsis Screen: Does the patient meet any 2 criteria? No. Patient's initial sepsis screen is negative. Does the patient have a suspected source of infection? No. Patient's initial sepsis screen is negative. Risk Assessment: Do you want to hurt yourself or someone else? Patient reports no desire to harm self or others. Onset of symptoms was February 02, 2023. 22:22 Method Of Arrival: Wheelchair cm10 22:22 Acuity: SANDY 2 cm10 Historical: - Allergies: 22:24 No Known Allergies; cm10 - PMHx: 22:24 Diabetes - NIDDM; resolved; neuropathy; Hypertension; Anxiety; cm10 - PSHx: 22:24 penile sx; cm10 - Immunization history:: Adult Immunizations unknown. - Social history:: Smoking status: Patient denies any tobacco usage or history of. Screenin/19 02:35 [facility] ED Fall Risk Assessment (Adult) Score/Fall Risk Level 3 or more points = High as6 Risk. Abuse screen: Denies threats or abuse. Denies injuries from another. Nutritional screening: No deficits noted. Tuberculosis screening: No symptoms or risk factors identified. Assessment: 02/02 23:14 General: Appears in no apparent distress. comfortable, Behavior is calm, cooperative, jb4 appropriate for age. Pain: Denies pain. Neuro: Level of Consciousness is obeys commands, lethargic, Oriented to person, place, time, situation. Cardiovascular: Patient's skin is warm and dry. Respiratory: Airway is patent Respiratory effort is even, unlabored, Respiratory pattern is regular, symmetrical. GI: No signs and/or symptoms were reported involving the gastrointestinal system. : No signs and/or symptoms were reported regarding the genitourinary system. EENT: No signs and/or symptoms were reported regarding the EENT system. Derm: Skin is intact, Skin is pink, warm \T\ dry. Musculoskeletal: Circulation, motion, and sensation intact. Range of motion: intact in all extremities. 02/03 00:13 General: Reggie [phone]. as6 00:30 Reassessment: Pt resting in bed with eyes closed, respirations are even and unlabored jb4 with no s/s of pain or distress noted. 01:08 Reassessment: Patient appears in no apparent distress at this time. No changes from jb4 previously documented assessment. Patient and/or family updated on plan of care and expected duration. Pain level reassessed. Vital Signs: 02/02 22:22 BP 195 / 90; Pulse 57; Resp 18; Temp 98.7; Pulse Ox 97% ; Weight 107.05 kg; Height 5 cm10 ft. 4 in. ; 23:27 BP 173 / 95; Pulse 72; Resp 24; Pulse Ox 99% on R/A; jb4 02/03 01:00 BP 115 / 93; Pulse 50; Resp 24; Pulse Ox 99% on R/A; jb4 02/02 22:22 Body Mass Index 40.51 (107.05 kg, 162.56 cm) cm10 ED Course: 02/02 22:21 Patient arrived in ED. pf1 22:22 Mya Llanes MD is Attending Physician. sd2 22:24 Triage completed. cm10 22:24 Arm band placed on Patient placed in an exam room, on a stretcher. cm10 22:26 Naif Hood RN is Primary Nurse. as6 22:26 Inserted saline lock: 18 gauge in right antecubital area, using aseptic technique. as6 Blood collected. 22:44 Missed attempt(s): 18 gauge in left antecubital area. Bleeding controlled, band aid jb4 applied, catheter tip intact. 22:46 Initial lab(s) drawn, Lab(s) recollected, by me, sent to lab. IV discontinued, intact, jb4 bleeding controlled, No redness/swelling at site. Pressure dressing applied. Inserted saline lock: 18 gauge in left antecubital area, using aseptic technique. Blood collected. 22:57 XRAY Chest (1 view) In Process Unspecified. EDMS 23:49 CT Head Brain wo Cont In Process Unspecified. EDMS 02/03 01:51 Hunter Baez MD is Hospitalizing Provider. sd2 01:53 CT Chest For PE Angio In Process Unspecified. EDMS 02:35 Placed in gown. Bed in low position. Call light in reach. Side rails up X2. Provided as6 Education on: need for admit . Report given to Robin GARCIA. 02:35 No provider procedures requiring assistance completed. Patient admitted, IV remains in as6 place. Administered Medications: 02/02 23:12 Drug: hydrALAZINE IVP 10 mg Route: IVP; Site: left antecubital; jb4 02/03 02:31 Follow up: Response: No adverse reaction as6 Medication: 02:35 VIS not applicable for this client. as6 Outcome: 01:53 Decision to Hospitalize by Provider. sd2 02:36 Admitted to Med/surg accompanied by nurse, via wheelchair, room 204, with chart, Report as6 called to Robin GARCIA 02:36 Condition: stable 02:36 Instructed on the need for admit. 02:56 Patient left the ED. vc1 Signatures: Dispatcher [employer] EDMS David Kidd, RN RN jb4 Naif Hood RN RN as6 Dinah Agrawal RN RN 1 Mya Llanes MD MD sd2 Candida Hinton RN RN pf1 Padma Astorga RN RN cm10
--- NOTE | 2023-02-03 01:53 | EDPHYS ---
Physician Documentation [facility] Name: Jose Hoyt Age: 68 yrs Sex: Male : 1955 Arrival Date: 02/02/2023 Time: 22:16 Bed 5 Private MD: ED Physician Mya Llanes HPI: 02/02 22:27 This 68 yrs old Male presents to ER via Wheelchair with complaints of syncope. sd2 22:27 68 yo M presents with CC of syncope. Reports initially started at 9PM this evening sd2 while he was sitting on the couch watching TV when he "blacked out" for an unknown amount of time. Reports he then tried to stand up and felt dizzy and lightheaded and unstable on his feet. Reports he also started having visual hallucinations of a person behind the couch pulling closed a curtain on both sides. Reports similar symptoms "3 days ago" when he was hospitalized with a negative work up and Cardiology consult at that time. According to records, patient was discharged about a week ago but records do show reports of hallucinations and a workup for chest pain. Denies any unilateral weakness, numbness or facial droop. . Historical: - Allergies: 22:24 No Known Allergies; cm10 - PMHx: 22:24 Diabetes - NIDDM; resolved; neuropathy; Hypertension; Anxiety; cm10 - PSHx: 22:24 penile sx; cm10 - Immunization history:: Adult Immunizations unknown. - Social history:: Smoking status: Patient denies any tobacco usage or history of. ROS: 22:27 Constitutional: Negative for fever, chills, and weight loss, Eyes: Negative for injury, sd2 pain, redness, and discharge, Cardiovascular: Negative for chest pain, palpitations, and edema, Positive for syncope Respiratory: Negative for shortness of breath, cough, wheezing. Abdomen/GI: Negative for abdominal pain, nausea, vomiting, diarrhea. MS/Extremity: Negative for injury and deformity, Skin: Negative for injury, rash, and discoloration, Neuro: Negative for headache, numbness and tingling. 22:27 Psych: Negative for depression, anxiety, suicide ideation, homicidal ideation, and sd2 positive for hallucinations. Exam: 22:27 Constitutional: This is a well developed, well nourished patient who is awake, alert, sd2 and in no acute distress. Head/Face: Normocephalic, atraumatic. Eyes: EOMI, normal conjunctiva bilaterally Chest/axilla: Normal chest wall appearance and motion. Nontender with no deformity. Cardiovascular: Regular rate and rhythm with a normal S1 and S2. No gallops, murmurs, or rubs. 2+ distal pulses. Respiratory: Lungs have equal breath sounds bilaterally, clear to auscultation and percussion. No rales, rhonchi or wheezes noted. No increased work of breathing, no retractions or nasal flaring. Abdomen/GI: Soft, non-tender, with normal bowel sounds. No guarding or rebound. No evidence of tenderness throughout. Skin: Warm, dry with normal turgor. Normal color with no rashes, no lesions, and no evidence of cellulitis. MS/ Extremity: Pulses equal, no cyanosis. Neurovascular intact. Full, normal range of motion. Ambulatory without difficulty. Neuro: Awake and alert, GCS 15, oriented to person, place, time, and situation. Cranial nerves II-XII grossly intact. Motor strength 5/5 in all extremities. Sensory grossly intact. Cerebellar exam normal. Too unstable with transfer from wheelchair to stretcher to assess gait. Psych: Awake, alert, with orientation to person, place and time. Behavior, mood, and affect are within normal limits. 02/03 00:24 ECG was reviewed by the Attending Physician. Sinus bradycardia, rate 54, no STEMi sd2 criteria, TWI in lead III Vital Signs: 02/02 22:22 BP 195 / 90; Pulse 57; Resp 18; Temp 98.7; Pulse Ox 97% ; Weight 107.05 kg; Height 5 cm10 ft. 4 in. ; 23:27 BP 173 / 95; Pulse 72; Resp 24; Pulse Ox 99% on R/A; jb4 02/03 01:00 BP 115 / 93; Pulse 50; Resp 24; Pulse Ox 99% on R/A; jb4 02/02 22:22 Body Mass Index 40.51 (107.05 kg, 162.56 cm) cm10 MDM: 02/02 22:22 Patient medically screened. sd2 22:27 Differential Diagnosis Differential diagnosis includes but is not limited to: sd2 Vasovagal, cardiogenic, arrhythmia, anemia, electrolyte abnormality, ACS, orthostasis, dehydration among others. Data reviewed: vital signs, nurses notes, lab test result(s), EKG, radiologic studies. 02/03 01:50 Consideration of Admission/Observation Patient was admitted/placed on observation. sd2 Management of patient was discussed with the following: Hospitalist: Tolu Mobley NP. Care significantly affected by the following chronic conditions: Diabetes, Hypertension. Counseling: I had a detailed discussion with the patient and/or guardian regarding the historical points, exam findings, and any diagnostic results supporting the discharge/admit diagnosis, lab results, radiology results, the need for further work-up and treatment in the hospital. 02/02 22:26 Order name: CBC with Diff; Complete Time: 23:27 02/02 22:26 Order name: CMP; Complete Time: 23:27 02/02 22:26 Order name: Magnesium; Complete Time: 23:27 02/02 22:26 Order name: Troponin High Sensitivity; Complete Time: 23:27 02/02 22:26 Order name: BNP; Complete Time: 23:27 02/02 22:26 Order name: AMMONIA; Complete Time: 23:27 02/02 22:26 Order name: Procalcitonin; Complete Time: 00:23 02/02 22:26 Order name: Urinalysis w/ reflexes 02/02 22:26 Order name: Urine Drug Screen 02/02 23:04 Order name: D-Dimer; Complete Time: 00:30 02/02 22:26 Order name: XRAY Chest (1 view) 02/02 22:26 Order name: CT Head Brain wo Cont 02/03 00:32 Order name: CT Chest For PE Angio 02/02 22:26 Order name: EKG - Nurse/Tech; Complete Time: 22:30 sd2 Administered Medications: 02/02 23:12 Drug: hydrALAZINE IVP 10 mg Route: IVP; Site: left antecubital; jb4 02/03 02:31 Follow up: Response: No adverse reaction as6 Disposition Summary: 02/03/23 01:53 Hospitalization Ordered Hospitalization Status: Inpatient Admission sd2 Provider: Hunter Baez Location: Telemetry/MedSur (Inpatient) sd2 Condition: Stable sd2 Problem: an ongoing problem sd2 Symptoms: have improved sd2 Bed/Room Type: Standard sd2 Room Assignment: 204(02/03/23 02:24) cg Diagnosis - Syncope sd2 - Visual hallucinations sd2 - Episodic lightheadedness sd2 Forms: - Medication Reconciliation Form sd2 - SBAR form sd2 - Leadership Thank You Letter sd2 Signatures: Dispatcher [employer] EDTolu Nicholson, KASEY-C CALENDERER-Cla1 Giuliana Hoyt RN RN cg David Kidd RN RN jb4 Mya Llanes MD MD sd2 Padma Astorga RN RN cm10 Naif Hood RN as6 Corrections: (The following items were deleted from the chart) 02:24 01:53 sd2 cg 02:45 02/02 22:26 Orthostatics ordered. sd2 as6
[2023-02-03 01:55] LABS: Specific Gravity 1.013 (1.005-1.030); Urine Bilirubin NEGATIVE (Negative); Urine Blood Negative (Negative); Urine Clarity Clear (Clear); Urine Color Light-Yellow (Yellow); Urine Glucose NEGATIVE (Negative); Urine Protein NEGATIVE (Negative); Urine Urobilinogen Normal (Normal); Urine pH 5.5 (5.0-7.0)
[2023-02-03 02:17] LABS: Barbiturates NEGATIVE (NEGATIVE); Benzodiazepines NEGATIVE (NEGATIVE); Cocaine NEGATIVE (NEGATIVE); METHAMPHETAM NEGATIVE (NEGATIVE); Methadone NEGATIVE (NEGATIVE); Opiates NEGATIVE (NEGATIVE); Phencyclidine NEGATIVE (NEGATIVE); THC Cannibis NEGATIVE (NEGATIVE)
--- NOTE | 2023-02-03 02:25 | P.HP ---
Certification for Inpatient Patient admitted to: Observation With expected LOS: <2 Midnights Patient will require the following post-hospital care: None Practitioner: I am a practitioner with admitting privileges, knowledge of patient current condition, hospital course, and medical plan of care. Services: Services provided to patient in accordance with Admission requirements found in Title 42 Section 412.3 of the Code of Federal Regulations <LeandraTolu Lanza - Last Filed: 02/03/23 02:22> Patient History Date of Service: 02/03/23 Reason for admission: Syncope History of Present Illness: 68-year-old male with history of hypertension, hyperlipidemia presents to the emergency department with chief complaint of syncope, visual hallucinations. He reports he was sitting on his couch when he had a syncopal episodes he describes as lasting "seconds" where he blacked out, he is unsure of if he lost consciousness or not, he denies any prodrome, chest pain, lightheadedness or anything leading up to the event. He reports shortly after this he had a visual hallucination of something coming out from behind his TV from both sides like it was blowing in the wind. He had a recent admission for chest pain, at that time he had an echocardiogram performed which was normal he was seen by cardiology who recommended outpatient stress test, he was also evaluated by psychiatry as he was having visual hallucinations at that time as well he was advised to follow-up outpatient, he has not had the opportunity to do so thus far. He will be admitted under observation for syncope. The - Past Medical/Surgical History Diabetic: No -: HTN -: neuropathy -: Peripheral neuropathy -: obesity -: JHONNY -: hypercholesterolemia -: Visual hallucinations -: back surgery -: back cyst removal -: right knee sx Psychosocial/ Personal History: Patient lives at home, alone and is retired. - Family History Mother -: Heart disease, Diabetes, Cancer, Liver disease Notes: mother of liver cancer. Father -: Heart disease, Cancer Notes: Colon CA - Social History Smoking Status: Never smoker Alcohol use: No CD- Drugs: No Caffeine use: No Place of Residence: Home <Tolu Mobley - Last Filed: 02/03/23 02:22> Date of Service: 02/03/23 <Hunter Baez - Last Filed: 02/03/23 16:05> Allergies No Known Allergies Allergy (Verified 03/14/23 11:47) Home Medications: Simvastatin 10 mg PO BEDTIME 05/21/18 Aspirin [Aspirin EC 81 MG] 81 mg PO DAILY #90 tablet. 07/13/18 NIFEdipine [Nifedipine ER] 60 mg PO DAILY 07/13/18 Tamsulosin HCl [Flomax] 0.4 mg PO DAILY 08/17/22 Atenolol [Tenormin] 1.5 tab PO BID 02/03/23 Cetirizine HCl [Zyrtec] 10 mg PO DAILY PRN 02/03/23 Gabapentin 800 mg PO BEDTIME 02/03/23 Gabapentin [Neurontin] 400 mg PO 1400 02/03/23 Gabapentin [Neurontin] 400 mg PO DAILY 02/03/23 Losartan Potassium [Cozaar] 50 mg PO BID 02/03/23 Methyl Folate 1,000 mg PO DAILY 02/03/23 Tizanidine HCl [Zanaflex] 4 mg PO TID PRN 02/03/23 cloNIDine HCL [Clonidine HCl] 1 tab PO BEDTIME 02/03/23 levETIRAcetam [Levetiracetam] 500 mg PO BID 02/03/23 Review of Systems 10-point ROS is otherwise unremarkable Cardiovascular: Other (Syncope) <Tolu Mobley - Last Filed: 02/03/23 02:22> Physical Examination - Physical Exam General: Alert, In no apparent distress, Oriented x3 HEENT: Atraumatic, PERRLA, Mucous membr. moist/pink, EOMI, Sclerae nonicteric Neck: Supple, 2+ carotid pulse no bruit, No LAD, Without JVD or thyroid abn ormality Respiratory: Clear to auscultation bilaterally, Normal air movement Cardiovascular: Regular rate/rhythm, Normal S1 S2 Gastrointestinal: Normal bowel sounds, No tenderness Musculoskeletal: No tenderness Integumentary: No rashes Neurological: Normal gait, Normal speech, Normal strength at 5/5 x4 extr, Normal tone, Normal affect Lymphatics: No axilla or inguinal lymphadenopathy - Studies Laboratory Data (last 24 hrs) 02/02/23 02/02/23 22:46 22:34 WBC 8.00 Hgb 13.2 L Hct 37.9 L Plt Count 155 Sodium 140 Potassium 3.6 BUN 28 H Creatinine 1.40 H Glucose 167 H Magnesium 2.0 Total Bilirubin 0.5 AST 11 L ALT 15 L Alkaline Phosphatase 96 <Tolu Mobley - Last Filed: 02/03/23 02:22> - Studies Laboratory Data (last 24 hrs) 02/02/23 02/02/23 22:46 22:34 WBC 8.00 Hgb 13.2 L Hct 37.9 L Plt Count 155 Sodium 140 Potassium 3.6 BUN 28 H Creatinine 1.40 H Glucose 167 H Magnesium 2.0 Total Bilirubin 0.5 AST 11 L ALT 15 L Alkaline Phosphatase 96 <Hunter Baez - Last Filed: 02/03/23 16:05> Assessment and Plan - Plan Assessment: Syncope Visual hallucinations Hypertension Hyperlipidemia Plan: Syncope Recent echocardiogram within normal limits, previously evaluated by cardiology for chest pain recommended outpatient stress test. Initial cardiac enzymes negative, will trend troponins, monitor on telemetry. CT PE protocol performed negative for pulmonary embolism. Will obtain orthostatic vital signs. Continue gentle IV fluids. Visual hallucinations Previously evaluated by psychiatry, recommendation for outpatient evaluation. Patient has not had the opportunity to see outpatient psychiatry, counseled on need for follow-up. Has just had the 1 additional episode that happened this evening since his last hospitalization. Hypertension Hyperlipidemia Obtain and continue home medications as appropriate. DVT PPX: Lovenox Code status: Full Discharge Plan: Home Plan to discharge in: 24 Hours - Advance Directives Does patient have a Living Will: No Does patient have a Durable POA for Healthcare: No - Code Status/Comfort Care Code Status Assessed: Yes (Full code) Critical Care: No Time Spent Managing Pts Care (In Minutes): 55 <Tolu Mobley - Last Filed: 02/03/23 02:22> Physician Review: Patient Assessed, Agree with Above Assessment and Plan <Hunter Baez - Last Filed: 02/03/23 16:05>
[2023-02-03 03:12] VITALS: BMI 40.5
[2023-02-03] MEDS ORDERED: ONDANSETRON 4 MG/2 ML VIAL IV PRN (03:29)
[2023-02-03] MEDS ORDERED: ACETAMINOPHEN 500 MG TAB PO PRN (03:29)
[2023-02-03] MEDS ORDERED: NA CHLORIDE 0.9% 1,000 ML IV SCH (03:29)
[2023-02-03] MEDS ORDERED: NA CHLORIDE 0.9% 500 ML IV ONE (04:15)
[2023-02-03 04:56] LABS: Absolute Lymphocytes (CBC) 1.7 K/uL (0.7-4.9); Hematocrit 39.7 % (39.6-49.0); Lymphocytes % 20.1 % (15.3-44.8); MCV 86.4 fL (80-100); MPV 7.7 fL (7.6-11.3); Platelets 151 thou/uL (152-406)
[2023-02-03 05:26] LABS: Magnesium 2.1 mg/dL (1.6-2.4); Potassium 3.5 mEq/L (3.5-5.1); Thyroid Stimulating Hormone 2.58 uIU/mL (0.358-3.740)
[2023-02-03] MEDS: ENOXAPARIN 40 MG/0.4 ML SQ SCH (09:02)
--- NOTE | 2023-02-03 09:36 | RAD REPORT ---
EXAM DESCRIPTION: RAD - Chest Single View - 02/02/2023 10:59 pm CLINICAL HISTORY: Syncope.. TECHNIQUE: AP portable chest x-ray upright on 02/02/2023, at 22: 53. COMPARISON: 01/17/2023, at 00: 16. FINDINGS: Heart: Normal size and configuration. Mediastinal Structures: Normal and midline.. Lung [place]: No active disease. Pulmonary Vascularity: Normal. Pleural Space: No active disease. Bony Structures: Normal. IMPRESSION: Normal study. Electronically signed by: Edwardo Hansen MD 02/02/2023 11:18 PM CDT Due to temporary technical issues with the PACS/Fluency reporting system, reports are being signed by the in house radiologists without review as a courtesy to insure prompt reporting. The interpreting radiologist is fully responsible for the content of the report.
--- NOTE | 2023-02-03 10:34 | RAD REPORT ---
EXAM DESCRIPTION: CT - Head Brain Wo Cont - 02/03/2023 6:10 am CLINICAL HISTORY 68 years Male FALL, CONFUSED, DIZZINESS TECHNIQUE: Contiguous axial CT images obtained through the brain without IV contrast. This CT exam was performed according to our departmental dose-optimization program, which includes on e or more of the following dose reduction techniques: automated exposure control, adjustment of the m A and/or kV according to patient size, and/or use of iterative reconstruction technique. COMPARISON: No prior exams provided for comparison. FINDINGS: There is no acute skull fracture, parenchymal hemorrhage, extraaxial collection, or acut e transcortical infarction. Patchy foci of low attenuation within the periventricular white matter are most compatible with chron ic microvascular disease. There are deep matter lacunes and moderate diffuse volume loss without ma ss effect or midline shift. The paranasal sinuses and mastoid air cells are clear. IMPRESSION: No acute intracranial abnormality. Patchy chronic microvascular changes and volume loss. Electronically signed by: Monica Fisher MD 02/03/2023 12:26 AM CDT Due to temporary technical issues with the PACS/Fluency reporting system, reports are being signed by the in house radiologists without review as a courtesy to insure prompt reporting. The interpreting radiologist is fully responsible for the content of the report.
--- NOTE | 2023-02-03 11:26 | RAD REPORT ---
EXAM DESCRIPTION: CT - Chest For Pe Angio - 02/03/2023 6:16 am CLINICAL HISTORY: Syncope TECHNIQUE: Contiguous axial images obtained through the chest during angiographic phase following th e uneventful administration of IV contrast. Sagittal and coronal reformatted images were provided. 3- D MIP reformatted images were provided. This exam was performed according to our departmental dose-optimization program, which includes autom ated exposure control, adjustment of the mA and/or kV according to patient size and/or use of iterati ve reconstruction technique. COMPARISON: No prior exams provided for comparison. FINDINGS: Diagnostic quality: There is adequate opacification of the pulmonary arterial tree. Lungs: No focal consolidation. Airways are patent. Images degraded by respiratory motion artifact. Pleura: No effusion. No pneumothorax. Heart and pericardium: Mild cardiomegaly. No pericardial effusion. Mediastinum and stefany: No pathologically enlarged lymph nodes. Lower neck and chest wall: Unremarkable Vessels: No evidence of acute pulmonary emboli. Small linear filling defect within left upper lobe pulmonary arteries suggests fibrotic sequela from chronic PTE. No thoracic aortic aneurysm. Upper abdomen: Unremarkable Bones: Unremarkable IMPRESSION: 1. No evidence of acute pulmonary emboli. 2. Small linear filling defect within left upper lobe pulmonary artery suggests fibrotic sequela fr om chronic PTE. 3. Mild cardiomegaly 4. Images degraded by respiratory motion artifact. Electronically signed by: Mason Bee MD 02/03/2023 2:51 AM CDT Due to temporary technical issues with the PACS/Fluency reporting system, reports are being signed by the in house radiologists without review as a courtesy to insure prompt reporting. The interpreting radiologist is fully responsible for the content of the report.
[2023-02-03] MEDS: HYDRALAZINE HCL 20 MG/ML VIAL IV PRN (12:28)
--- NOTE | 2023-02-03 16:10 | P.PN ---
Subjective Date of Service: 02/04/23 Chief Complaint: Syncope No acute events overnight. He denies any recurrent episodes of syncope or hallucination. Spoke with Dr. Ayoub, who recommended MRI brain, which cannot be obtained until tomorrow. He denies any chest pain or palpitations. Review of Systems 10-point ROS is otherwise unremarkable Physical Examination - Vital Signs Temperature: 98.0 F Blood Pressure: 217/98 Pulse: 65 Respirations: 18 Pulse Ox (%): 95 - Physical Exam General: Alert, In no apparent distress, Oriented x3 HEENT: Atraumatic, Mucous membr. moist/pink, Sclerae nonicteric Neck: JVD not distended Respiratory: Clear to auscultation bilaterally, Normal air movement Cardiovascular: No edema, Regular rate/rhythm, Normal S1 S2, No gallops, No rubs, No murmurs Gastrointestinal: Normal bowel sounds, Soft and benign, Non-distended, No tenderness, No rebound, No guarding Musculoskeletal: No clubbing Integumentary: No rashes Neurological: Normal speech, Normal affect - Studies Laboratory Data (last 24 hrs) 02/02/23 02/02/23 22:46 22:34 WBC 8.00 Hgb 13.2 L Hct 37.9 L Plt Count 155 Sodium 140 Potassium 3.6 BUN 28 H Creatinine 1.40 H Glucose 167 H Magnesium 2.0 Total Bilirubin 0.5 AST 11 L ALT 15 L Alkaline Phosphatase 96 Assessment And Plan - Plan # Syncope with Visual Hallucinations Differential diagnoses include, but are not limited to, vasovagal syncope, orthostatic hypotension, cardiac etiology (i.e. arrhythmia, valvulopathy), and neurogenic etiologies (i.e. seizure). - Consulted Neurology and spoke with Dr. Ayoub - recommendations appreciated - Recommended MRI brain, which cannot be obtained until 02/05/2023 - UDS negative - Orthostatic vital signs requested - Telemetry - EKG, serial troponin (21.9 -> 23.0 -> 23.1) - Transthoracic echocardiogram (01/17/2023) = "1. normal left ventricular ejection fraction 55-60% 2. normal wall motion 3. mild aortic insufficiency" - Noncontrast CT head = "no acute intracranial abnormality. Patchy chronic microvascular changes and volume loss." # Hypertensive Urgency - Continue home atenolol, clonidine, losartan, nifedipine - PRN hydralazine # Elevated D-Dimer - D-Dimer = 658 - CT chest angiogram = "1. No evidence of acute pulmonary emboli. 2. Small linear filling defect within left upper lobe pulmonary artery suggests fibrotic sequela from chronic PTE. 3. Mild cardiomegaly 4. Images degraded by respiratory motion artifact" - Bilateral lower extremity Doppler = "no DVT in either lower extremity." # Hyperlipidemia - Continue home simvastatin # Morbid Obesity - BMI 40.5 kg/m2 - Lifestyle modifications Hunter Baez M.D.
[2023-02-03] MEDS: cloNIDine HCL 0.1 MG TAB PO SCH ×2 (16:37→21:24)
[2023-02-03] MEDS ORDERED: HOME MED 1 EA UNK (Simvastatin [Simvastatin] 10 MG Tablet) PO SCH (21:00)
[2023-02-03] MEDS: atenoloL 25 MG TAB PO SCH (21:22)
[2023-02-03] MEDS: LOSARTAN POTASSIUM 50 MG TABLET PO SCH (21:24)
[2023-02-03] MEDS: ATORVASTATIN 10 MG TAB PO SCH (21:24)
[2023-02-03] MEDS: levETIRAcetam 500 MG TAB PO SCH (21:25)
--- NOTE | 2023-02-03 21:46 | RAD REPORT ---
EXAM DESCRIPTION: US - Extrem Venous W Compress Ole - 02/03/2023 8:43 pm CLINICAL HISTORY: Elevated D-dimer COMPARISON: None. TECHNIQUE: Real-time sonographic evaluation of the bilateral lower extremity deep venous systems was performed. FINDINGS: Normal compressibility, flow augmentation, phasic flow and spontaneous flow is identified in both the left and right lower extremity deep venous systems. No intraluminal filling defects seen. IMPRESSION: No DVT in either lower extremity.
[2023-02-04 03:32] LABS: Potassium 3.4 mEq/L (3.5-5.1)
[2023-02-04] MEDS: atenoloL 25 MG TAB PO SCH ×2 (09:00→21:50)
[2023-02-04] MEDS ORDERED: NIFEDIPINE XL 30 MG TABLET PO SCH (09:00)
[2023-02-04] MEDS: NIFEDIPINE XL 60 MG TABLET PO SCH (09:54)
[2023-02-04] MEDS: ENOXAPARIN 40 MG/0.4 ML SQ SCH (09:54)
[2023-02-04] MEDS: TAMSULOSIN 0.4 MG SR CAP PO SCH (09:55)
[2023-02-04] MEDS: LOSARTAN POTASSIUM 50 MG TABLET PO SCH ×2 (09:55→21:51)
[2023-02-04] MEDS: levETIRAcetam 500 MG TAB PO SCH ×2 (09:55→21:51)
[2023-02-04] MEDS: ASPIRIN EC 81 MG TAB PO SCH (09:55)
[2023-02-04] MEDS: HYDRALAZINE HCL 20 MG/ML VIAL IV PRN (13:31)
--- NOTE | 2023-02-04 19:00 | P.PN ---
Date of Service: 02/05/23 Subjective: ROS: 10 point ROS as noted above, otherwise negative Physical Exam: Gen: Alert, Oriented, NAD HEENT: normal conjunctiva, sclera anicteric CV: regular rate & rhythm, no edema Pulm: non-labored respirations on room air Abd: soft, nontender, nondistended MSK: no joint tenderness Integumentary: No rashes Neuro: normal speech, normal affect Problem List: 1. Syncope with Visual Hallucinations 2. Hypertensive Urgency 3. Elevated D-Dimer 4. Hyperlipidemia 5. Morbid Obesity - BMI 40.5 kg/m2 PLAN Neurology consulted MRI brain ordered UDS negative Orthostatic vitals negative Monitor on telemetry, troponins negative x3 Echo (01/17/23): 55-60% EF, mild aortic insufficiency D-Dimer: 658 CTA chest(02/03): No PE, Small linear filling defect within left upper lobe pulmonary artery suggests fibrotic sequela from chronic PTE. Mild cardiomegaly no DVT seen on doppler Continue home simvastatin Continue home atenolol, clonidine, losartan, nifedipine PRN hydralazine VTE: Lovenox Code: Full Dispo: Home
[2023-02-04] MEDS: cloNIDine HCL 0.1 MG TAB PO SCH (21:50)
[2023-02-04] MEDS: ATORVASTATIN 10 MG TAB PO SCH (21:51)
[2023-02-04 22:51] VITALS: O2SAT 95
[2023-02-05 03:39] LABS: Potassium 3.3 mEq/L (3.5-5.1)
[2023-02-05] MEDS: TAMSULOSIN 0.4 MG SR CAP PO SCH (08:46)
[2023-02-05] MEDS: levETIRAcetam 500 MG TAB PO SCH ×2 (08:46→20:33)
[2023-02-05] MEDS: NIFEDIPINE XL 60 MG TABLET PO SCH (08:46)
[2023-02-05] MEDS: atenoloL 25 MG TAB PO SCH ×2 (08:46→20:32)
[2023-02-05] MEDS: ENOXAPARIN 40 MG/0.4 ML SQ SCH (08:47)
[2023-02-05] MEDS: ASPIRIN EC 81 MG TAB PO SCH (08:47)
[2023-02-05] MEDS: LOSARTAN POTASSIUM 50 MG TABLET PO SCH ×2 (08:47→20:31)
--- NOTE | 2023-02-05 13:13 | RAD REPORT ---
EXAM DESCRIPTION: MRI - Brain W/Wo Cont - 02/05/2023 1:01 pm CLINICAL HISTORY: Syncope with hallucinations COMPARISON: head CT January 2023 TECHNIQUE: Axial, sagittal, and coronal magnetic images of the brain were obtained. 20 cc MultiHance administered intravenously FINDINGS: Mild to moderate signal within periventricular, deep and subcortical white matter probably ischemic changes secondary to small vessel disease The ventricles are normal in caliber. Diffusion-weighted/ ADC mapping sequences do not demonstrate a 10 x 3 millimeter area of abnormal sig nal within the deep white matter of right anterior right parietal lobe consistent with acute infarct No abnormal enhancement within the brain is seen. An extra-axial fluid collection is not noted. 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
--- NOTE | 2023-02-05 18:05 | EKG ---
Test Date: 2023-02-02 Test Time: 22:26:43 [employer]: MINESH MEASUREMENT RESULTS: Intervals: Rate: 54 TX: 130 QRSD: 94 QT: 436 QTc: 413 [place]: P: 49 TX: 130 QRS: 66 T: 16 INTERPRETIVE STATEMENTS: Sinus bradycardia Otherwise normal ECG Compared to ECG 01/16/2023 23:59:39 Sinus rhythm no longer present T-wave abnormality no longer present Possible ischemia no longer present Electronically Signed On 02-05-23 17:58:56 CDT by Gilbert Abrams
[2023-02-05] MEDS: cloNIDine HCL 0.1 MG TAB PO SCH (20:31)
[2023-02-05] MEDS: ATORVASTATIN 10 MG TAB PO SCH (20:32)
[2023-02-06] MEDS: HYDRALAZINE HCL 20 MG/ML VIAL IV PRN (05:01)
[2023-02-06] MEDS: levETIRAcetam 500 MG TAB PO SCH (08:02)
[2023-02-06] MEDS: ASPIRIN EC 81 MG TAB PO SCH (08:02)
[2023-02-06] MEDS: atenoloL 25 MG TAB PO SCH (08:03)
[2023-02-06] MEDS: LOSARTAN POTASSIUM 50 MG TABLET PO SCH (08:03)
[2023-02-06] MEDS: TAMSULOSIN 0.4 MG SR CAP PO SCH (08:03)
[2023-02-06] MEDS: NIFEDIPINE XL 60 MG TABLET PO SCH (08:03)
[2023-02-06] MEDS: ENOXAPARIN 40 MG/0.4 ML SQ SCH (08:03)
[2023-02-06 13:37] VITALS: BP 132/69; TEMP 98
== END 2023-02-06 12:56 | disposition home or self-care (01) | DRG 312 ==
LOC: ER 22:16 → 2ND 02-03 02:17 → OBSVTOIN 02-05 15:13
PROVIDERS: ADMIT Internal Medicine; ATTEND Hospitalist
DX: R55 Syncope and collapse (principal); Z68.41 Body mass index [BMI] 40.0-44.9, adult; E66.01 Morbid (severe) obesity due to excess calories; I16.0 Hypertensive urgency; I10 Essential (primary) hypertension; E11.42 Type 2 diabetes mellitus with diabetic polyneuropathy; E78.00 Pure hypercholesterolemia, unspecified; I35.1 Nonrheumatic aortic (valve) insufficiency; R44.1 Visual hallucinations; Z60.2 Problems related to living alone; Z79.82 Long term (current) use of aspirin; Z79.899 Other long term (current) drug therapy
CPT/HCPCS: 36415; 70450; 70553; 71045; 71275; 80048; 80053; 80307; 81003; 82140; 83735; 83880; 84145; 84439; 84443; 84484; 85025; 85379; 93005; 93970; 96374; 97116; 97161; 97530; 99285; A9577; G0378; J0360; J1650; J2405; J7030; J7040; Q9967

== ENCOUNTER 2023-02-16 22:43 | Inpatient (IN) | payer OTHER ==
--- OUTSIDE RECORDS SUMMARY | 2023-02-16 22:48 | XMS REPORT | Continuity of Care Document ---
:1955 Author Organization [facility] t Address [address] [place] [address] [place] [id number] Care Team Providers Name Role Phone Jose Alfredo Prieto MD Primary Care Physician [phone] GUSTABO MARCH Attending Clinician Unavailable GUSTABO MARCH Attending Clinician Unavailable Nikunj Orozco RN Attending Clinician Unavailable Radiology Attending Clinician Unavailable RADIOLOGY Attending Clinician Unavailable GUSTABO MARCH Admitting Clinician Unavailable GUSTABO MARCH Admitting Clinician Unavailable Payers Payer Name Policy Type Policy Number Effective Date Expiration Date S ource [employer] MEDICARE [id number] 2021 2021 [facility] 00:00:00 00:00:00 [employer] MEDICARE 53 [id number] Common S pirit PPO - [facility] Problems Condition Condition Condition Status Onset Resolution [...] 02-23 on on 00:00: Hospita 00 l [id number] Phimosis Problem Comm on Spirit - [facility] [id number] Family Problem Common history of Spirit prostate - [facility] cancer [facility] [id number] BPH loc w Problem Com mon urin Spirit obs/LUTS - [facility] Allergies, Adverse Reactions, Alerts Allergy Allergy Status Severity Reaction(s) Onset Inactive Treating Comm ents Source Name Type Date Date Clinician NO KNOWN Drug Active Univers ALLERGIE Class ity of S [facility] Family History Family Member Diagnosis Comments Start Date Stop Date Source Natural mother Diabetes [facility] Natural sister Diabetes [facility] Social History Social Habit Start Date Stop Date Quantity Comments Source Sexual orientation [facility] Gender identity [facility] History of Tobacco Common Spirit - Use [facility] Exposure to 2022-04-15 2022-04-25 Not sure [facility] SARS-CoV-2 (event) 00:00:00 12:03:00 Tobacco use and 2021-08-23 2021-08-23 Smokeless tobacco [facility] exposure 00:00:00 00:00:00 non-user History of Social 2016-11-29 2016-11-[address] function 00:00:00 00:00:00 Hospital Alcohol intake 2016-02-28 2016-02-28 Current drinker [facility] 00:00:00 00:00:00 of alcohol Hospital (finding) Alcohol Comment 2016-02-24 2016-02-24 occasional [facility] 00:00:00 00:00:00 Hospital Sex Ass[birth year] At [birth year] [facility] 00:00:00 00:00:00 Hospital Smoking Status Start Date Stop Date Source Unknown if ever smoked [facility] Never Smoker [facility] - [facility] Medications Ordered Filled Start Stop Current Ordering Indication Dosage Frequency Signature Comments Components Source Medication Medication Date Date Medication? Clinician (SIG) Name Name Flomax 0.4 Flomax 0.4 2022-0 2022- No 1{capsu QD Flomax 0.4 MG MG [...] 0 Yes nifedipine [facility] (Adalat 3-08 [...] mouth. Health split 09:14: tablet 51 gabapentin Yes gabapentin [facility] (Neurontin) 3-08 400 mg Health 400 MG 09:14: capsule capsule 51 atenolol 0 Yes atenolol [place] (Tenormin) 3-08 25 mg Health 25 MG 09:14: tablet tablet 51 hydroxychlo Yes hydroxychl [facility] roquine 08 oroquine Health (Plaquenil) 09:14: 200 mg 200 [...] Comments Source height 2022-07-12 15:30:00 64 [in_i] [facility] weight 2022-07-12 15:30:00 237.2 [lb_av] [facility] temperature 2022-07-12 15:30:00 98.6 [degF] [facility] bmi 2022-07-12 15:30:00 40.71 kg/m2 [facility] oximetry 2022-07-12 15:30:00 97 % [facility] respiratory rate 2022-07-12 15:30:00 18 /min [facility] blood pressure 2022-07-12 15:30:00 216 mm[Hg] [facility] - systolic [facility] blood pressure 2022-07-12 15:30:00 98 mm[Hg] [facility] - diastolic [facility] Systolic blood 2022-04-25 18:59:00 191 mm[Hg] [facility] [...] CHEST 2 VW 2020-05-21 18:32:15 David Alfred [facility] Plan of Care Planned Activity Planned Date Details Comments Source Future Scheduled 2023-02-11 [facility] Test 18:13:39 malignant neoplasm of colon (procedure) [code = 450335133] Future Scheduled 2023-02-11 [facility] Test 18:13:39 malignant neoplasm of colon (procedure) [code = 637951919] Future Scheduled 2023-02-11 [facility] Test 18:13:39 malignant neoplasm of colon (procedure) [code = 987931612] Future Scheduled 2023-02-11 COVID[facility]19 [facility] Test 18:13:39 [code = COVID-19 VACCINE (#1)] Future Scheduled 2023-02-11 [facility] Test 18:13:39 malignant neoplasm of colon (procedure) [code = 959248329] Future Scheduled 2023-02-11 [facility] Test 18:13:39 malignant neoplasm of colon (procedure) [code = 403584981] Future Scheduled 2023-02-11 SHINGLES VACCINES (1 [facility] Test 18:13:39 of 2) [code = SHINGLES VACCINES (1 of 2)] Future Scheduled 2023-02-11 65+ PNEUMOCOCCAL [facility] Test 18:13:39 VACCINE (1 - PCV) [code = 65+ PNEUMOCOCCAL VACCINE (1 - PCV)] Future Scheduled 2023-02-11 INFLUENZA VACCINE (#1) [facility] Test 18:13:39 [code = INFLUENZA VACCINE (#1)] Future Scheduled 2023-01-18 COVID-19 VACCINE (#1) [facility] 01:50:11 [code = COVID-19 VACCINE (#1)] Future Scheduled 2023-01-18 [facility] Test 01:50:11 malignant neoplasm of colon (procedure) [code = 421183632] Future Scheduled 2023-01-18 [facility] Test 01:50:11 malignant neoplasm of colon (procedure) [code = 968474650] Future Scheduled 2023-01-18 SHINGLES VACCINES (1 [facility] Test 01:50:11 of 2) [code = SHINGLES VACCINES (1 of 2)] Future Scheduled 2023-01-18 65+ [facility]OCOCCAL [facility] Test 01:50:11 VACCINE (1 - PCV) [code = 65+ PNEUMOCOCCAL VACCINE (1 - PCV)] Future Scheduled 2023-01-18 INFLUENZA VACCINE [facility] Test 01:50:11 [code = INFLUENZA VACCINE] Future Scheduled 2023-01-18 [facility] Test 01:50:11 malignant neoplasm of colon (procedure) [code = 515490577] Future Scheduled 2023-01-18 [facility] Test 01:50:11 malignant neoplasm of colon (procedure) [code = 526632286] Future Scheduled 2023-01-18 [facility] Test 01:50:11 malignant neoplasm of colon (procedure) [code = 243984918] Future Scheduled 2022-12-25 [facility] Test 22:34:02 malignant neoplasm of colon (procedure) [code = 081071394] Future Scheduled 2022-12-25 [facility] Test 22:34:02 malignant neoplasm of colon (procedure) [code = 483862272] Future Scheduled 2022-12-25 [facility] Test 22:34:02 malignant neoplasm of colon (procedure) [code = 431596900] Future Scheduled 2022-12-25 COVID-19 VACCINE (#1) [facility] Test 22:34:02 [code = COVID-19 VACCINE (#1)] Future Scheduled 2022-12-25 [facility] Test 22:34:02 malignant neoplasm of colon (procedure) [code = 137381428] Future Scheduled 2022-12-25 [facility] Test 22:34:02 malignant neoplasm of colon (procedure) [code = 911454359] Future Scheduled 2022-12-25 SHINGLES VACCINES (1 Met [facility] Test 22:34:02 of 2) [code = SHINGLES VACCINES (1 of 2)] Future Scheduled 2022-12-25 65+ PNEUMOCOCCAL [facility] Test 22:34:02 VACCINE (1 - PCV) [code = 65+ PNEUMOCOCCAL VACCINE (1 - PCV)] Future Scheduled 2022-12-25 INFLUENZA VACCINE [facility] Hospital Test 22:34:02 [code = INFLUENZA VACCINE] Future Scheduled 2022-07-02 COVID-19 VACCINE (#1) [facility] Hospital Test 12:43:13 [code = COVID-19 VACCINE (#1)] Future Scheduled 2022-07-02 COLONOSCOPY SCREENING [facility] Hospital Test 12:43:13 [code = COLONOSCOPY SCREENING] Future Scheduled 2022-07-02 SHINGLES VACCINES (1 [facility] Test 12:43:13 of 2) [code = SHINGLES VACCINES (1 of 2)] Future Scheduled 2022-07-02 65+ PNEUMOCOCCAL [facility] Test 12:43:13 VACCINE (1 - PCV) [code = 65+ PNEUMOCOCCAL VACCINE (1 - PCV)] Future Scheduled 2022-07-02 INFLUENZA VACCINE [facility] Test 12:43:13 [code = INFLUENZA VACCINE] Future Scheduled 2022-07-02 COVID-19 VACCINE (#1) [facility] Test 12:43:13 [code = COVID-19 VACCINE (#1)] Future Scheduled 2022-07-02 COLONOSCOPY SCREENING [facility] Hospital Test 12:43:13 [code = COLONOSCOPY SCREENING] Future Scheduled 2022-07-02 SHINGLES VACCINES (1 [facility] Test 12:43:13 of 2) [code = SHINGLES VACCINES (1 of 2)] Future Scheduled 2022-07-02 65+ PNEUMOCOCCAL [facility] Test 12:43:13 VACCINE (1 - PCV) [code = 65+ PNEUMOCOCCAL VACCINE (1 - PCV)] Future Scheduled 2022-07-02 INFLUENZA VACCINE [facility] Hospital Test 12:43:13 [code = INFLUENZA VACCINE] Future Scheduled 2022-06-22 COVID-19 VACCINE (#1) [facility] Hospital Test 13:11:51 [code = COVID-19 VACCINE (#1)] Future Scheduled 2022-06-22 COLONOSCOPY SCREENING [facility] Hospital Test 13:11:51 [code = COLONOSCOPY SCREENING] Future Scheduled 2022-06-22 SHINGLES VACCINES (1 [facility] Test 13:11:51 of 2) [code = SHINGLES VACCINES (1 of 2)] Future Scheduled 2022-06-22 65+ PNEUMOCOCCAL [facility] Test 13:11:51 VACCINE (1 - PCV) [code = 65+ PNEUMOCOCCAL VACCINE (1 - PCV)] Future Scheduled 2022-06-22 INFLUENZA VACCINE Method [facility] Hospital Test 13:11:51 [code = INFLUENZA VACCINE] Future Scheduled 2022-06-01 COVID-19 VACCINE (#1) [facility] Hospital Test 03:44:23 [code = COVID-19 VACCINE (#1)] Future Scheduled 2022-06-01 COLONOSCOPY SCREENING [facility] Hospital Test 03:44:23 [code = COLONOSCOPY SCREENING] Future Scheduled 2022-06-01 SHINGLES VACCINES (1 [facility] Test 03:44:23 of 2) [code = SHINGLES VACCINES (1 of 2)] Future Scheduled 2022-06-01 65+ PNEUMOCOCCAL [facility] Test 03:44:23 VACCINE (1 - PCV) [code = 65+ PNEUMOCOCCAL VACCINE (1 - PCV)] Future Scheduled 2022-06-01 INFLUENZA VACCINE Method is Hospital Test 03:44:23 [code = INFLUENZA VACCINE] Future Scheduled 2022-05-16 HEPATITIS B VACCINES [facility] Test 12:40:21 (1 of 3 - 3-dose series) [code = HEPATITIS B VACCINES (1 of 3 - 3-dose series)] Future Scheduled 2022-05-16 COVID-19 VACCINE (#1) [facility] Hospital Test 12:40:21 [code = COVID-19 VACCINE (#1)] Future Scheduled 2022-05-16 COLONOSCOPY SCREENING [facility] Hospital Test 12:40:21 [code = COLONOSCOPY SCREENING] Future Scheduled 2022-05-16 SHINGLES VACCINES (1 [facility] Test 12:40:21 of 2) [code = SHINGLES VACCINES (1 of 2)] Future Scheduled 2022-05-16 65+ PNEUMOCOCCAL [facility] Test 12:40:21 VACCINE (1 - PCV) [code = 65+ PNEUMOCOCCAL VACCINE (1 - PCV)] Future Scheduled 2022-05-16 INFLUENZA VACCINE Method [facility] Test 12:40:21 [code = INFLUENZA VACCINE] Future Scheduled 2022-05-16 HEPATITIS B VACCINES Met [facility] Test 12:40:21 (1 of 3 - 3-dose series) [code = HEPATITIS B VACCINES (1 of 3 - 3-dose series)] Future Scheduled 2022-05-16 COVID-19 VACCINE (#1) [facility] Test 12:40:21 [code = COVID-19 VACCINE (#1)] Future Scheduled 2022-05-16 COLONOSCOPY SCREENING [facility] Test 12:40:21 [code = COLONOSCOPY SCREENING] Future Scheduled 2022-05-16 SHINGLES VACCINES (1 [facility] Test 12:40:21 of 2) [code = SHINGLES VACCINES (1 of 2)] Future Scheduled 2022-05-16 65+ PNEUMOCOCCAL [facility] Test 12:40:21 VACCINE (1 - PCV) [code = 65+ PNEUMOCOCCAL VACCINE (1 - PCV)] Future Scheduled 2022-05-16 INFLUENZA VACCINE [facility] Test 12:40:21 [code = INFLUENZA VACCINE] Future Scheduled 2022-02-15 HEPATITIS B VACCINES Met [facility] Test 22:23:02 (1 of 3 - 3-dose series) [code = HEPATITIS B VACCINES (1 of 3 - 3-dose series)] Future Scheduled 2022-02-15 COVID-19 VACCINE (#1) [facility] Hospital Test 22:23:02 [code = COVID-19 VACCINE (#1)] Future Scheduled 2022-02-15 COLONOSCOPY SCREENING [facility] Test 22:23:02 [code = COLONOSCOPY SCREENING] Future Scheduled 2022-02-15 SHINGLES VACCINES (1 Met [facility] Test 22:23:02 of 2) [code = SHINGLES VACCINES (1 of 2)] Future Scheduled 2022-02-15 65+ PNEUMOCOCCAL [facility] Test 22:23:02 VACCINE (1 - PCV) [code = 65+ PNEUMOCOCCAL VACCINE (1 - PCV)] Future Scheduled 2022-02-15 INFLUENZA VACCINE [facility] Test 22:23:02 [code = INFLUENZA VACCINE] Future Scheduled 2022-02-15 HEPATITIS B VACCINES Met [facility] Test 22:23:02 (1 of 3 - 3-dose series) [code = HEPATITIS B VACCINES (1 of 3 - 3-dose series)] Future Scheduled 2022-02-15 COVID-19 VACCINE (#1) [facility] Test 22:23:02 [code = COVID-19 VACCINE (#1)] Future Scheduled 2022-02-15 COLONOSCOPY SCREENING [facility] Test 22:23:02 [code = COLONOSCOPY SCREENING] Future Scheduled 2022-02-15 SHINGLES VACCINES (1 Met [facility] Test 22:23:02 of 2) [code = SHINGLES VACCINES (1 of 2)] Future Scheduled 2022-02-15 65+ PNEUMOCOCCAL [facility] Test 22:23:02 VACCINE (1 - PCV) [code = 65+ PNEUMOCOCCAL VACCINE (1 - PCV)] Future Scheduled 2022-02-15 INFLUENZA VACCINE Method [facility] Test 22:23:02 [code = INFLUENZA VACCINE] Encounters Start End Encounter Admission Attending Care Care Encounter Source Date/Time Date/Time Type Type Clinicians Facility Department ID 2022-12-[address] [facility] [id number] [place] 01:57:31 [id number] [facility] 2022[facility]07[facility]12 [facility] [id number] Common 14:39:02 [id number] [facility] 2022-07-10 [facility] [id number] Common 13:23:02 [id number] [facility] 2022-07-06 [facility] [id number] Common 15:54:02 [facility] 2022-06-06 [facility] [id number] Common 14:38:03 [facility] 2022-05-[address] [facility] [id number] [place] 16:53:26 [id number] [facility] 2022-04-[address] [facility] [id number] [place] 14:57:53 [id number] [facility] 2022-04-[address] [facility] [id number] [place] 16:28:44 [id number] [facility] 2022-04-20 Outpatient [facility] [id number] Common 15:28:02 [facility] 2022-04-[address] [facility] [id number] [place] 22:41:31 [id number] [facility] 2022-04-[address] [facility] [id number] [place] 12:07:40 [id number] [facility] 2022-07-12 2022-07-12 OFFICE [facility] [id number] Co mmon 00:00:00 00:00:00 VISIT [facility] PT LEVEL 4 - [facility] 2022-05-26 2022-05-26 Inpatient ANCA, [facility] [id number] [facility] 05:31:00 11:45:00 [place] 2022-05-26 2022-05-26 Outpatient ANCA, [facility] [id number] [place] 07:45:00 07:45:00 [facility] 2022-04-25 2022-04-25 Office Anca, [facility] [id number] [place] 12:00:00 13:59:27 Visit [facility] MED 350.1.13.58 He alth [place] SANCHEZ 2 9.2.7.2.686 [id number] 2022-04-11 2022-04-11 Office Anca, [facility] [id number] [place] 14:20:00 15:43:47 Visit [facility] MED [id number] He alth [place] 2 9.2.7.2.686 [id number] 2021-12-21 2021-12-21 Outpatient ANCA, [facility] [id number] [facility] 13:48:00 23:59:00 [place] 2021-12-21 2021-12-21 Telephone Anca, [facility] [id number] [place] 00:00:00 00:00:00 [facility] MED [id number] He alth [place] [address] 2 9.2.7.2.686 [id number] 2021-12-06 2021-12-06 Telephone Anca, [facility] [id number] [place] 00:00:00 00:00:00 [place] MED 350.1.13.58 He alth Juanita SANCHEZ 2 9.2.7.2.686 [id number] 2021-10-10 2021-10-10 Telephone Anca, [facility] [id number] [place] 00:00:00 00:00:00 [place] MED 350.1.13.58 He alth Juanita SANCHEZ 2 9.2.7.2.686 [id number] 2021-10-05 2021-10-05 Telephone Anca, [facility] [id number] [place] 00:00:00 00:00:00 [place] MED 350.1.13.58 He alth [place] 2 9.2.7.2.686 [id number] 2021-09-02 2021-09-02 Telephone Anca, [facility] [id number] UT 00:00:00 00:00:00 [place] MED 350.1.13.58 He alth [place] [address] 2 9.2.7.2.686 [id number] 2021-08-26 2021-08-26 Telephone Anca, [facility] [id number] UT 00:00:00 00:00:00 [place] MED 350.1.13.58 He alth [place] [address] 2 9.2.7.2.686 [id number] 2021-08-24 2021-08-24 Telephone Anca, [facility] [id number] UT 00:00:00 00:00:00 [place] MED 350.1.13.58 He alth [place] [address] 2 9.2.7.2.686 [id number] 2021-08-23 2021-08-23 Office Anca, [facility] [id number] UT 08:45:00 09:58:51 Visit [place] [facility] MED 350.1.13.58 [place] SANCHEZ 2 9.2.7.2.686 [id number] 2021-08-22 2021-08-22 Telephone Nikunj Orozco D[place] [id number] ID 00:00:00 00:00:00 Nikunj Orozco 350.1.13.58 [facility] MEDICAL 9.2.7.2.686 [place] [id number] 2021-08-10 2021-08-10 Telephone KEVIN March [facility] [id number] [place] 00:00:00 00:00:00 [place] MED 350.1.13.58 [place] SANCHEZ 2 9.2.7.2.686 [id number] 2020-05-21 2020-05-21 Hospital Radiology [facility] [id number] [id number] 12:15:00 23:59:00 Encounter [place] 350.1.13.10 [place] 4.2.7.2.686 [place] [id number] 2020-05-21 2020-05-21 [facility] Radiology [facility] [id number] [facility] 12:15:00 23:59:00 Encounter [place] [facility] 4.2.7[facility]2.686 [facility] [id number] [facility] [address] [place] [address] 2020-05-21 2020-05-21 Outpatient R RADIOLOGY [facility] [id number] [facility] 00:00:00 00:00:00 ity of [facility] Results Test Description Test Time Test Comments Results Result Sour e Comments XR CHEST 2 VW No evidence of acute U niversity of 4 cardiopulmonary [place] [facility] 18:40:00 disease.2 VIEWS OF Branch THE CHEST HISTORY: Chest pain, unspecified type COMPARISON: 06/08/2017 TECHNIQUE: PA and lateral views of the chest. FINDINGS: The lungs are clear. There is no focal consolidation, pleural effusion orpneumothorax. The cardiomediastinal silhouette is within normal limits. ?No acute bonyabnormalities are seen. [facility], Radiant Results Inft User - 05/21/2020 12:41 PM CST2 VIEWS OF THE CHESTHISTORY: Chest pain, unspecified type COMPARISON: 06/08/2017TECHNIQUE: PA and lateral views of the chest.FINDINGS:The lungs are clear. There is no focal consolidation, pleural effusion orpneumothorax.The cardiomediastinal silhouette is within normal limits. No acute bonyabnormalities are seen.IMPRESSIONNo evidence of acute cardiopulmonary disease.
[2023-02-16 23:44] LABS: Absolute Lymphocytes (CBC) 1.2 K/uL (0.7-4.9); Hematocrit 35.5 % (39.6-49.0); Lymphocytes % 16.7 % (15.3-44.8); MCV 86.9 fL (80-100); MPV 7.2 fL (7.6-11.3); Platelets 160 thou/uL (152-406); RBC Red Blood Cell Count 4.09 M/uL (4.33-5.43)
[2023-02-16 23:52] LABS: Protime INR 1.1
[2023-02-17] MEDS ORDERED: NA CHLORIDE 0.9% 1,000 ML ONE ×2 (00:02→00:57)
[2023-02-17 00:06] LABS: SARS-CoV-2 Antigen Rapid Res Negative (Negative)
[2023-02-17 00:10] LABS: Albumin 3.3 g/dL (3.4-5.0); Bilirubin Direct 0.2 mg/dL (0-0.2); Bilirubin Indirect, Calculated 0.4 mg/dL (0.2-0.8); Bilirubin Total 0.6 mg/dL (0.2-1.0); Magnesium 2.1 mg/dL (1.6-2.4); Potassium 3.8 mEq/L (3.5-5.1); Protein, Total 6.3 g/dL (6.4-8.2)
--- NOTE | 2023-02-17 01:21 | ER ---
Nurse's Notes [facility] Name: Jose Hoyt Age: 68 yrs Sex: Male : 1955 Arrival Date: 02/16/2023 Time: 22:43 Bed 7 Private MD: Diagnosis: Altered mental status, unspecified;Visual hallucinations;Acute kidney failure, unspecified-on CHRONIC Presentation: 02/16 22:52 Chief complaint: Patient states: Having the same stuff I have had the last 2 weekends, vc1 hallucinations and beating on the shields. Coronavirus screen: Client denies travel out of the [place] in the last 14 days. At this time, the client does not indicate any symptoms associated with coronavirus-19. Ebola Screen: Patient negative for fever greater than or equal to 101.5 degrees Fahrenheit, and additional compatible Ebola Virus Disease symptoms Patient denies exposure to infectious person. Patient denies travel to an Ebola-affected area in the 21 days before illness onset. No symptoms or risks identified at this time. Risk Assessment: Do you want to hurt yourself or someone else? Patient reports no desire to harm self or others. Onset of symptoms is unknown. 22:52 Method Of Arrival: Wheelchair vc1 22:52 Acuity: SANDY 3 vc1 02/17 03:58 Initial Sepsis Screen: Does the patient meet any 2 criteria? No. Patient's initial rv sepsis screen is negative. Does the patient have a suspected source of infection? No. Patient's initial sepsis screen is negative. Triage Assessment: 02/16 22:55 General: Appears in no apparent distress. uncomfortable, Behavior is calm, cooperative, vc1 appropriate for age. Pain: Denies pain. EENT: No deficits noted. No signs and/or symptoms were reported regarding the EENT system. Neuro: Reports dizziness, Hallucinations. Cardiovascular: No deficits noted. Respiratory: Airway is patent Respiratory effort is even, unlabored, Respiratory pattern is regular, symmetrical. GI: No deficits noted. No signs and/or symptoms were reported involving the gastrointestinal system. : No deficits noted. No signs and/or symptoms were reported regarding the genitourinary system. Derm: No deficits noted. No signs and/or symptoms reported regarding the dermatologic system. Musculoskeletal: No deficits noted. No signs and/or symptoms reported regarding the musculoskeletal system. Historical: - Allergies: 22:55 No Known Allergies; vc1 - PMHx: 22:53 Anxiety; Diabetes - NIDDM; resolved; Hypertension; neuropathy; vc1 - PSHx: 22:53 penile sx; vc1 - Immunization history:: Client reports receiving the 2nd dose of the Covid vaccine, plus 1 booster; Moderna. - Social history:: Smoking status: Patient denies any tobacco usage or history of. Screenin:02 [facility] ED Fall Risk Assessment (Adult) History of falling in the last 3 months, bp including since admission No falls in past 3 months (0 pts). Abuse screen: Denies threats or abuse. Denies injuries from another. Nutritional screening: No deficits noted. Tuberculosis screening: No symptoms or risk factors identified. Assessment: 23:02 General: SEE TRIAGE NOTE. bp 02/17 00:53 Reassessment: Patient appears in no apparent distress at this time. Patient is alert, bp oriented x 3, equal unlabored respirations, skin warm/dry/pink. Vital Signs: 02/16 22:52 Weight 107.05 kg; Height 5 ft. 4 in. ; vc1 22:56 BP 97 / 61; Pulse 57; Resp 18; Temp 98.1; Pulse Ox 97% ; vc1 02/17 00:51 BP 124 / 64; Pulse 56; Resp 16; Pulse Ox 97% ; bp 03:59 BP 122 / 60; Pulse 61; Resp 16; Temp 98; Pulse Ox 99% on R/A; rv 02/16 22:52 Body Mass Index 40.51 (107.05 kg, 162.56 cm) vc1 NIH Stroke Scale Scores: 02/16 23:27 NIHSS Score: 0 noe ED Course: 22:46 Patient arrived in ED. mr 22:53 Triage completed. vc1 22:54 Arm band placed on right wrist. vc1 23:02 Laz Brownlee, RN is Primary Nurse. bp 23:02 Patient has correct armband on for positive identification. Bed in low position. Call bp light in reach. Side rails up X2. 23:07 Gigi Mendoza MD is Attending Physician. noe 23:38 Inserted saline lock: 20 gauge in left hand, using aseptic technique. Blood collected. rv 02/17 00:05 XRAY Chest (1 view) In Process Unspecified. EDMS 00:19 Hunter Baez MD is Hospitalizing Provider. noe 01:23 CT Head Brain wo Cont In Process Unspecified. EDMS 03:55 No provider procedures requiring assistance completed. Patient admitted, IV remains in rv place. 03:58 Provided Education on: NA. rv Administered Medications: 02/16 23:53 Drug: NS 0.9% IV 1000 ml Route: IV; Rate: 125 ml/hr; Site: left hand; rv 02/17 03:59 Follow up: IV Status: Infusion continued upon admission rv 00:50 Drug: NS 0.9% IV 1000 ml Route: IV; Rate: 1 bolus; Site: left hand; bp 03:59 Follow up: IV Status: Completed infusion rv Medication: 02/16 23:02 VIS not applicable for this client. bp Outcome: 02/17 01:21 Decision to Hospitalize by Provider. noe 03:58 Discharged to rv 03:58 Condition: stable 03:58 Instructed on the need for admit. 03:59 Patient left the ED. rv NIH Stroke Scale - NIH Stroke Score Date: 02/16/2023 Time: 23:27 Total Score = 0 10. Dysarthria (speech clarity - read or repeat words) - 0(Normal) 11. Extinction and Inattention (visual/tactile/auditory/spatial/personal) - 0(No abnormality) 1a. Level of Consciousness (LOC) - 0(Alert) 1b. Level of Consciousness (LOC) (Month \T\ Age) - 0(Both) 1c. LOC Commands (Open \T\ Closes Eyes/Secretary Office Clerk) - 0(Both) 2. Best Gaze (Lateral Gaze Paresis) - 0(Normal) 3. Visual Field Loss - 0(No visual loss) 4. Facial Palsy - 0(Normal) 5a. Left Arm: Motor (10-second hold) - 0(No drift) 5b. Right Arm: Motor (10-second hold) - 0(No drift) 6a. Left Leg: Motor (5-second hold - always test supine) - 0(No drift) 6b. Right Leg: Motor (5-second hold - always test supine) - 0(No drift) 7. Limb Ataxia (finger/nose \T\ heel/briggs - test with eyes open) - 0(Absent) 8. Sensory Loss (pinprick arms/legs/face) - 0(Normal) 9. Best Language: Aphasia (description/naming/reading) - 0(No aphasia) Initials: [facility] Signatures: Dispatcher [employer] Gigi Mckinney MD MD cha Rivera, Laz Almonte, RN RN Angelo Swan RN RN rv Dinah Agrawal RN RN vc1
--- NOTE | 2023-02-17 01:21 | EDPHYS ---
Physician Documentation [facility] Name: Jose Hoyt Age: 68 yrs Sex: Male : 1955 Arrival Date: 02/16/2023 Time: 22:43 Bed 7 Private MD: ED Physician Gigi Mendoza HPI: 02/16 23:25 This 68 yrs old Male presents to ER via Wheelchair with complaints of noe Hallucinations. 23:25 hallucinating, seeing things. The patient presents with confusion. Onset: The noe symptoms/episode began/occurred 1 day(s) ago. Possible causes: CVA or TIA, the patient woke up with the symptoms. Associated signs and symptoms: Pertinent positives: combativeness, confusion. Patient's baseline: Neuro: alert and fully oriented. Severity of symptoms: At their worst the symptoms were moderate in the emergency department the symptoms are unchanged. The patient has not experienced similar symptoms in the past. Historical: - Allergies: 22:55 No Known Allergies; vc1 - PMHx: 22:53 Anxiety; Diabetes - NIDDM; resolved; Hypertension; neuropathy; vc1 - PSHx: 22:53 penile sx; vc1 - Immunization history:: Client reports receiving the 2nd dose of the Covid vaccine, plus 1 booster; Moderna. - Social history:: Smoking status: Patient denies any tobacco usage or history of. ROS: 23:27 Constitutional: Negative for fever, chills, and weight loss, Eyes: Negative for injury, noe pain, redness, and discharge, ENT: Negative for injury, pain, and discharge, Neck: Negative for injury, pain, and swelling, Cardiovascular: Negative for chest pain, palpitations, and edema, Respiratory: Negative for shortness of breath, cough, wheezing, and pleuritic chest pain, Abdomen/GI: Negative for abdominal pain, nausea, vomiting, diarrhea, and constipation, Back: Negative for injury and pain, : Negative for injury, bleeding, discharge, and swelling, MS/Extremity: Negative for injury and deformity, Skin: Negative for injury, rash, and discoloration, Psych: Negative for depression, anxiety, suicide ideation, homicidal ideation, and hallucinations, Allergy/Immunology: Negative for hives, rash, and allergies, Endocrine: Negative for neck swelling, polydipsia, polyuria, polyphagia, and marked weight changes, Hematologic/Lymphatic: Negative for swollen nodes, abnormal bleeding, and unusual bruising. 23:27 Neuro: Positive for altered mental status. Exam: 23:27 Constitutional: This is a well developed, well nourished patient who is awake, alert, noe and in no acute distress. Head/Face: Normocephalic, atraumatic. Eyes: Pupils equal round and reactive to light, extra-ocular motions intact. Lids and lashes normal. Conjunctiva and sclera are non-icteric and not injected. Cornea within normal limits. Periorbital areas with no swelling, redness, or edema. ENT: Nares patent. No nasal discharge, no septal abnormalities noted. Tympanic membranes are normal and external auditory canals are clear. Oropharynx with no redness, swelling, or masses, exudates, or evidence of obstruction, uvula midline. Mucous membranes moist. Neck: Trachea midline, no thyromegaly or masses palpated, and no cervical lymphadenopathy. Supple, full range of motion without nuchal rigidity, or vertebral point tenderness. No Meningismus. Chest/axilla: Normal chest wall appearance and motion. Nontender with no deformity. No lesions are appreciated. Cardiovascular: Regular rate and rhythm with a normal S1 and S2. No gallops, murmurs, or rubs. Normal PMI, no JVD. No pulse deficits. Respiratory: Lungs have equal breath sounds bilaterally, clear to auscultation and percussion. No rales, rhonchi or wheezes noted. No increased work of breathing, no retractions or nasal flaring. Abdomen/GI: Soft, non-tender, with normal bowel sounds. No distension or tympany. No guarding or rebound. No evidence of tenderness throughout. Back: No spinal tenderness. No costovertebral tenderness. Full range of motion. Male : Normal genitalia with no discharge or lesions. Skin: Warm, dry with normal turgor. Normal color with no rashes, no lesions, and no evidence of cellulitis. MS/ Extremity: Pulses equal, no cyanosis. Neurovascular intact. Full, normal range of motion. Neuro: Awake and alert, GCS 15, oriented to person, place, time, and situation. Cranial nerves II-XII grossly intact. Motor strength 5/5 in all extremities. Sensory grossly intact. Cerebellar exam normal. Normal gait. Psych: Awake, alert, with orientation to person, place and time. Behavior, mood, and affect are within normal limits. 02/17 00:17 ECG was reviewed by the Attending Physician. [facility] Vital Signs: 02/16 22:52 Weight 107.05 kg; Height 5 ft. 4 in. ; vc1 22:56 BP 97 / 61; Pulse 57; Resp 18; Temp 98.1; Pulse Ox 97% ; vc1 02/17 00:51 BP 124 / 64; Pulse 56; Resp 16; Pulse Ox 97% ; bp 03:59 BP 122 / 60; Pulse 61; Resp 16; Temp 98; Pulse Ox 99% on R/A; rv 02/16 22:52 Body Mass Index 40.51 (107.05 kg, 162.56 cm) vc1 NIH Stroke Scale Scores: 02/16 23:27 NIHSS Score: 0 noe MDM: 23:07 Patient medically screened. noe 23:28 Differential Diagnosis altered mental status. Differential Diagnosis: CVA, electrolyte noe abnormality, hypoglycemia, intracranial bleed, pneumonia, TIA, UTI. Data reviewed: vital signs, nurses notes, lab test result(s), EKG, radiologic studies, CT scan. Consideration of Admission/Observation Patient was admitted/placed on observation. Escalation of care including admission/observation considered. I considered the following discharge prescriptions or medication management in the emergency department Medications were administered in the Emergency Department. See MAR. Test considered but Not performed: MRI: no mri brain. Care significantly affected by the following chronic conditions: Diabetes, Hypertension, Obesity, anxiety. 02/16 23:16 Order name: Basic Metabolic Panel; Complete Time: 00:14 [facility] 02/16 23:16 Order name: CBC with Diff; Complete Time: 00:09 [facility] 02/16 23:16 Order name: LFT's; Complete Time: 00:14 [facility] 02/16 23:16 Order name: Magnesium; Complete Time: 00:14 [facility] 02/16 23:16 Order name: NT PRO-BNP; Complete Time: 00:14 [facility] 02/16 23:16 Order name: PT-INR; Complete Time: 00:09 [facility] 02/16 23:16 Order name: Troponin HS; Complete Time: 00:14 [facility] 02/16 23:16 Order name: SARS RAPID; Complete Time: 00:09 [facility] 02/16 23:16 Order name: Urinalysis w/ reflexes [facility] 02/17 00:16 Order name: AMMONIA; Complete Time: 01:58 [facility] 02/16 23:16 Order name: XRAY Chest (1 view) [facility] 02/16 23:16 Order name: CT Head Brain wo Cont [facility] 02/16 23:16 Order name: EKG; Complete Time: 23:16 [facility] 02/16 23:16 Order name: Cardiac monitoring; Complete Time: 23:38 [facility] 02/16 23:16 Order name: EKG - Nurse/Tech; Complete Time: 23:38 [facility] 02/16 23:16 Order name: IV Saline Lock; Complete Time: 23:38 [facility] 02/16 23:16 Order name: Labs collected and sent; Complete Time: 23:38 [facility] 02/16 23:16 Order name: O2 Per Protocol; Complete Time: 23:38 [facility] 02/16 23:16 Order name: O2 Sat Monitoring; Complete Time: 23:38 [facility] EC/02 00:17 Rate is 54 beats/min. Rhythm is regular. QRS Roach is Normal. AL interval is normal. QRS noe interval is normal. QT interval is normal. No Q waves. T waves are Normal. No ST changes noted. Clinical impression: Sinus bradycardia. Interpreted by me. Reviewed by me. Administered Medications: 02/16 23:53 Drug: NS 0.9% IV 1000 ml Route: IV; Rate: 125 ml/hr; Site: left hand; rv 02/17 03:59 Follow up: IV Status: Infusion continued upon admission rv 00:50 Drug: NS 0.9% IV 1000 ml Route: IV; Rate: 1 bolus; Site: left hand; bp 03:59 Follow up: IV Status: Completed infusion rv Disposition Summary: 02/17/23 01:21 Hospitalization Ordered Hospitalization Status: Inpatient Admission noe Provider: Hunter Baez cha Location: Telemetry/MedSurg (Inpatient) noe Condition: Fair noe Problem: new noe Symptoms: have improved noe Bed/Room Type: Standard [facility] Room Assignment: 214(02/17/23 02:47) cg Diagnosis - Altered mental status, unspecified noe - Visual hallucinations noe - Acute kidney failure, unspecified - on CHRONIC noe Forms: - Medication Reconciliation Form noe - SBAR form noe - Leadership Thank You Letter noe NIH Stroke Scale - NIH Stroke Score Date: 02/16/2023 Time: 23:27 Total Score = 0 10. Dysarthria (speech clarity - read or repeat words) - 0(Normal) 11. Extinction and Inattention (visual/tactile/auditory/spatial/personal) - 0(No abnormality) 1a. Level of Consciousness (LOC) - 0(Alert) 1b. Level of Consciousness (LOC) (Month \T\ Age) - 0(Both) 1c. LOC Commands (Open \T\ Closes Eyes/Laborer Demolition) - 0(Both) 2. Best Gaze (Lateral Gaze Paresis) - 0(Normal) 3. Visual Field Loss - 0(No visual loss) 4. Facial Palsy - 0(Normal) 5a. Left Arm: Motor (10-second hold) - 0(No drift) 5b. Right Arm: Motor (10-second hold) - 0(No drift) 6a. Left Leg: Motor (5-second hold - always test supine) - 0(No drift) 6b. Right Leg: Motor (5-second hold - always test supine) - 0(No drift) 7. Limb Ataxia (finger/nose \T\ heel/briggs - test with eyes open) - 0(Absent) 8. Sensory Loss (pinprick arms/legs/face) - 0(Normal) 9. Best Language: Aphasia (description/naming/reading) - 0(No aphasia) Initials: [facility] Signatures: Dispatcher [employer] EDMS Gigi Mendoza MD MD cha Attema, Lee, REAL ESTATE SERVICES COORDINATOR-C REAL ESTATE SERVICES COORDINATOR-Cla1 Giuliana Hoyt, RADHA GARCIA cg Laz Brownlee RN RN bp Vicente, Ronaldo, RN RN rv Dinah Agrawal RN RN vc1 Corrections: (The following items were deleted from the chart) 02:47 01:21 noe
--- NOTE | 2023-02-17 02:56 | P.HP ---
Certification for Inpatient Patient admitted to: Observation With expected LOS: <2 Midnights Patient will require the following post-hospital care: None Practitioner: I am a practitioner with admitting privileges, knowledge of patient current condition, hospital course, and medical plan of care. Services: Services provided to patient in accordance with Admission requirements found in Title 42 Section 412.3 of the Code of Federal Regulations <LeandraTolu Lanza - Last Filed: 02/17/23 02:51> Patient History Date of Service: 02/17/23 Reason for admission: KARO, weakness History of Present Illness: 68-year-old male with history of hypertension, hyperlipidemia, recent previous CVA, history of visual hallucinations presents to the emergency department with chief complaint of fall, weakness, visual hallucinations. He was recently seen at our facility admitted on 02/05/2023 and subsequently discharged on 02/06/2023 he had an MRI during that admission which revealed 10 mm acute infarction right parietal lobe. He was deemed stable for discharge and sent home with home health and prescription for aspirin, Plavix, statin. He reports for the last 2 to 3 days he has been feeling more weak, also having some left arm paresthesias and difficulties with his speech. He frequently has trouble finding his words or has mildly slurred speech. Also his ER labs were significant for mild KARO with a creatinine of 1.7 baseline around 1.1. ED provider wishes to admit under observation for KARO, falls, weakness. - Past Medical/Surgical History Diabetic: No -: HTN -: neuropathy -: Peripheral neuropathy -: obesity -: JHONNY -: hypercholesterolemia -: Visual hallucinations -: Ischemic CVA -: back surgery -: back cyst removal -: right knee sx Psychosocial/ Personal History: Patient lives at home, alone and is retired. - Family History Mother -: Heart disease, Diabetes, Cancer, Liver disease Notes: mother of liver cancer. Father -: Heart disease, Cancer Notes: Colon CA - Social History Alcohol use: No CD- Drugs: No Caffeine use: No Place of Residence: Home <Tolu Mobley - Last Filed: 02/17/23 02:51> Date of Service: 02/17/23 <Hunter Baez - Last Filed: 02/17/23 21:22> Allergies No Known Allergies Allergy (Verified 02/17/23 05:09) Home Medications: RX: Simvastatin 10 mg PO BEDTIME 05/21/18 RX: Aspirin [Aspirin EC 81 MG] 81 mg PO DAILY #90 tablet. 07/13/18 RX: NIFEdipine [Nifedipine ER] 60 mg PO DAILY 07/13/18 RX: Tamsulosin HCl [Flomax] 0.4 mg PO DAILY 08/17/22 Methyl Folate 1,000 mg PO BEDTIME 02/03/23 RX: Atenolol [Tenormin] 1.5 tab PO BID 02/03/23 RX: Cetirizine HCl [Zyrtec] 10 mg PO DAILY PRN 02/03/23 RX: Gabapentin 800 mg PO BEDTIME 02/03/23 RX: Gabapentin [Neurontin*] 400 mg PO 1400 02/03/23 RX: Gabapentin [Neurontin*] 400 mg PO DAILY 02/03/23 RX: Losartan Potassium [Cozaar*] 50 mg PO BID 02/03/23 RX: Tizanidine HCl [Zanaflex] 4 mg PO TID PRN 02/03/23 RX: levETIRAcetam [Levetiracetam] 500 mg PO BID 02/03/23 Clopidogrel Bisulfate [Plavix] 75 mg PO DAILY #30 tab 02/06/23 RX: cloNIDine HCL [Clonidine HCl] 1 tab PO BID #60 tab 02/06/23 Ascorbic Acid [Vitamin C] 1,000 mg PO DAILY 02/17/23 Cholecalciferol (Vitamin D3) [Vitamin D3] 5,000 unit PO DAILY 02/17/23 Cyanocobalamin (Vitamin B-12) [Vitamin B12] 1,000 mcg PO DAILY 02/17/23 Glucos Sul 2Kcl/MSM/Chond/C/Mn [Glucosamine Chondroitin Cap] 1 each PO DAILY 02/17/23 Levothyroxine [Synthroid] 88 mcg PO DAILY 02/17/23 RX: Biotin 1 mg PO DAILY 02/17/23 Tramadol HCl [Ultram] 50 mg PO TID PRN 02/17/23 Zinc Gluconate [Zinc] 50 mg PO DAILY 02/17/23 Review of Systems 10-point ROS is otherwise unremarkable General: Weakness, Malaise, Other (Falls) Neurological: Change in Speech, Other (Left upper extremity paresthesias) <Tolu Mobley Pool - Last Filed: 02/17/23 02:51> Physical Examination - Physical Exam General: Alert, In no apparent distress, Oriented x3 HEENT: Atraumatic, PERRLA, Mucous membr. moist/pink, EOMI, Sclerae nonicteric Neck: Supple, 2+ carotid pulse no bruit, No LAD, Without JVD or thyroid abnormality Respiratory: Clear to auscultation bilaterally, Normal air movement Cardiovascular: Regular rate/rhythm, Normal S1 S2 Capillary refill: <2 Seconds Gastrointestinal: Normal bowel sounds, No tenderness Musculoskeletal: No tenderness Integumentary: No rashes Neurological: Normal gait, Normal strength at 5/5 x4 extr, Normal tone, Normal affect, Other (NIH 2 left upper extremity paresthesias, mild dysarthria), Abnormal speech Lymphatics: No axilla or inguinal lymphadenopathy - Studies Laboratory Data (last 24 hrs) 02/16/23 02/16/23 02/16/23 23:30 23:30 23:30 WBC 7.40 Hgb 12.5 L Hct 35.5 L Plt Count 160 PT 12.1 INR 1.10 Sodium 139 Potassium 3.8 BUN 25 H Creatinine 1.71 H Glucose 149 H Magnesium 2.1 Total Bilirubin 0.6 AST 9 L ALT 16 Alkaline Phosphatase 85 <Tolu Mobley - Last Filed: 02/17/23 02:51> - Studies Laboratory Data (last 24 hrs) 02/16/23 02/16/23 02/16/23 23:30 23:30 23:30 WBC 7.40 Hgb 12.5 L Hct 35.5 L Plt Count 160 PT 12.1 INR 1.10 Sodium 139 Potassium 3.8 BUN 25 H Creatinine 1.71 H Glucose 149 H Magnesium 2.1 Total Bilirubin 0.6 AST 9 L ALT 16 Alkaline Phosphatase 85 <Hunter Baez - Last Filed: 02/17/23 21:22> Assessment and Plan - Plan Assessment: KARO Falls, weakness History of recent ischemic CVA-paresthesias, dysarthria Hypertension Hyperlipidemia Visual hallucinations Plan: KARO Continue IV fluids overnight, consult nephrology if there is no improvement or if there is worsening. Falls, weakness PT consult. Patient reports multiple ground-level falls without significant injury at home difficulty getting up. History of recent ischemic CVA-paresthesias, dysarthria Patient is uncertain if he has been taking his aspirin or Plavix at home since discharge from the hospital after being diagnosed with an ischemic CVA. Aspirin and Plavix ordered during hospitalization. Counseled importance of continuation of medications. NIH currently 2 given left upper extremity changes in sensation on exam, mild dysarthria. Symptoms onset about 2 days ago. Will obtain carotid Doppler if not previously done. Hypertension Hyperlipidemia Continue home medications once verified, hold KIMBERLI/ARB in the setting of KARO. Visual hallucinations Unclear etiology, have been intermittent in nature but are persistently happening. Has been seen by psychiatry, neurology neurology previously recommended MRI which revealed a 10 mm ischemic CVA in the parietal area. Reviewed medications, likely will need further outpatient management. DVT PPX: Lovenox Code status: Full Discharge Plan: Home Plan to discharge in: 24 Hours - Advance Directives Does patient have a Living Will: Yes Does patient have a Durable POA for Healthcare: Yes - Code Status/Comfort Care Code Status Assessed: Yes Critical Care: No Time Spent Managing Pts Care (In Minutes): 55 <Tolu Mobley - Last Filed: 02/17/23 02:51> Physician Review: Patient Assessed, Agree with Above Assessment and Plan <Hunter Baez - Last Filed: 02/17/23 21:22>
[2023-02-17] MEDS ORDERED: NA CHLORIDE 0.9% 1,000 ML IV SCH (04:20)
[2023-02-17] MEDS ORDERED: ONDANSETRON 4 MG/2 ML VIAL IV PRN (04:20)
[2023-02-17 05:18] VITALS: BMI 40.4
[2023-02-17 05:43] LABS: Potassium 3.6 mEq/L (3.5-5.1); Thyroid Stimulating Hormone 1.67 uIU/mL (0.358-3.740)
[2023-02-17] MEDS: INSULIN -REGULAR HUMAN 50 UNIT/0.5 ML ML SQ SCH ×4 (07:30→20:21)
[2023-02-17 07:59] LABS: Specific Gravity 1.012 (1.005-1.030); Urine Bilirubin NEGATIVE (Negative); Urine Blood Negative (Negative); Urine Clarity Clear (Clear); Urine Color Light-Yellow (Yellow); Urine Glucose NEGATIVE (Negative); Urine Protein NEGATIVE (Negative); Urine Urobilinogen Normal (Normal); Urine pH 6.5 (5.0-7.0)
[2023-02-17] MEDS: ENOXAPARIN 40 MG/0.4 ML SQ SCH (09:00)
[2023-02-17] MEDS: CLOPIDOGREL 75 MG TABLET PO SCH (09:18)
[2023-02-17] MEDS: ASPIRIN EC 81 MG TAB PO SCH (09:18)
[2023-02-17] MEDS: TAMSULOSIN 0.4 MG SR CAP PO SCH (09:19)
--- NOTE | 2023-02-17 09:28 | RAD REPORT ---
EXAM DESCRIPTION: US - CP - 02/17/2023 6:11 am CLINICAL HISTORY: dysarthria, recent cva COMPARISON: Head C Spine Mpr Wo Con dated 01/17/2023 TECHNIQUE: Real-time sonographic grayscale, color duplex, and spectral wave Doppler evaluation of rupinder th carotid systems was performed. FINDINGS: Normal high resistance waveforms are noted in both external carotid arteries. The common c arotid arteries and internal carotid arteries show normal low resistance waveforms. Mild smooth echogenic noncalcified plaque formation is seen at the carotid bulbs more so on the right and bilateral proximal ICAs. Peak systolic velocity less than 125 cm/ sec bilaterally. ICA/CCA peak systolic ratios less than 2.0 bilaterally. Antegrade flow seen in both vertebral arteries. IMPRESSION: Mild atherosclerotic changes noted. Less than 50% stenosis of the ICAs bilaterally. Evaluation of carotid artery stenosis, if any, is reported based on consensus recommendations of the Society of Radiologists in Ultrasound (Mamadou et al., Radiology, 2003)
--- NOTE | 2023-02-17 13:18 | P.CNS ---
Date of Consult: 02/17/23 Reason for Consult: KARO, BP management Requesting Physician: Tolu Mobley Chief Complaint: KARO, weakness History of Present Illness: Pt is a 68-year-old male with history of chronic hypertension, recent CVA, who presented to the ER yesterday with complaints of dizziness, weakness, some visual hallucinations. He was recently admitted on 02/05/2023 and subsequently discharged on 02/06/2023 with findings on that admission including 10 mm acute infarction right parietal lobe. Pt is on several BP meds at home and on admission yesterday BP was low. Pt does not monitor BP at home. Pt reports there has been medication concerns in the past so not too long ago his regimen had been adjusted. Pt feels better currently but still experiencing some of the above mentioned symptoms. He denies WRIGHT, visual blurriness or double vision. Allergies No Known Allergies Allergy (Verified 02/17/23 05:09) Home Medications: Simvastatin 10 mg PO BEDTIME 05/21/18 Aspirin [Aspirin EC 81 MG] 81 mg PO DAILY #90 tablet. 07/13/18 NIFEdipine [Nifedipine ER] 60 mg PO DAILY 07/13/18 Tamsulosin HCl [Flomax] 0.4 mg PO DAILY 08/17/22 Atenolol [Tenormin] 1.5 tab PO BID 02/03/23 Cetirizine HCl [Zyrtec] 10 mg PO DAILY PRN 02/03/23 Gabapentin 800 mg PO BEDTIME 02/03/23 Gabapentin [Neurontin*] 400 mg PO 1400 02/03/23 Gabapentin [Neurontin*] 400 mg PO DAILY 02/03/23 Losartan Potassium [Cozaar*] 50 mg PO BID 02/03/23 Methyl Folate 1,000 mg PO BEDTIME 02/03/23 Tizanidine HCl [Zanaflex] 4 mg PO TID PRN 02/03/23 levETIRAcetam [Levetiracetam] 500 mg PO BID 02/03/23 Clopidogrel Bisulfate [Plavix] 75 mg PO DAILY #30 tab 02/06/23 cloNIDine HCL [Clonidine HCl] 1 tab PO BID #60 tab 02/06/23 Ascorbic Acid [Vitamin C] 1,000 mg PO DAILY 02/17/23 Biotin 1 mg PO DAILY 02/17/23 Cholecalciferol (Vitamin D3) [Vitamin D3] 5,000 unit PO DAILY 02/17/23 Cyanocobalamin (Vitamin B-12) [Vitamin B12] 1,000 mcg PO DAILY 02/17/23 Glucos Sul 2Kcl/MSM/Chond/C/Mn [Glucosamine Chondroitin Cap] 1 each PO DAILY 02/17/23 Levothyroxine [Synthroid] 88 mcg PO DAILY 02/17/23 Tramadol HCl [Ultram] 50 mg PO TID PRN 02/17/23 Zinc Gluconate [Zinc] 50 mg PO DAILY 02/17/23 - Past Medical/Surgical History Diabetic: No -: HTN -: neuropathy -: Peripheral neuropathy -: obesity -: JHONNY -: hypercholesterolemia -: Visual hallucinations -: Ischemic CVA -: back surgery -: back cyst removal -: right knee sx Psychosocial/ Personal History: Patient lives at home, alone and is retired. - Family History Mother Medical History: Heart disease, Diabetes, Cancer, Liver disease Notes: mother of liver cancer. Father Medical History: Heart disease, Cancer Notes: Colon CA - Social History Smoking Status: Never smoker Alcohol use: No CD- Drugs: No Caffeine use: No Place of Residence: Home Review of Systems General: Weakness Cardiovascular: Light Headedness Neurological: Weakness, Other (Mild gait imbalance reported), As per HPI Physical Examination Temp Pulse Resp BP Pulse Ox 97.4 F 67 14 155/74 H 97 02/17/23 12:00 02/17/23 12:00 02/17/23 12:00 02/17/23 12:00 02/17/23 12:00 General: Alert, In no apparent distress, Oriented x3 HEENT: Atraumatic, Normocephalic, EOMI Neck: Supple Respiratory: Clear to auscultation bilaterally, Normal air movement Cardiovascular: No edema, Regular rate/rhythm, Normal S1 S2 Gastrointestinal: Soft and benign, Non-distended Musculoskeletal: No swelling, No contractures, No tenderness Integumentary: No rashes Neurological: Normal speech, Normal tone, Normal affect Laboratory Data (last 24 hrs) 02/16/23 02/16/23 02/16/23 23:30 23:30 23:30 WBC 7.40 Hgb 12.5 L Hct 35.5 L Plt Count 160 PT 12.1 INR 1.10 Sodium 139 Potassium 3.8 BUN 25 H Creatinine 1.71 H Glucose 149 H Magnesium 2.1 Total Bilirubin 0.6 AST 9 L ALT 16 Alkaline Phosphatase 85 Conclusions/Impression: A/P) 1. Stage 1 KARO 2nd to mild pre-renal state, relative hypotension and concurrent ARB use, other. 2. Cr level downward trending with hydration and outside of some mild prior fluctuation in levels, has been within normal limits at other time, so pt may not have any underlying CKD of note. 3. Will stop IVF. 4. Chronic HTN with recent small ischemic CVA. While more stricter BP control in the follow weeks targeting < 140/90 would be warranted, pt may be on too many agents. 5. Centrally acting meds such as Clonidine can have various AE, recommend avoiding. 6. Will determine which agents to re-start in next few days and recommend splitting timing of anti hypertensives and giving pt holding parameters Myke Lindquist MD, DEYANIRA
--- NOTE | 2023-02-17 14:37 | EKG ---
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
[2023-02-17] MEDS: ATORVASTATIN 10 MG TAB PO SCH (20:23)
[2023-02-17 21:04] VITALS: O2SAT 98
--- NOTE | 2023-02-17 21:50 | RAD REPORT ---
EXAM DESCRIPTION: CT - Head Brain Wo Cont - 02/17/2023 6:22 am CLINICAL HISTORY: 68 years Male MENTAL STATUS CHANGE TECHNIQUE: Multiple axial CT images of the brain were performed followed by sagittal and coronal rec onstructed images. The CT study is performed according to ALARA (as low as reasonably achievable) or ALARA/IMAGE GENTLY, with automatic adjustment of mA and/or kV according to patient size. Performed on: 02/17/2023 at 1:19 AM COMPARISON: Head CT performed on 02/02/2023 and brain MRI performed on 02/05/2023. FINDINGS: Brain: There is no evidence of mass, acute mass effect or midline shift. There are no acut e extra-axial fluid collections. There is no evidence of acute intracranial hemorrhage. The cerebra l sulci and ventricles are prominent consistent with mild cerebral volume loss. There are scattered a reas of decreased attenuation within the subcortical and periventricular white matter most likely due to mild chronic microangiopathy. The recently described acute right parietal lobe infarct is not w ell demonstrated on this examination. Paranasal Sinuses and Mastoids: There is no significant mucosal thickening of the paranasal sinuses. The mastoid air cells are clear. Orbits: The orbital contents are grossly unremarkable. Bones: No acute osseous abnormalities are identified. Soft Tissues: No focal soft tissue abnormalities are identified. IMPRESSION: 1. There is no evidence of acute intracranial pathology. 2. Mild cerebral volume loss with findings compatible with chronic microangiopathy. Electronically signed by: Yvette Owens DO 02/17/2023 1:41 AM CDT Due to temporary technical issues with the PACS/Fluency reporting system, reports are being signed by the in house radiologists without review as a courtesy to insure prompt reporting. The interpreting radiologist is fully responsible for the content of the report.
--- NOTE | 2023-02-17 22:38 | RAD REPORT ---
EXAM DESCRIPTION: RADChest Single View02/17/2023 12:04 am CLINICAL HISTORY: COUGH COMPARISON: Chest Single View dated 02/02/2023; Chest Single View dated 01/17/2023; Chest Pa And Lat (2 Views) dated 08/17/2022; Chest Single View dated 07/14/2018; Head Brain Wo Cont dated 02/17/2023 TECHNIQUE: Portable AP view of the chest. FINDINGS: The lungs are clear. No pneumothorax or effusion. The cardiomediastinal contours are unre markable. IMPRESSION: No acute cardiopulmonary process.
[2023-02-18 04:28] LABS: Absolute Lymphocytes (CBC) 1.4 K/uL (0.7-4.9); Hematocrit 37.5 % (39.6-49.0); Lymphocytes % 16.7 % (15.3-44.8); MCV 86.4 fL (80-100); MPV 7.5 fL (7.6-11.3); Platelets 149 thou/uL (152-406); RBC Red Blood Cell Count 4.34 M/uL (4.33-5.43)
[2023-02-18 04:48] LABS: Potassium 3.6 mEq/L (3.5-5.1); Troponin High Sensitivity 22.1 pg/mL (<58.9)
[2023-02-18] MEDS: INSULIN -REGULAR HUMAN 50 UNIT/0.5 ML ML SQ SCH ×4 (07:30→21:00)
[2023-02-18] MEDS: TAMSULOSIN 0.4 MG SR CAP PO SCH (08:55)
[2023-02-18] MEDS: CLOPIDOGREL 75 MG TABLET PO SCH (08:55)
[2023-02-18] MEDS: ASPIRIN EC 81 MG TAB PO SCH (08:55)
[2023-02-18] MEDS: ENOXAPARIN 40 MG/0.4 ML SQ SCH (08:55)
--- NOTE | 2023-02-18 13:16 | P.PN ---
Subjective Date of Service: 02/18/23 Chief Complaint: KARO, weakness No acute events overnight. He has not experienced any hallucination since admission. He reports that he feels generalized weakness. He denies any chest pain, palpitations, or shortness of breath. Review of Systems 10-point ROS is otherwise unremarkable Neurological: Confusion (hallucinations) Physical Examination - Vital Signs Temperature: 97.2 F Blood Pressure: 190/87 Pulse: 63 Respirations: 14 Pulse Ox (%): 98 Assessment And Plan - Plan - Physical Exam General: Alert, In no apparent distress, Oriented x3 HEENT: Atraumatic, Mucous membr. moist/pink, Sclerae nonicteric Neck: JVD not distended Respiratory: Clear to auscultation bilaterally, Normal air movement Cardiovascular: No edema, Regular rate/rhythm, No murmurs Gastrointestinal: Normal bowel sounds, Soft, Non-distended, No tenderness Musculoskeletal: No clubbing Integumentary: No rashes Neurological: Normal speech, Normal affect # Generalized Weakness with Visual Hallucinations # Recent Parietal Cerebrovascular Accident # Hyperlipidemia This morning on rounds, his daughter was at bedside. She mentioned that he was previously diagnosed with paranoid schizophrenia and bipolar disorder; however, he is not interested in seeking treatment for this. - Consulted Neurology - recommendations appreciated - MRI brain (02/05/2023) = "10 millimeter acute infarction right parietal lobe" - Continue aspirin, folic acid, atorvastatin, clopidogrel - Consulted Psychiatry - recommendations appreciated - Telemetry - EKG, serial troponin (17.0 -> 22.1) - Transthoracic echocardiogram (01/17/2023) = "1. normal left ventricular ejection fraction 55-60% 2. normal wall motion 3. mild aortic insufficiency" - Chest x-ray = "no acute cardiopulmonary process." - CT head = "1. There is no evidence of acute intracranial pathology. 2. Mild cerebral volume loss with findings compatible with chronic microangiopathy." - Carotid artery ultrasound = "mild atherosclerotic changes noted. Less than 50% stenosis of the ICAs bilaterally." - Consult PT # Hypertensive Urgency - Continue home atenolol, losartan - PRN hydralazine # KDIGO Stage I Acute Kidney Injury - Consulted Nephrology - recommendations appreciated - Creatinine = 1.71 -> 1.44 -> 1.35 - Urinalysis = unremarkable - Monitor creatinine and urine output - If worsening, obtain renal ultrasound - Renally dose medications # Benign Prostatic Hyperplasia - Continue home tamsulosin # Morbid Obesity - BMI 40.5 kg/m2 - Lifestyle modifications Hunter Baez M.D.
[2023-02-18] MEDS: FOLIC ACID 1 MG TABLET PO SCH (15:40)
[2023-02-18] MEDS: LOSARTAN POTASSIUM 50 MG TABLET PO SCH ×2 (15:41→21:02)
[2023-02-18] MEDS: atenoloL 25 MG TAB PO SCH ×2 (15:41→21:02)
--- NOTE | 2023-02-18 18:45 | P.PN ---
Date of Service: 02/19/23 Subjective: Physical Exam: Vitals: Reviewed Gen: Alert, Oriented, NAD CV: regular rate & rhythm, no edema Pulm: Respirations are clear bilaterally Abd: soft, nontender, nondistended MSK: no joint tenderness Integumentary: No rashes Neuro: normal speech, normal affect Problem List: Generalized Weakness with Visual Hallucinations Recent Parietal CVA Hyperlipidemia Hypertensive Urgency KARO BPH Morbid Obesity Plan: Neurology consulted Continue aspirin, folic acid, atorvastatin, clopidogrel Consulted Psychiatry - recommendations appreciated Monitor on telemetry PT consult Continue home atenolol, losartan PRN hydralazine Consulted Nephrology Monitor renal function Renally dose medications Continue home tamsulosin
[2023-02-18] MEDS: ATORVASTATIN 10 MG TAB PO SCH (21:03)
[2023-02-19 03:58] LABS: Potassium 3.7 mEq/L (3.5-5.1); Troponin High Sensitivity 25.4 pg/mL (<58.9)
[2023-02-19] MEDS: INSULIN -REGULAR HUMAN 50 UNIT/0.5 ML ML SQ SCH ×4 (07:30→21:00)
[2023-02-19] MEDS: atenoloL 25 MG TAB PO SCH ×2 (08:57→20:56)
[2023-02-19] MEDS: ENOXAPARIN 40 MG/0.4 ML SQ SCH (08:57)
[2023-02-19] MEDS: TAMSULOSIN 0.4 MG SR CAP PO SCH (08:57)
[2023-02-19] MEDS: FOLIC ACID 1 MG TABLET PO SCH (08:58)
[2023-02-19] MEDS: ASPIRIN EC 81 MG TAB PO SCH (08:58)
[2023-02-19] MEDS: CLOPIDOGREL 75 MG TABLET PO SCH (08:58)
[2023-02-19] MEDS: LOSARTAN POTASSIUM 50 MG TABLET PO SCH (08:58)
[2023-02-19] MEDS ORDERED: HYDRALAZINE HCL 20 MG/ML VIAL IV ONE (11:46)
[2023-02-19] MEDS: NIFEDIPINE XL 60 MG TABLET PO SCH (11:51)
--- NOTE | 2023-02-19 12:46 | P.PN ---
Nephrology note: (S) BP has been elevated this AM, pt has had mild WRIGHT, now better, Atenolol dose held this AM by RN due to HR < 60. Has received losartan, Nifedipine and Hydralazine IV. Has been OOB, ambulating short distance (O) Vitals reviewed in the EMR General: Alert, In no apparent distress, Oriented x3 HEENT: Atraumatic, Normocephalic, EOMI Neck: Supple Respiratory: Clear to auscultation bilaterally, Normal air movement Cardiovascular: No edema, Regular rate/rhythm, Normal S1 S2 Gastrointestinal: Soft and benign, Non-distended Musculoskeletal: No swelling, No contractures, No tenderness Integumentary: No rashes Neurological: Normal speech, Normal tone, Normal affect Laboratory Data (last 24 hrs) Conclusions/Impression: A/P) 1. Stage 1 KARO 2nd to mild pre-renal state, relative hypotension and concurrent ARB use, other. Resolved 2. Cr level downward trending with hydration and outside of some mild prior fluctuation in levels, has been within normal limits at other time, so pt may not have any underlying CKD of note. 3. Stopped IVF early on 4. Chronic HTN with recent small ischemic CVA. Pt was recently discharge on several anti hypertensive agents. 5. Centrally acting meds such as Clonidine can have various AE, recommended avoiding but BP is accelerated this AM. Resume ARB and CCB. F/u BP this afternoon, if BP remains elevated, I may add a thiazide diuretic coupled to his ARB. 6. If BP remains labile, on discharge recommend splitting timing of anti hypertensives and giving pt holding parameters and having HH monitor vitals and supervise/educate pt on medications. Mkye Lindquist MD, DEYANIRA
[2023-02-19] MEDS ORDERED: LOSARTAN POTASSIUM 50 MG TABLET PO ONE (13:00)
[2023-02-19] MEDS ORDERED: HYDRALAZINE HCL 20 MG/ML VIAL IV PRN (18:28)
[2023-02-19] MEDS ORDERED: TIZANIDINE 4 MG TABLET PO PRN (18:29)
[2023-02-19] MEDS ORDERED: CETIRIZINE HCL 5 MG TABLET PO PRN (18:29)
[2023-02-19] MEDS ORDERED: TRAMADOL HCL 50 MG TAB PO PRN (18:29)
[2023-02-19] MEDS: levETIRAcetam 500 MG TAB PO SCH (20:55)
[2023-02-19] MEDS: ATORVASTATIN 10 MG TAB PO SCH (20:56)
[2023-02-19] MEDS: GABAPENTIN 400 MG CAP PO SCH (20:56)
[2023-02-19] MEDS: cloNIDine HCL 0.1 MG TAB PO SCH (20:56)
[2023-02-19] MEDS: METHYL FOLATE PO SCH (20:57)
[2023-02-20 05:17] LABS: Troponin High Sensitivity 22.4 pg/mL (<58.9)
[2023-02-20] MEDS: INSULIN -REGULAR HUMAN 50 UNIT/0.5 ML ML SQ SCH ×4 (07:30→21:00)
[2023-02-20] MEDS: HOME MED 1 EA UNK (Biotin [Biotin] 1 MG Capsule) PO SCH (09:00)
[2023-02-20] MEDS: ZINC SULFATE 220 MG CAP PO SCH (09:00)
[2023-02-20] MEDS ORDERED: NIFEDIPINE XL 60 MG TABLET PO SCH (09:00)
[2023-02-20] MEDS: ENOXAPARIN 40 MG/0.4 ML SQ SCH (09:58)
[2023-02-20] MEDS: NIFEDIPINE XL 60 MG TABLET PO SCH (09:58)
[2023-02-20] MEDS: CLOPIDOGREL 75 MG TABLET PO SCH (09:59)
[2023-02-20] MEDS: GLUCOSAM/CHONDROI 500mg-400mg PO SCH (09:59)
[2023-02-20] MEDS: ASCORBIC ACID 500 MG TABLET PO SCH (09:59)
[2023-02-20] MEDS: atenoloL 25 MG TAB PO SCH ×2 (09:59→21:28)
[2023-02-20] MEDS: levETIRAcetam 500 MG TAB PO SCH ×2 (09:59→21:29)
[2023-02-20] MEDS: cloNIDine HCL 0.1 MG TAB PO SCH ×2 (09:59→21:00)
[2023-02-20] MEDS: FOLIC ACID 1 MG TABLET PO SCH (09:59)
[2023-02-20] MEDS: ASPIRIN EC 81 MG TAB PO SCH (10:00)
[2023-02-20] MEDS: CYANOCOBALAMIN 1,000 MCG TAB PO SCH (10:00)
[2023-02-20] MEDS: VITAMIN D 5,000 UNIT CAP PO SCH (10:00)
[2023-02-20] MEDS: GABAPENTIN 400 MG CAP PO SCH ×2 (10:00→21:28)
[2023-02-20] MEDS: LEVOTHYROXINE SOD 0.088 MG TAB PO SCH (10:03)
[2023-02-20] MEDS ORDERED: GABAPENTIN 400 MG CAP PO SCH (14:00)
[2023-02-20] MEDS ORDERED: HYDRALAZINE HCL 10 MG TABLET PO ONE (14:12)
[2023-02-20] MEDS ORDERED: TAMSULOSIN 0.4 MG SR CAP PO SCH (21:00)
[2023-02-20] MEDS: METHYL FOLATE PO SCH (21:00)
[2023-02-20] MEDS: ATORVASTATIN 10 MG TAB PO SCH (21:28)
[2023-02-20] MEDS: HYDRALAZINE HCL 25 MG TABLET PO SCH (21:29)
--- NOTE | 2023-02-20 22:32 | P.PN ---
Date of Service: 02/20/23 Vital Signs Temp Pulse Resp BP Pulse Ox 97.2 F 62 18 118/57 L 98 02/20/23 16:00 02/20/23 21:28 02/20/23 16:00 02/20/23 21:28 02/20/23 16:00 Medications Ascorbic Acid (Ascorbic Acid 500 Mg Tablet) 1,000 mg PO DAILY [facility] Last Admin: 02/20/23 09:59 Dose: 1,000 mg Aspirin (Aspirin Ec 81 Mg Tab) 81 mg PO DAILY [facility] Last Admin: 02/20/23 10:00 Dose: 81 mg Atenolol (Atenolol 25 Mg Tab) 25 mg PO BID [facility] Last Admin: 02/20/23 21:28 Dose: 25 mg Atorvastatin Calcium (Atorvastatin 10 Mg Tab) 10 mg PO BEDTIME [facility] Last Admin: 02/20/23 21:28 Dose: 10 mg Cetirizine HCl (Cetirizine Hcl 5 Mg Tablet) 10 mg PO DAILY PRN PRN Reason: ALLERGIES Last Admin: 02/20/23 09:59 Dose: 10 mg Cholecalciferol (Vitamin D 5,000 Unit Cap) 5,000 unit PO DAILY [facility] Last Admin: 02/20/23 10:00 Dose: 5,000 unit Clonidine HCl (Clonidine Hcl 0.1 Mg Tab) 0.05 mg PO BID [facility] Stop: 02/27/23 21:01 Last Admin: 02/20/23 21:00 Dose: Not Given Clopidogrel Bisulfate (Clopidogrel 75 Mg Tablet) 75 mg PO DAILY [facility] Last Admin: 02/20/23 09:59 Dose: 75 mg Cyanocobalamin (Cyanocobalamin 1,000 Mcg Tab) 1,000 mcg PO DAILY [facility] Last Admin: 02/20/23 10:00 Dose: 1,000 mcg Enoxaparin Sodium (Enoxaparin 40 Mg/0.4 Ml) 40 mg SQ DAILY [facility] Last Admin: 02/20/23 09:58 Dose: 40 mg Folic Acid (Folic Acid 1 Mg Tablet) 1 mg PO DAILY [facility] Last Admin: 02/20/23 09:59 Dose: 1 mg Gabapentin (Gabapentin 400 Mg Cap) 800 mg PO BEDTIME [facility] Last Admin: 02/20/23 21:28 Dose: 800 mg Gabapentin (Gabapentin 400 Mg Cap) 400 mg PO 1400 [facility] Last Admin: 02/20/23 15:30 Dose: 400 mg Gabapentin (Gabapentin 400 Mg Cap) 400 mg PO DAILY [facility] Last Admin: 02/20/23 10:00 Dose: 400 mg Glucosamine/Chondroitin (Glucosam/Chondroi 500mg-400mg) 1 cap PO DAILY [facility] Last Admin: 02/20/23 09:59 Dose: 1 cap Home Med (Biotin [Biotin]) 1 mg PO DAILY [facility] Last Admin: 02/20/23 09:00 Dose: Not Given Home Med (Methyl Folate) 1,000 mg PO BEDTIME [facility] Last Admin: 02/20/23 21:00 Dose: Not Given Hydralazine HCl (Hydralazine Hcl 20 Mg/Ml Vial) 10 mg IV Q4HP PRN PRN Reason: Goal to achieve SBP in comment Hydralazine HCl (Hydralazine Hcl 25 Mg Tablet) 25 mg PO TID [facility] Last Admin: 02/20/23 21:29 Dose: 25 mg Insulin Human Regular (Insulin -Regular Human 50 Unit/0.5 Ml Ml) 0 unit SQ ACHS [facility]; Protocol Last Admin: 02/20/23 21:00 Dose: Not Given Levetiracetam (Levetiracetam 500 Mg Tab) 500 mg PO BID [facility] Last Admin: 02/20/23 21:29 Dose: 500 mg Levothyroxine Sodium (Levothyroxine Sod 0.088 Mg Tab) 0.088 mg PO ACB [facility] Last Admin: 02/20/23 10:03 Dose: 0.088 mg Losartan Potassium (Losartan Potassium 50 Mg Tablet) 100 mg PO DAILY [facility] Last Admin: 02/20/23 09:59 Dose: 100 mg Nifedipine (Nifedipine Xl 60 Mg Tablet) 60 mg PO DAILY [facility] Last Admin: 02/20/23 09:58 Dose: 60 mg Ondansetron HCl (Ondansetron 4 Mg/2 Ml Vial) 4 mg IV Q6HP PRN PRN Reason: NAUSEA / VOMITING Sodium Chloride (Flush Normal Saline 10 Ml) 10 ml IV BID [facility] Last Admin: 02/20/23 21:29 Dose: 10 ml Tamsulosin HCl (Tamsulosin 0.4 Mg Sr Cap) 0.4 mg PO BEDTIME [facility] Last Admin: 02/20/23 21:27 Dose: 0.4 mg Tizanidine HCl (Tizanidine 4 Mg Tablet) 4 mg PO TID PRN PRN Reason: Pain scale 2-4 (Mild) Tramadol HCl (Tramadol Hcl 50 Mg Tab) 50 mg PO TID PRN PRN Reason: Pain scale 5-7 (Moderate) Zinc Sulfate (Zinc Sulfate 220 Mg Cap) 220 mg PO DAILY [facility] Last Admin: 02/20/23 09:00 Dose: 220 mg Assessment/ Plan: Nephrology No dyspnea No chest pain No acute events overnight Vitals, medications, blood work and imaging reviewed in the chart. NAD. Obese. NCAT. MMM. Neck supple. Normal respiratory effort/ CTA. RRR. Abd ND. No C/C. LE Edema 1+. No rash. AAO. Normal speech. EXAM DESCRIPTION: RADChest Single View02/17/2023 12:04 am CLINICAL HISTORY: COUGH COMPARISON: Chest Single View dated 02/02/2023; Chest Single View dated 01/17/2023; Chest Pa And Lat (2 Views) dated 08/17/2022; Chest Single View dated 07/14/2018; Head Brain Wo Cont dated 02/17/2023 TECHNIQUE: Portable AP view of the chest. FINDINGS: The lungs are clear. No pneumothorax or effusion. The cardiomediastinal contours are unremarkable. IMPRESSION: No acute cardiopulmonary process. EXAM DESCRIPTION: US - CP - 02/17/2023 6:11 am CLINICAL HISTORY: dysarthria, recent cva COMPARISON: Head C Spine Mpr Wo Con dated 01/17/2023 TECHNIQUE: Real-time sonographic grayscale, color duplex, and spectral wave Doppler evaluation of both carotid systems was performed. FINDINGS: Normal high resistance waveforms are noted in both external carotid arteries. The common carotid arteries and internal carotid arteries show normal low resistance waveforms. Mild smooth echogenic noncalcified plaque formation is seen at the carotid bulbs more so on the right and bilateral proximal ICAs. Peak systolic velocity less than 125 cm/ sec bilaterally. ICA/CCA peak systolic ratios less than 2.0 bilaterally. Antegrade flow seen in both vertebral arteries. IMPRESSION: Mild atherosclerotic changes noted. Less than 50% stenosis of the ICAs bilaterally. LEFT VENTRICULAR WALL MOTION: NORMAL DOPPLER/COLOR FLOW: MILD AORTIC INSUFFICIENCY COMMENTS: 1. NORMAL LEFT VENTRICULAR EJECTION FRACTION 55-60% 2. NORMAL WALL MOTION 3. MILD AORTIC INSUFFICIENCY Stage I KARO CKD II -No NSAIDs HTN with CKD -Continue Atenolol -Continue Losartan & Nifedipine LE Edema -Low sodium diet Anemia in chronic illness -Monitor H&H BPH with LUTS -Continue tamsulosin Hospitalist notes reviewed.
[2023-02-21] MEDS: INSULIN -REGULAR HUMAN 50 UNIT/0.5 ML ML SQ SCH (07:30)
[2023-02-21] MEDS: FOLIC ACID 1 MG TABLET PO SCH (08:58)
[2023-02-21] MEDS: LEVOTHYROXINE SOD 0.088 MG TAB PO SCH (08:58)
[2023-02-21] MEDS: ASPIRIN EC 81 MG TAB PO SCH (08:58)
[2023-02-21] MEDS: levETIRAcetam 500 MG TAB PO SCH (08:58)
[2023-02-21] MEDS: CLOPIDOGREL 75 MG TABLET PO SCH (08:59)
[2023-02-21] MEDS: GLUCOSAM/CHONDROI 500mg-400mg PO SCH (08:59)
[2023-02-21] MEDS: HYDRALAZINE HCL 25 MG TABLET PO SCH (08:59)
[2023-02-21] MEDS: ASCORBIC ACID 500 MG TABLET PO SCH (08:59)
[2023-02-21] MEDS: GABAPENTIN 400 MG CAP PO SCH (09:00)
[2023-02-21] MEDS: VITAMIN D 5,000 UNIT CAP PO SCH (09:00)
[2023-02-21] MEDS: ZINC SULFATE 220 MG CAP PO SCH (09:00)
[2023-02-21] MEDS: HOME MED 1 EA UNK (Biotin [Biotin] 1 MG Capsule) PO SCH (09:00)
[2023-02-21] MEDS: NIFEDIPINE XL 60 MG TABLET PO SCH (09:00)
[2023-02-21] MEDS ORDERED: LOSARTAN POTASSIUM 50 MG TABLET PO SCH (09:00)
[2023-02-21] MEDS: atenoloL 25 MG TAB PO SCH (09:01)
[2023-02-21] MEDS: cloNIDine HCL 0.1 MG TAB PO SCH (09:01)
[2023-02-21] MEDS: ENOXAPARIN 40 MG/0.4 ML SQ SCH (09:02)
[2023-02-21 09:03] VITALS: BP 130/66
[2023-02-21] MEDS: CYANOCOBALAMIN 1,000 MCG TAB PO SCH (09:03)
--- NOTE | 2023-02-21 09:13 | P.PN ---
Date of Service: 02/21/23 Vital Signs Temp Pulse Resp BP Pulse Ox 97.7 F 54 22 H 130/66 96 02/21/23 04:00 02/21/23 09:01 02/21/23 04:00 02/21/23 09:01 02/21/23 04:00 Medications Ascorbic Acid (Ascorbic Acid 500 Mg Tablet) 1,000 mg PO DAILY [facility] Last Admin: 02/21/23 08:59 Dose: 1,000 mg Aspirin (Aspirin Ec 81 Mg Tab) 81 mg PO DAILY [facility] Last Admin: 02/21/23 08:58 Dose: 81 mg Atenolol (Atenolol 25 Mg Tab) 25 mg PO BID [facility] Last Admin: 02/21/23 09:01 Dose: 25 mg Atorvastatin Calcium (Atorvastatin 10 Mg Tab) 10 mg PO BEDTIME [facility] Last Admin: 02/20/23 21:28 Dose: 10 mg Cetirizine HCl (Cetirizine Hcl 5 Mg Tablet) 10 mg PO DAILY PRN PRN Reason: ALLERGIES Last Admin: 02/20/23 09:59 Dose: 10 mg Cholecalciferol (Vitamin D 5,000 Unit Cap) 5,000 unit PO DAILY [facility] Last Admin: 02/21/23 09:00 Dose: 5,000 unit Clonidine HCl (Clonidine Hcl 0.1 Mg Tab) 0.05 mg PO BID [facility] Stop: 02/27/23 21:01 Last Admin: 02/21/23 09:01 Dose: 0.05 mg Clopidogrel Bisulfate (Clopidogrel 75 Mg Tablet) 75 mg PO DAILY [facility] Last Admin: 02/21/23 08:59 Dose: 75 mg Cyanocobalamin (Cyanocobalamin 1,000 Mcg Tab) 1,000 mcg PO DAILY [facility] Last Admin: 02/21/23 09:03 Dose: 1,000 mcg Enoxaparin Sodium (Enoxaparin 40 Mg/0.4 Ml) 40 mg SQ DAILY [facility] Last Admin: 02/21/23 09:02 Dose: 40 mg Folic Acid (Folic Acid 1 Mg Tablet) 1 mg PO DAILY [facility] Last Admin: 02/21/23 08:58 Dose: 1 mg Gabapentin (Gabapentin 400 Mg Cap) 800 mg PO BEDTIME [facility] Last Admin: 02/20/23 21:28 Dose: 800 mg Gabapentin (Gabapentin 400 Mg Cap) 400 mg PO 1400 [facility] Last Admin: 02/20/23 15:30 Dose: 400 mg Gabapentin (Gabapentin 400 Mg Cap) 400 mg PO DAILY [facility] Last Admin: 02/21/23 09:00 Dose: 400 mg Glucosamine/Chondroitin (Glucosam/Chondroi 500mg-400mg) 1 cap PO DAILY [facility] Last Admin: 02/21/23 08:59 Dose: 1 cap Home Med (Biotin [Biotin]) 1 mg PO DAILY [facility] Last Admin: 02/21/23 09:00 Dose: Not Given Home Med (Methyl Folate) 1,000 mg PO BEDTIME [facility] Last Admin: 02/20/23 21:00 Dose: Not Given Hydralazine HCl (Hydralazine Hcl 20 Mg/Ml Vial) 10 mg IV Q4HP PRN PRN Reason: Goal to achieve SBP in comment Hydralazine HCl (Hydralazine Hcl 25 Mg Tablet) 25 mg PO TID [facility] Last Admin: 02/21/23 08:59 Dose: 25 mg Insulin Human Regular (Insulin -Regular Human 50 Unit/0.5 Ml Ml) 0 unit SQ ACHS [facility]; Protocol Last Admin: 02/21/23 07:30 Dose: Not Given Levetiracetam (Levetiracetam 500 Mg Tab) 500 mg PO BID [facility] Last Admin: 02/21/23 08:58 Dose: 500 mg Levothyroxine Sodium (Levothyroxine Sod 0.088 Mg Tab) 0.088 mg PO ACB [facility] Last Admin: 02/21/23 08:58 Dose: 0.088 mg Losartan Potassium (Losartan Potassium 50 Mg Tablet) 100 mg PO DAILY [facility] Last Admin: 02/20/23 09:59 Dose: 100 mg Nifedipine (Nifedipine Xl 60 Mg Tablet) 60 mg PO DAILY [facility] Last Admin: 02/21/23 09:00 Dose: 60 mg Ondansetron HCl (Ondansetron 4 Mg/2 Ml Vial) 4 mg IV Q6HP PRN PRN Reason: NAUSEA / VOMITING Sodium Chloride (Flush Normal Saline 10 Ml) 10 ml IV BID [facility] Last Admin: 02/21/23 09:01 Dose: 10 ml Tamsulosin HCl (Tamsulosin 0.4 Mg Sr Cap) 0.4 mg PO BEDTIME [facility] Last Admin: 02/20/23 21:27 Dose: 0.4 mg Tizanidine HCl (Tizanidine 4 Mg Tablet) 4 mg PO TID PRN PRN Reason: Pain scale 2-4 (Mild) Tramadol HCl (Tramadol Hcl 50 Mg Tab) 50 mg PO TID PRN PRN Reason: Pain scale 5-7 (Moderate) Zinc Sulfate (Zinc Sulfate 220 Mg Cap) 220 mg PO DAILY [facility] Last Admin: 02/21/23 09:00 Dose: 220 mg Assessment/ Plan: Nephrology No dyspnea No chest pain No acute events overnight Vitals, medications, blood work and imaging reviewed in the chart. NAD. Obese. NCAT. MMM. Neck supple. Normal respiratory effort. RRR. Abd ND. No C/C. LE Edema 1+. No rash. AAO. Normal speech. EXAM DESCRIPTION: RADChest Single View02/17/2023 12:04 am CLINICAL HISTORY: COUGH COMPARISON: Chest Single View dated 02/02/2023; Chest Single View dated 01/17/2023; Chest Pa And Lat (2 Views) dated 08/17/2022; Chest Single View dated 07/14/2018; Head Brain Wo Cont dated 02/17/2023 TECHNIQUE: Portable AP view of the chest. FINDINGS: The lungs are clear. No pneumothorax or effusion. The cardiomediastinal contours are unremarkable. IMPRESSION: No acute cardiopulmonary process. EXAM DESCRIPTION: US - CP - 02/17/2023 6:11 am CLINICAL HISTORY: dysarthria, recent cva COMPARISON: Head C Spine Mpr Wo Con dated 01/17/2023 TECHNIQUE: Real-time sonographic grayscale, color duplex, and spectral wave Doppler evaluation of both carotid systems was performed. FINDINGS: Normal high resistance waveforms are noted in both external carotid arteries. The common carotid arteries and internal carotid arteries show normal low resistance waveforms. Mild smooth echogenic noncalcified plaque formation is seen at the carotid bulbs more so on the right and bilateral proximal ICAs. Peak systolic velocity less than 125 cm/ sec bilaterally. ICA/CCA peak systolic ratios less than 2.0 bilaterally. Antegrade flow seen in both vertebral arteries. IMPRESSION: Mild atherosclerotic changes noted. Less than 50% stenosis of the ICAs bilaterally. LEFT VENTRICULAR WALL MOTION: NORMAL DOPPLER/COLOR FLOW: MILD AORTIC INSUFFICIENCY COMMENTS: 1. NORMAL LEFT VENTRICULAR EJECTION FRACTION 55-60% 2. NORMAL WALL MOTION 3. MILD AORTIC INSUFFICIENCY Stage I KARO CKD II -No NSAIDs HTN with CKD -Continue Atenolol -Continue Losartan & Nifedipine LE Edema -Low sodium diet Anemia in chronic illness -Monitor H&H BPH with LUTS -Continue tamsulosin Peripheral Neuropathy -Continue Gabapentin Hospitalist notes reviewed.
[2023-02-21 09:52] VITALS: TEMP 97.9
== END 2023-02-21 11:26 | disposition home or self-care (01) | DRG 683 ==
LOC: ER 22:43 → ERHOLD 02-17 02:41 → 2ND 02-17 03:55 → OBSVTOIN 02-19 15:02
PROVIDERS: ADMIT Internal Medicine; ATTEND Hospitalist
DX: N17.9 Acute kidney failure, unspecified (principal); Z68.41 Body mass index [BMI] 40.0-44.9, adult; E66.01 Morbid (severe) obesity due to excess calories; I16.0 Hypertensive urgency; N40.1 Benign prostatic hyperplasia with lower urinary tract symptoms; F41.9 Anxiety disorder, unspecified; I12.9 Hypertensive chronic kidney disease with stage 1 through stage 4 chronic kidney disease, or unspecified chronic kidney disease; N18.2 Chronic kidney disease, stage 2 (mild); E11.22 Type 2 diabetes mellitus with diabetic chronic kidney disease; E11.42 Type 2 diabetes mellitus with diabetic polyneuropathy; D63.1 Anemia in chronic kidney disease; E78.5 Hyperlipidemia, unspecified; R44.1 Visual hallucinations; Z60.2 Problems related to living alone; Z86.73 Personal history of transient ischemic attack (TIA), and cerebral infarction without residual deficits; Z79.02 Long term (current) use of antithrombotics/antiplatelets; Z79.890 Hormone replacement therapy; Z79.899 Other long term (current) drug therapy; Z20.822 Contact with and (suspected) exposure to COVID-19
CPT/HCPCS: 36415; 70450; 71045; 80048; 80076; 81003; 82140; 82550; 82947; 83036; 83735; 83880; 84439; 84443; 84484; 85025; 85610; 87811; 92507; 92523; 93005; 93880; 96360; 96361; 97116; 97161; 97530; 99284; G0378; J0360; J1650; J7030

== ENCOUNTER 2024-10-21 06:30 | Emergency (ER) | payer OTHER ==
[2024-10-21] MEDS ORDERED: KETOROLAC 30 MG/ML INJ ONE (07:44)
[2024-10-21] MEDS ORDERED: DIPHENHYDRAMINE 50 MG/ML VIAL ONE (07:44)
[2024-10-21] MEDS ORDERED: METOCLOPRAMIDE 10 MG/2mL INJ ONE (07:45)
[2024-10-21] MEDS ORDERED: NA CHLORIDE 0.9% 50 ML ONE (07:45)
[2024-10-21] MEDS ORDERED: NA CHLORIDE 0.9% 1,000 ML ONE (07:45)
--- NOTE | 2024-10-21 07:51 | RAD REPORT ---
EXAMINATION: ONE VIEW CHEST XR CLINICAL INDICATION: COUGH TECHNIQUE: Frontal chest projection is submitted. Examination is limited by patient positioning and t echnique. COMPARISON: 02/16/2023 FINDINGS: The lungs are well inflated and clear. The heart is upper limit of normal in size. No displaced fract ures identified. IMPRESSION: No acute intrathoracic abnormalities.
[2024-10-21 08:39] LABS: Absolute Eosinophils 0.2 K/uL (0-0.5); Absolute Lymphocytes (CBC) 1.2 K/uL (0.7-4.9); Absolute Monocytes 0.6 K/uL (0.1-1.3); Absolute Neutrophil 6.7 K/uL (1.8-8.0); Basophils % 0.6 % (0-1.3); Eosinophils % 2.3 % (0-4.4); Hematocrit 39.6 % (39.6-49.0); Hemoglobin 13.8 g/dL (13.6-17.9); Lymphocytes % 14.3 % (15.3-44.8); MCH 28.8 pg (27.0-35.0); MCHC 34.9 g/dL (32.0-36.0); MCV 82.6 fL (80-100); MPV 7.8 fL (7.6-11.3); Monocytes % 6.5 % (3.3-12.3); Neutrophils % 76.3 % (41.7-73.7); Platelets 170 thou/uL (152-406); RBC Red Blood Cell Count 4.79 M/uL (4.33-5.43); Red Cell Distribution Width 14.5 % (12.1-15.2)
[2024-10-21 08:44] LABS: PT Prothrombin Time 11.6 SECONDS (10-13.0); Protime INR 1.02
[2024-10-21 09:00] LABS: ALT/SGPT 20 U/L (16-61); AST/SGOT 16 U/L (15-37); Albumin/Globulin Ratio 1.1 (1.1-1.8); Alkaline Phosphatase 149 U/L (45-117); Anion Gap 9.5 mEq/L (5.0-15.0); BUN Blood Urea Nitrogen 20 mg/dL (7-18); Bicarbonate 26 mEq/L (21-32); Bilirubin Total 0.5 mg/dL (0.2-1.0); Globulin 3.8 g/dL (2.3-3.5); Glomerular Filtration Rate 59 ml/min (=/>90); Glucose Level 120 mg/dL (74-106); Magnesium 2.2 mg/dL (1.6-2.4); NT PRO-BNP 248 pg/mL (<125); Potassium 3.5 mEq/L (3.5-5.1); Protein, Total 7.8 g/dL (6.4-8.2); Sodium Level 141 mEq/L (136-145); Troponin High Sensitivity 21.4 pg/mL (<58.9)
[2024-10-21 09:05] LABS: Bilirubin Direct < 0.2 mg/dL (0-0.2); Bilirubin Indirect, Calculated 0.3 mg/dL (0.2-0.8)
--- NOTE | 2024-10-21 09:51 | RAD REPORT ---
EXAM: CT brain without contrast HISTORY: Dizziness;Headache COMPARISON: 02/17/2023 TECHNIQUE: Multiple contiguous axial images were obtained and a CT of the brain without contrast. Sag ittal and coronal reformats were performed. One or more of the following dose reduction techniques were used: Automated exposure control, adjust ment of the mA and/or kV according to patient size, and/or iterative reconstruction. FINDINGS: No evidence of hydrocephalus, intracranial hemorrhage, or extra-axial fluid collection. Mild brain atrophy with mild periventricular and deep white matter chronic microvascular ischemic ch anges present. No evidence of midline shift or areas of brain edema. The calvarium is intact. The visualized paranasal sinuses and mastoid air cells are essentially clear . IMPRESSION: No evidence of acute intracranial abnormality.
--- NOTE | 2024-10-21 09:57 | RAD REPORT ---
EXAMINATION: CTA HEAD CLINICAL INDICATION: HEADACHE TECHNIQUE: Axial CT images were obtained through the head after intravenous contrast utilizing angiog raphic protocol with 3D post-processing (maximum intensity projection images, volume rendered images and/or shaded surface rendered images). One or more of the following dose reduction technique s were used: Automated exposure control, adjustment of the mA and/or kV according to patient size, and/or iterative reconstruction. Unless otherwise specified, incidental findings do not require dedic ated imaging follow-up. COMPARISON: No prior exam. FINDINGS: ICA: The petrous, cavernous, and supraclinoid segments of the bilateral internal carotid arteries are normal. The ophthalmic artery origins are visualized and normal. The posterior communicating arteries are patent. JOSÉ: Anterior cerebral arteries are normal bilaterally. The anterior communicating artery is patent. MCA: Middle cerebral arteries are normal bilaterally. CLOTH EDGE SINGER: Posterior cerebral arteries are normal bilaterally. Vertebrobasilar: The vertebral arteries are patent. The basilar artery is normal in appearance. 3D images confirm these findings. IMPRESSION: No significant flow abnormality is identified.
--- NOTE | 2024-10-21 10:02 | RAD REPORT ---
EXAMINATION: CTA NECK CLINICAL INDICATION: PAIN TECHNIQUE: Axial CT images were obtained from the aortic arch to the skull base after intravenous con trast utilizing angiographic protocol with 3D post-processing (maximum intensity projection images, volume rendered images and/or shaded surface rendered images). One or more of the following dose redu ction techniques were used: Automated exposure control, adjustment of the mA and/or kV according to patient size, and/or iterative reconstruction. Unless otherwise specified, incidental findings do not require dedicated imaging follow-up. COMPARISON: No prior exam. FINDINGS: AORTA: The imaged aortic arch is normal. CCA: The common carotid arteries are patent and normal in caliber. ICA/ECA: Mild hard plaque is seen involving the right carotid bulb. Minimal hard plaque is seen invol ving the left carotid bulb. No significant carotid stenosis bilaterally. VERTEBRAL: The cervical vertebral arteries are patent. The vertebral arteries are codominant. SOFT TISSUE: No significant neck soft tissue abnormalities. The visualized lung apices are clear. 3D images confirm these findings. IMPRESSION: Mild hard plaque is seen right carotid bulb without a significant stenosis present. NASCET criteria used. Mild 0-49% stenosis Moderate 50-69% stenosis Severe 70-99% stenosis
--- NOTE | 2024-10-21 10:04 | ER ---
Nurse's Notes [facility] Name: Jose Hoyt Age: 69 yrs Sex: Male : 1955 Arrival Date: 10/21/2024 Time: 06:30 Bed 15 Private MD: Diagnosis: Headache Presentation: 10/21 06:59 Chief complaint: Patient states: PT STATES HE WAS SLEEPING AND WOKE UP DUE TO A br2 HEADACHE. PT C/O PRESSURE/CONSTANT PAIN TO OCCIPITAL AREA. DENIES BLURRED VISION OR LIGHT SENSITIVITY. Coronavirus screen: Client denies travel out of the [place] in the last 14 days. Ebola Screen: Patient denies exposure to infectious person. Initial Sepsis Screen: Does the patient meet any 2 criteria? No. Patient's initial sepsis screen is negative. Does the patient have a suspected source of infection? No. Patient's initial sepsis screen is negative. Risk Assessment: Do you want to hurt yourself or someone else?. Onset of symptoms was October 21, 2024 at 03:00. 06:59 Method Of Arrival: Ambulatory br2 06:59 Acuity: SANDY 3 br2 Triage Assessment: 07:03 Headache History: The patient has had previous headaches and this one is less severe br2 than previous episodes. General: Appears uncomfortable, Behavior is calm, cooperative. Pain: Complains of pain in right side of the back of head Pain currently is 7 out of 10 on a pain scale. Pain began 4 hours ago. Neuro: [place] Agitation-Sedation Scale (RASS): 0 - Alert and Calm Level of Consciousness is awake, alert, obeys commands, Oriented to person, place, time, situation. Historical: - Allergies: 07:03 No Known Allergies; br2 - Immunization history:: Adult Immunizations up to date. - Infectious Disease History:: Denies. - Social history:: Smoking status: Patient denies any tobacco usage or history of. Patient/guardian denies using alcohol, street drugs. - Family history:: not pertinent. Screenin:29 [facility] ED Fall Risk Assessment (Adult) History of falling in the last 3 months, db including since admission No falls in past 3 months (0 pts) Confusion or Disorientation No (0 pts) Intoxicated or Sedated No (0 pts) Impaired Gait No (0 pts) Mobility Assist Device Used No (0 pt) Altered Elimination No (0 pt) Score/Fall Risk Level 0 - 2 = Low Risk Oriented to surroundings, Maintained a safe environment. Abuse screen: Denies threats or abuse. Denies injuries from another. Nutritional screening: No deficits noted. Tuberculosis screening: No symptoms or risk factors identified. Assessment: 07:12 Reassessment: Patient appears in no apparent distress at this time. Patient and/or db family updated on plan of care and expected duration. Pain level reassessed. Patient is alert, oriented x 3, equal unlabored respirations, skin warm/dry/pink. General: Appears in no apparent distress. comfortable, Behavior is calm, cooperative. Neuro: Level of Consciousness is awake, alert, obeys commands, Oriented to person, place, time, situation. Respiratory: Airway is patent Respiratory effort is even, unlabored, Respiratory pattern is regular, symmetrical. 09:00 Reassessment: Patient appears in no apparent distress at this time. Patient and/or db family updated on plan of care and expected duration. Pain level reassessed. Patient is alert, oriented x 3, equal unlabored respirations, skin warm/dry/pink. 10:29 Reassessment: Patient appears in no apparent distress at this time. Patient and/or db family updated on plan of care and expected duration. Pain level reassessed. Patient is alert, oriented x 3, equal unlabored respirations, skin warm/dry/pink. Patient states feeling better. Patient states symptoms have improved. Pain: Denies pain. Vital Signs: 06:59 BP 176 / 76; Pulse 99; Resp 18; Temp 98.7; Pulse Ox 97% on R/A; Weight 102.06 kg; br2 Height 5 ft. 3 in. ; Pain 8/10; 08:00 BP 145 / 68; Pulse 88; Resp 16; Pulse Ox 98% on R/A; db 10:19 BP 118 / 64; Pulse 73; Resp 16; Pulse Ox 98% on R/A; db 06:59 Body Mass Index 39.86 (102.06 kg, 160.02 cm) br2 06:59 Pain Scale: Adult br2 [place] Coma Score: 08:10 Eye Response: spontaneous(4). Motor Response: obeys commands(6). Verbal Response: noe oriented(5). Total: 15. ED Course: 06:34 Patient arrived in ED. gm2 07:03 Triage completed. br2 07:04 Taylor Garza, RADHA is Primary Nurse. db 07:12 Arm band placed on Patient placed in an exam room. db 07:16 Gigi Mendoza MD is Attending Physician. noe 07:44 XRAY Chest (1 view) In Process Unspecified. EDMS 08:01 Accessed peripheral vein via ultrasound, utilizing dynamic ultrasound technique using hb per hospital protocol. Clean \T\ dry. Dressing intact. Good blood return. Flushes easily. 20g RFA. 09:31 CT Head Brain wo Cont In Process Unspecified. EDMS 09:31 CT Head Angio In Process Unspecified. EDMS 09:31 CT Neck Angio In Process Unspecified. EDMS 10:03 Simon Ayoub MD is Referral Physician. noe 10:29 Patient has correct armband on for positive identification. Bed in low position. Call db light in reach. Side rails up X 1. Provided Education on: DISCHARGE AND PRESCRIPTIONS. Client placed on continuous cardiac and pulse oximetry monitoring. NIBP monitoring applied. nuclear monitoring technician on. Pulse ox on. NIBP on. Warm blanket given. Pillow given. 10:29 No provider procedures requiring assistance completed. IV discontinued, intact, db bleeding controlled, No redness/swelling at site. Administered Medications: 08:02 Drug: NS 0.9% IV 1000 ml IV at 1000 ml once; to be given as a bolus over 60 minutes db Route: IV; Rate: 1000 ml; Site: right forearm; 10:35 Follow up: Response: No adverse reaction; IV Status: Completed infusion; IV Intake: db 1000ml 08:02 Drug: metoCLOPramide IVP 10 mg IVP once; over 1 to 2 minutes Route: IVP; Site: right db forearm; 10:30 Follow up: Response: No adverse reaction db 08:03 Drug: diphenhydrAMINE IVP 25 mg IVP once Route: IVP; Site: right forearm; db 10:30 Follow up: Response: No adverse reaction db 08:05 Drug: Ketorolac IVP 15 mg IVP once Route: IVP; Site: right forearm; db 10:30 Follow up: Response: No adverse reaction db Medication: 10:29 VIS not applicable for this client. db Intake: 10:35 IV: 1000ml; Total: 1000ml. db Outcome: 10:03 Discharge ordered by . noe 10:29 Discharged to home ambulatory, db 10:29 Condition: stable 10:29 Discharge instructions given to patient, Instructed on discharge instructions, follow up and referral plans. Prescriptions given X 3, 10:36 Patient left the ED. db Signatures: Dispatcher [employer] Gigi Mckinney MD MD cha Baxter, Heather, RN RADHA Taylor Garza RN RN Swetha Ramirez 2 Veronica Still RN RN br2
--- NOTE | 2024-10-21 10:04 | EDPHYS ---
Physician Documentation [facility] Name: Jose Hoyt Age: 69 yrs Sex: Male : 1955 Arrival Date: 10/21/2024 Time: 06:30 Bed 15 Private MD: ED Physician Gigi Mendoza HPI: 10/21 08:09 This 69 yrs old Male presents to ER via Ambulatory with complaints of Headache.noe 08:09 The patient complains of pain to the top of head, left frontal area and right frontal noe area. The patient describes the headache as aching. Onset: The symptoms/episode began/occurred this morning. Associated signs and symptoms: The patient has no apparent associated signs or symptoms. Severity of symptoms: At its worst the pain was mild, moderate, in the emergency department the pain has improved, moderately. The symptoms are alleviated by nothing. the symptoms are aggravated by nothing. The patient has experienced similar episodes in the past, multiple times. Historical: - Allergies: 07:03 No Known Allergies; br2 - Immunization history:: Adult Immunizations up to date. - Infectious Disease History:: Denies. - Social history:: Smoking status: Patient denies any tobacco usage or history of. Patient/guardian denies using alcohol, street drugs. - Family history:: not pertinent. ROS: 08:09 Constitutional: Negative for fever, chills, and weight loss, Eyes: Negative for injury, noe pain, redness, and discharge, ENT: Negative for injury, pain, and discharge, Neck: Negative for injury, pain, and swelling, Cardiovascular: Negative for chest pain, palpitations, and edema, Respiratory: Negative for shortness of breath, cough, wheezing, and pleuritic chest pain, Abdomen/GI: Negative for abdominal pain, nausea, vomiting, diarrhea, and constipation, Back: Negative for injury and pain, : Negative for injury, bleeding, discharge, and swelling, MS/Extremity: Negative for injury and deformity, Skin: Negative for injury, rash, and discoloration, Psych: Negative for depression, anxiety, suicide ideation, homicidal ideation, and hallucinations, Allergy/Immunology: Negative for hives, rash, and allergies, Endocrine: Negative for neck swelling, polydipsia, polyuria, polyphagia, and marked weight changes, Hematologic/Lymphatic: Negative for swollen nodes, abnormal bleeding, and unusual bruising, 08:09 Neuro: Positive for headache, Exam: 08:09 Constitutional: This is a well developed, well nourished patient who is awake, alert, noe and in no acute distress. Head/Face: Normocephalic, atraumatic. Eyes: Pupils equal round and reactive to light, extra-ocular motions intact. Lids and lashes normal. Conjunctiva and sclera are non-icteric and not injected. Cornea within normal limits. Periorbital areas with no swelling, redness, or edema. ENT: Nares patent. No nasal discharge, no septal abnormalities noted. Tympanic membranes are normal and external auditory canals are clear. Oropharynx with no redness, swelling, or masses, exudates, or evidence of obstruction, uvula midline. Mucous membranes moist. Neck: Trachea midline, no thyromegaly or masses palpated, and no cervical lymphadenopathy. Supple, full range of motion without nuchal rigidity, or vertebral point tenderness. No Meningismus. Chest/axilla: Normal chest wall appearance and motion. Nontender with no deformity. No lesions are appreciated. Cardiovascular: Regular rate and rhythm with a normal S1 and S2. No gallops, murmurs, or rubs. Normal PMI, no JVD. No pulse deficits. Respiratory: Lungs have equal breath sounds bilaterally, clear to auscultation and percussion. No rales, rhonchi or wheezes noted. No increased work of breathing, no retractions or nasal flaring. Abdomen/GI: Soft, non-tender, with normal bowel sounds. No distension or tympany. No guarding or rebound. No evidence of tenderness throughout. Back: No spinal tenderness. No costovertebral tenderness. Full range of motion. Male : Normal genitalia with no discharge or lesions. Skin: Warm, dry with normal turgor. Normal color with no rashes, no lesions, and no evidence of cellulitis. MS/ Extremity: Pulses equal, no cyanosis. Neurovascular intact. Full, normal range of motion., bilateral aka Neuro: Awake and alert, GCS 15, oriented to person, place, time, and situation. Cranial nerves II-XII grossly intact. Motor strength 5/5 in all extremities. Sensory grossly intact. Cerebellar exam normal. Normal gait. Psych: Awake, alert, with orientation to person, place and time. Behavior, mood, and affect are within normal limits. 10:04 ECG was reviewed by the Attending Physician. [facility] Vital Signs: 06:59 BP 176 / 76; Pulse 99; Resp 18; Temp 98.7; Pulse Ox 97% on R/A; Weight 102.06 kg; br2 Height 5 ft. 3 in. ; Pain 8/10; 08:00 BP 145 / 68; Pulse 88; Resp 16; Pulse Ox 98% on R/A; db 10:19 BP 118 / 64; Pulse 73; Resp 16; Pulse Ox 98% on R/A; db 06:59 Body Mass Index 39.86 (102.06 kg, 160.02 cm) br2 06:59 Pain Scale: Adult br2 Niyah Coma Score: 08:10 Eye Response: spontaneous(4). Motor Response: obeys commands(6). Verbal Response: noe oriented(5). Total: 15. MDM: 07:16 Medical Screening Exam initiated noe 08:10 Differential diagnosis: epidural hematoma, hypoglycemia, hyponatremia, intracerebral noe hemorrhage, meningitis, migraine, neoplasm, temporal arteritis, tension headache, trigeminal neuralgia, uremia, vasomotor headache. Data reviewed: vital signs, nurses notes, lab test result(s), EKG, radiologic studies, CT scan, plain films. Consideration of Admission/Observation Escalation of care including admission/observation considered. I considered the following discharge prescriptions or medication management in the emergency department Medications were administered in the Emergency Department. See MAR. Independent interpretation of the following test(s) in the Emergency Department EKG: See my EKG interpretation above. Test considered but Not performed: MRI: no mri brain. Care significantly affected by the following chronic conditions: Hypertension. 10/21 07:22 Order name: Basic Metabolic Panel; Complete Time: 10:03 [facility] 10/21 07:22 Order name: CBC with Diff; Complete Time: 10:03 [facility] 10/21 07:22 Order name: LFT's; Complete Time: 10:03 [facility] 10/21 07:22 Order name: Magnesium; Complete Time: 10:03 [facility] 10/21 07:22 Order name: NT PRO-BNP; Complete Time: 10:03 [facility] 10/21 07:22 Order name: PT-INR; Complete Time: 10:03 [facility] 10/21 07:22 Order name: Troponin HS; Complete Time: 10:03 [facility] 10/21 07:22 Order name: UA Rfx Ray Cult if indicated [facility] 10/21 07:22 Order name: XRAY Chest (1 view); Complete Time: 10:03 [facility] 10/21 07:22 Order name: CT Head Brain wo Cont; Complete Time: 10:03 [facility] 10/21 07:22 Order name: CT Head Angio; Complete Time: 10:03 [facility] 10/21 07:22 Order name: CT Neck Angio; Complete Time: 10:03 [facility] 10/21 07:22 Order name: Cardiac monitoring; Complete Time: 08:32 [facility] 10/21 07:22 Order name: EKG - Nurse/Tech; Complete Time: 08:32 [facility] 10/21 07:22 Order name: IV Saline Lock; Complete Time: 08:17 [facility] 10/21 07:22 Order name: Labs collected and sent; Complete Time: 08:17 [facility] 10/21 07:22 Order name: O2 Per Protocol; Complete Time: 08:17 [facility] 10/21 07:22 Order name: O2 Sat Monitoring; Complete Time: 08:16 [facility] 10/21 07:22 Order name: Oxygen: 2 liters; Complete Time: 08:41 [facility] 10/21 08:10 Order name: Labs - recollect needed: recollect all tubes; Complete Time: 08:32 bd EC:04 Rate is 90 beats/min. Rhythm is regular. QRS [place] is Normal. UT interval is normal. QRS noe interval is normal. QT interval is normal. No Q waves. T waves are Normal. No ST changes noted. Clinical impression: NSR w/ Non-specific ST/T Changes and No evidence of ischemia. Interpreted by me. Reviewed by me. Administered Medications: 08:02 Drug: NS 0.9% IV 1000 ml IV at 1000 ml once; to be given as a bolus over 60 minutes db Route: IV; Rate: 1000 ml; Site: right forearm; 10:35 Follow up: Response: No adverse reaction; IV Status: Completed infusion; IV Intake: db 1000ml 08:02 Drug: metoCLOPramide IVP 10 mg IVP once; over 1 to 2 minutes Route: IVP; Site: right db forearm; 10:30 Follow up: Response: No adverse reaction db 08:03 Drug: diphenhydrAMINE IVP 25 mg IVP once Route: IVP; Site: right forearm; db 10:30 Follow up: Response: No adverse reaction db 08:05 Drug: Ketorolac IVP 15 mg IVP once Route: IVP; Site: right forearm; db 10:30 Follow up: Response: No adverse reaction db Disposition Summary: 10/21/24 10:03 Discharge Ordered Notes: Location: Home noe Problem: new noe Symptoms: have improved noe Condition: Stable noe Diagnosis - Headache noe Followup: noe - With: Private Physician - When: 2 - 3 days - Reason: Recheck today's complaints, Continuance of care, Re-evaluation by your physician Followup: noe - With: Simon Ayoub MD - When: 2 - 3 days - Reason: Recheck today's complaints, Re-evaluation by your physician Discharge Instructions: - Discharge Summary Sheet noe - General Headache Without Cause noe - Migraine Headache noe - Migraine Headache, [id number] noe - General Headache Without Cause, [id number] noe Forms: - Medication Reconciliation Form noe - Antibiotic Education noe - Prescription Opioid Use noe - Patient Portal Instructions [facility] - Leadership Thank You Letter [facility] Prescriptions: - diclofenac sodium 25 mg Oral tablet, delayed release (enteric coated) - take 1 tablet ORAL route 2 times per day; 14 tablet; Refills: 0, Product noe Selection Permitted - ondansetron 4 mg Oral Tablet,disintegrating - take 1 tablet ORAL route every 8 hours prn n/v; 20 tablet; Refills: 0, Product noe Selection Permitted - Tylenol-Codeine #3 300mg-30mg Oral tablet - take 1 tablet ORAL route every 4 hours As needed; 16 tablet; Refills: 0, [facility] Product Selection Permitted Signatures: Dispatcher [employer] EDMO Chiqui Gaona Corey, MD MD cha Benton, Danielle, RN RN Veronica Clements, RN RN br2 Corrections: (The following items were deleted from the chart) 07:23 07:22 BASIC METABOLIC PANEL+C.LAB.BRZ ordered. EDMS EDMS 07:23 07:22 CBC+H.LAB.BRZ ordered. EDMS EDMS 07:23 07:22 HEPATIC FUNCTION+C.LAB.BRZ ordered. EDMS EDMS 07:23 07:22 MAGNESIUM+C.LAB.BRZ ordered. EDMS EDMS 07:23 07:22 PROBNP+C.LAB.BRZ ordered. EDMS EDMS 07:23 07:22 PROTIME (+INR)+COAG.LAB.BRZ ordered. EDMS EDMS : 07:22 Troponin High Sensitivity+C.LAB.BRZ ordered. EDMS EDMS : 07:22 UA Rfx Ray Cult if indicated+U.LAB.BRZ ordered. EDMS EDMS 07: 07:23 Chest Single View+RAD.RAD.BRZ ordered. EDMS EDMS 07: 07:23 Head Brain Wo Cont+CT.RAD.BRZ ordered. EDMS EDMS 07: 07:23 Head Angio+CT.RAD.BRZ ordered. EDMS EDMS 07: 07:23 Neck Angio+CT.RAD.BRZ ordered. EDMS EDMS
[2024-10-21 10:49] LABS: Specific Gravity 1.012 (1.005-1.030); Sqamous Epithelial None Seen /HPF (None Seen); Urine Bacteria None Seen /HPF (<20); Urine Bilirubin NEGATIVE (Negative); Urine Blood Negative (Negative); Urine Clarity Clear (Clear); Urine Color Colorless (Yellow); Urine Culture Reflex Order NOT NEEDED; Urine Glucose 1+ (Negative); Urine Ketones NEGATIVE (Negative); Urine Microscopic Reflex YN ORDER UMIC; Urine Mucus Slight /HPF (None Seen); Urine Nitrite NEGATIVE (Negative); Urine Protein TRACE (Negative); Urine RBC <5 /HPF (None Seen); Urine Urobilinogen Normal (Normal); Urine WBC None Seen /HPF (<5); Urine pH 6.5 (5.0-7.0)
[2024-10-21 13:35] VITALS: TEMP 98.7
[2024-10-21 13:37] VITALS: O2SAT 98
[2024-10-21 13:39] VITALS: BP 118/64
--- NOTE | 2024-10-23 11:50 | EKG ---
Test Date: 2024-10-21 Test Time: 08:28:02 [employer] Order And [employer] Clerk: PATRICIA MEASUREMENT RESULTS: Intervals: Rate: 90 MA: 146 QRSD: 84 QT: 366 QTc: 447 [place]: P: 53 MA: 146 QRS: 58 T: 49 INTERPRETIVE STATEMENTS: Normal sinus rhythm Normal ECG Compared to ECG 02/16/2023 23:43:57 Sinus bradycardia no longer present Electronically Signed On 10-23-24 11:44:24 CDT by Michael Chan
== END 2024-10-21 10:36 | disposition home or self-care (01) ==
LOC: ER 06:30
DX: R51.9 Headache, unspecified (principal)
CPT/HCPCS: 96361; 93005; 85025; 81001; 80048; 36415; 83735; 85610; 80076; 84484; 83880; 70450; 70496; 70498; 71045; 96375; 96374; 99285; Q9967; J2765; J1200; J7030